=== PATIENT | female | born 1975 | race Caucasian/White ===

== ENCOUNTER 2017-08-19 13:25 | Emergency (ER) | payer OTHER, SELFPAY ==
[2017-08-19] VITALS (7 sets, daily range): BP systolic 99–135; BP diastolic 65–90; PULSE 72–86; RESP 14–18; TEMP 36.6; O2SAT 99–100; BMI 25.2
--- NOTE | 2017-08-19 13:50 | NURSING ---
NO OLD EKGS
--- NOTE | 2017-08-19 14:45 | RAD_ITS ---
STUDY: X-RAY CHEST REASON FOR EXAM: Female, 41 years old. Chest pain. TECHNIQUE: Single AP portable view of the chest. COMPARISON: None. FINDINGS: EKG liquids are seen. The lungs are clear and expanded. There is no demonstrated pleural abnormality. Normal size heart. Normal mediastinum and stephen. Normal visualized pulmonary arteries. Normal visualized aortic arch and descending thoracic aorta. Minimal dextroscoliosis. Normal visualized ribs, clavicles, and shoulders. There is no demonstrated abnormality of the visualized soft tissue structures of the upper abdomen. RAD/Chest 1 View (Portable) IMPRESSION: Normal x-ray examination of the chest. Electronically Signed: Timbo Wagner MD at 15:32 EST Tel [phone], Service support ,
--- NOTE | 2017-08-19 14:45 | EKG12_ITS ---
Test Reason : CP Blood Pressure : / mmHG Vent. Rate : 072 BPM Atrial Rate : 072 BPM P-R Int : 172 ms QRS Dur : 082 ms QT Int : 366 ms P-R-T Axes : 073 074 052 degrees QTc Int : 400 ms Normal sinus rhythm with sinus arrhythmia Normal ECG Confirmed by PARUL BERNARD, MAYUR ([id number]), website/blog editor EFRAIN GUTIERREZ ([id number]) on 08/20/2017 2:26:58 PM Referred By: COURTNEY/MARY Confirmed By:MAYUR TERAN MD
[2017-08-19 14:56] LABS: Absolute Lymphocyte Count 2.29 X10^3/ul (0.83-4.51); Absolute Neutrophil Count 5.4 X10^3/uL (2.0-7.7); Basophil# 0.03 X10^3/uL; Basophil% 0.4 % (0-1); Eosinophil# 0.14 X10^3/uL; Eosinophils% 1.6 % (0-5); Hemoglobin 11.4 g/dl (12.0-15.0); Lymphocyte # 2.29 X10^3/ul (4.0); Lymphocyte % 26.9 % (19-41); Mean Corp Hgb Conc 31.7 g/gl (32-36); Mean Corpuscular Hgb 28.5 pg (27.0-32.0); Mean Platelet Vol. 10.7 fl (6.2-12.0); Monocyte# 0.62 X10^3/uL; Monocyte% 7.3 % (0-10); Neutrophil # 5.42 X10^3/uL (2.7-7.7); Neutrophil % 63.7 % (47-70); POSITIVE COUNT NO; POSITIVE DIFFERENTIAL NO; POSITIVE MORPHOLOGY NO; Platelet Count 269 K/mm3 (150-450); RBC Distribution Width SD 56.3 fl (35.1-43.9); White Blood Count 8.5 K/mm3 (4.4-11.0)
[2017-08-19] MEDS: Aspirin 81 MG TAB.CHEW 324 MG PO (14:57)
[2017-08-19 15:09] LABS: Anion Gap 4 (5-15); BUN 13 mg/dL (7-18); BUN/Creat Ratio 14.8 RATIO (10-20); Calcium,Total 8.7 mg/dL (8.5-10.1); Chloride 107 mmol/L (98-107); Creatinine, Serum 0.88 mg/dL (0.55-1.02); EST Glomerular Filtration Rate 74 mL/min (>60); Est Glom Filt Rate - Afr Amer 90 mL/min (>60); Estimated Creatinine Clearance 77.17 ml/min; Glucose 77 mg/dL (74-106); Potassium 3.6 mmol/L (3.5-5.1); Sodium Level 139 mmol/L (136-145)
--- NOTE | 2017-08-19 17:08 | ED.VISSUMM ---
- ER Visit Summary Date of Service: 08/19/17 Chief Complaint: Chest pain History of Present Illness: The patient is a 41 F sudden chest pressure awakening her at 3 AM this morning. Waxing and waning symptoms. States feels like somebody sitting on her chest. No radicular symptoms. No nausea, dyspnea, diaphoresis. Patient saw the urgent care was sent here. States she was diagnosed with a PE this past May postsurgical complication. States an ACL repair at that time. She is taking her Eliquis twice a day with no missed doses. No tobacco history. No family history of MIs young age. Denies history of hypertension, hypercholesterolemia, or diabetes. No other complaints. Physical Examination: General: Alert and oriented ?3, no acute distress HEENT: Normocephalic, atraumatic. Moist mucosa membranes Neck: supple, nontender. Cardiovascular: Regular rate and rhythm, no murmurs Respiratory: Normal breath sounds, symmetric, no distress Abdomen: Soft, nontender, nondistended Extremities: Nontender, no edema, pulses intact ?4 Neuro: no focal neurological deficits. Test Results: EKG: Sinus, rate of 72, no ST or T-wave changes. Cardiac workup screw troponin is negative. Repeat troponin pending. Emergency Department Course and Treatment: Patient no acute distress complains of pressure symptoms. EKG negative. Cardiac workup initiated negative. She given aspirin, she had resolution of symptoms after 2 nitro sublingual. Heart score is a 1. GERA score 0. She is currently taking her Eliquis twice a day with no missed doses, less likely PE in nature. Discussed heart pathway guideline with the patient, she is low risk. Discussed with her symptoms resolve after 2 nitro, I recommended repeating troponin at 3 hours for further evaluation. If negative she can follow up with her PCP for outpatient testing. She agrees with the plan. Patient be signed out afternoon physician for follow-up on troponin. Treatment Plan: [] Disposition: Plan discharge Impression: Acute chest pain This note was generated with [employer] dictation software. It may contain incorrect words, spelling, and punctuation that were not noted in review of the chart prior to signing ED Disposition - Plan for ED Patient: Chief Complaint: Chest Pain Diagnosis: Chest pain Instructions: ED Chest Pain Atypical Unkn Cause Referrals: Kyle Young MD [Primary Care Provider] - 3-5 Days
--- NOTE | 2017-08-19 17:12 | ED.DCSUM_ITS ---
- ER Visit Summary Date of Service: 08/19/17 Chief Complaint: Chest pain History of Present Illness: The patient is a 41 F sudden chest pressure awakening her at 3 AM this morning. Waxing and waning symptoms. States feels like somebody sitting on her chest. No radicular symptoms. No nausea, dyspnea , diaphoresis. Patient saw the urgent care was sent here. States she was diagnosed with a PE this past May postsurgical complication. States an ACL repair at that time. She is taking her Eliquis twice a day with no missed doses. No tobacco history. No family history of MIs young age. Denies history of hypertension, hypercholesterolemia, or diabetes. No other complaints. Physical Examination: General: Alert and oriented ?3, no acute distress HEENT: Normocephalic, atraumatic. Moist mucosa membranes Neck: supple, nontender. Cardiovascular: Regular rate and rhythm, no murmurs Respiratory: Normal breath sounds, symmetric, no distress Abdomen: Soft, nontender, nondistended Extremities: Nontender, no edema, pulses intact ?4 Neuro: no focal neurological deficits. Test Results: EKG: Sinus, rate of 72, no ST or T-wave changes. Cardiac workup screw troponin is negative. Repeat troponin pending. Emergency Department Course and Treatment: Patient no acute distress complains of pressure symptoms. EKG negative. Cardiac workup initiated negative. She given aspirin, she had resolution of symptoms after 2 nitro sublingual. Heart score is a 1. GERA score 0. She is currently taking her Eliquis twice a day with no missed doses, less likely PE in nature. Discussed heart pathway guideline with the patient, she is low risk. Discussed with her symptoms resolve after 2 nitro, I recommended repeating troponin at 3 hours for further evaluation. If negative she can follow up with her PCP for outpatient testing. She agrees with the plan. Patient be signed out afternoon physician for follow-up on troponin. Treatment Plan: [] Disposition: Plan discharge Impression: Acute chest pain This note was generated with [employer] dictation software. It may contain incorrect words, spelling, and punctuation that were not noted in review of the chart prior to signing ED Disposition - Plan for ED Patient: Chief Complaint: Chest Pain Diagnosis: Chest pain Instructions: ED Chest Pain Atypical Unkn Cause Referrals: Kyle Young MD [Primary Care Provider] - 3-5 Days
--- NOTE | 2017-08-19 18:28 | ED.VISSUMM ---
- ER Visit Summary Date of Service: 08/19/17 Addendum: This patient was checked out to me by Dr. Loyola with a repeat troponin pending. This is returned and is negative. Test Results: Repeat troponin is less than 0.02. Emergency Department Course and Treatment: Patient is resting comfortably and without complaint. Treatment Plan: She will be discharged instructions to follow-up per Dr. Loyola's dictation. Return to the emergency department for any worsening symptoms. Disposition: To home in improved and stable condition. This note was generated with [employer] dictation software. It may contain incorrect words, spelling, and punctuation that were not noted in review of the chart prior to signing ED Disposition - Plan for ED Patient: Chief Complaint: Chest Pain Diagnosis: Chest pain Instructions: ED Chest Pain Atypical Unkn Cause Referrals: Kyle Young MD [Primary Care Provider] - 3-5 Days
== END 2017-08-19 19:09 | disposition home or self-care (01) ==
PROVIDERS: Emergency Provider Emergency Medicine; Family Provider Family Medicine; PCP Family Medicine
DX: R07.89 Other chest pain (principal); Z86.711 Personal history of pulmonary embolism; Z86.718 Personal history of other venous thrombosis and embolism; Z79.02 Long term (current) use of antithrombotics/antiplatelets; Z79.899 Other long term (current) drug therapy
CPT/HCPCS: 71045; 80048; 84484; 85025; 93005; 99285; A4216

== ENCOUNTER 2017-10-02 09:00 | Outpatient (RCR) | payer OTHER, SELFPAY ==
--- NOTE | 2017-06-20 16:59 | HP.PTEVAL ---
Patient's Visit Information CARLOS NEGRON is a 41 year old F referred to Physical Therapy by Kevin Smith DO with a diagnosis of s/p L ACL allograft 05/28. Date of Evaluation: 06/20/17 Physical Therapist: Qasim Paredes DPT, OC - Visit Plan Frequency: 3x /Week Duration: 4 Months Plan: 3x/week for first month then likely 2x/week for total of 16 weeks for progression of ... 1. A/PROM L knee and stretch quad and HS and ITB and patellar mobs. 2. Strength L LE to tolerance. 3. gait training. 4. Swelling management with ice and elevation. Has blood clotquad - Subjective Subjective: May 28 L ACL, blood clots 6 days later. One went to lung. Now on eloquist. Dr. Ortega 3 taking care of blood clots, no precautions. To ER if pain on inner L leg. Gets cramping in thigh. Pain level is not good. Up to 6/10 with brace on improperly or bending it. No pain at rest. Sleeps not good due to brace . Needs to wear it, locked in WB. Sleeps on side with pillow. 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 Doing basic ADLs at home. Wants to ride a bike 60 miles per week. Elliptical. Wants to run 5K. - Pain L knee anterior. Pain Intensity (Out of 10): 0 Pain Intensity Range: 0, 6 - Objective 54cm R and 51 L 6 inch suprapatella girth. -2 to 65 degrees L knee motion, patella very stiff vs R. to 70 degrees seated and hanging. Pt has very difficult time relaxing. SLR very difficult and needs mental reaasurance, 10 degree ext lag. Hip strength 4- L and 4 R, Knee L not tested strength. R knee strength 4+. ankle motion full and painfree B. Walks FWB with brace locked with good gait pattern, more sore without AD, recommended continuing with AD until not sore. Transfers to and fro supine I. Atrophy apparent in L quad and hard time getting solid contraction today in supine. - Goals Goal 1:: ST: 0-125 degree AROM without pain and good quad contraction. Goal Time Frame: 4-6 Weeks Goal 2:: ST: walk community without AD withtout brace when allowed by doctor. Goal Time Frame: 4-6 Weeks Goal 3:: ST: steps reciprocal without pain. Goal Time Frame: 4-6 Weeks Goal 4:: LT: plan to return to work and start train for 5k Goal Time Frame: 12-16 Weeks - Rehabilitation Potential Physical Therapy Diagnosis: ACL tear s/p repair Rehabilitation Potential: Good - Anticipated Interventions Patient/Client Instruction: Educate patient on: Plan of Care For the Purpose of:: To decrease pain, To decrease swelling/inflammation, To increase ROM, To improve nutrient delivery to tissue Therapeutic Exercise to Include: Strength training, Flexibilty training, Gait and locomotor training, Passive ROM, Active ROM Comment: eventual return to function. For the Purpose of:: To decrease pain, To decrease swelling/inflammation, To increase ROM, To improve nutrient delivery to tissue, To improve ability of physical actions for home/community/work/leisure, To improve gait and locomotor functions Manual Therapy Techniques to Include: Passive ROM Comment: patellar mobs For the Purpose of:: To increase ROM Cryotherapy (ice pack, ice massage): Yes For the Purpose of:: To decrease swelling/inflammation Thank you for the opportunity to evaluate your patient. For Medicare and Medicare HMO plans, please review the plan of care and approve it. It will need to be FAXED BACK to us at [phone] for Medicare purposes. Please let me know if there are questions or concerns regarding this plan of care. Physician Signature: Date:
--- NOTE | 2017-08-01 19:04 | HP.PTREVAL_ITS ---
Kevin Smith, DO, It has been my pleasure to treat CARLOS NEGRON over the last 16 visits for s/p L ACL allograft 05/28. Please see the progress note below for an update on the physical therapy plan of care! Subjective: [place] on vacation. Walked alot and felt better as she walked more. Objective/Function: 0-115 actively and 117 passively. Walking looks good. Steps are mentally challenging. Pt has pain under kneecap with WB ecc quad that she mentally cannot force herself to do. I think she needs to to help the scar tissue remodel. OVERALL PATIENT DOING MUCH BETTER WITH ROM BUT IS OVERPROTECTIVE WITH PAIN AT END RANGES AND DOWS NOT DEAL WITH PAIN WELL IN GENERAL. NEEDS TO PROGRESS TO STRENGTHENING AND GET OVERF MENTAL JASPER OF PAIN UNDER KNEECAP WITH WB STRENGTH/STEPS/CHAIR TRANSFER. Plan Plan: 3X/WEEK FOR 3-4...Gym based LE strengthening, dips, chair squats, monitor ROM. Pt to doctor Saturday, then hoff ee to progress strengthening. Goals Goal 1:: ST: 0-125 degree AROM without pain and good quad contraction. Goal Time Frame: 4-6 Weeks Goal 2:: ST: walk community without AD withtout brace when allowed by doctor. Goal Time Frame: 4-6 Weeks Goal Progress: Goal Met Goal 3:: ST: steps reciprocal without pain. Goal Time Frame: 4-6 Weeks Goal 4:: LT: plan to return to work and start train for 5k Goal Time Frame: 12-16 Weeks Anticipated Interventions Patient/Client Instruction: Educate patient on: Plan of Care For the Purpose of:: To decrease pain, To decrease swelling/inflammation, To increase ROM, To improve nutrient delivery to tissue Therapeutic Exercise to Include: Strength training, Flexibilty training, Gait and locomotor training, Passive ROM, Active ROM Comment: eventual return to function. For the Purpose of:: To decrease pain, To decrease swelling/inflammation, To increase ROM, To improve nutrient delivery to tissue, To improve ability of physical actions for home/community/work/leisure, To improve gait and locomotor functions Manual Therapy Techniques to Include: Passive ROM Comment: patellar mobs For the Purpose of:: To increase ROM Cryotherapy (ice pack, ice massage): Yes For the Purpose of:: To decrease swelling/inflammation Please do not hesitate to contact me at [phone] by phone or Fax: if you have questions or concerns regarding this new plan of care! Sincerely, Qasim Paredes, DPT, OC
--- NOTE | 2017-08-07 10:22 | HP.PTREVAL_ITS ---
Kevin Smith, DO, It has been my pleasure to treat CARLOS NEGRON over the last 18 visits for s/p L ACL allograft 05/28. Please see the progress note below for an update on the physical therapy plan of care! Subjective: Did 10 min on ellitical and bike x 10 min each and was very tired. Objective/Function: ot behind knee cap hurts with squats and leg press concentrically. 124 degree flexion today. OVERALL DOING WELL WITH IMPROVING ROM, STILL VERY WEAK EXPECTEDLY IN L KNEE. TOLERATING NEW ACTIVITIES WELL. HAS MUSCLE CONTRACTIONS THAT LIMIT PASSIVE MOBILITY, ROM MUCH BETTER WHEN SHE IS IN CONTROL Plan Plan: 3x/week x 3 weeks for strength, patellar mobs and ensure improving RPOM ext adn flexion L knee. Goals Goal 1:: ST: 0-125 degree AROM without pain and good quad contraction. Goal Time Frame: 4-6 Weeks Goal 2:: ST: walk community without AD withtout brace when allowed by doctor. Goal Time Frame: 4-6 Weeks Goal Progress: Goal Met Goal 3:: ST: steps reciprocal without pain. Goal Time Frame: 4-6 Weeks Goal 4:: LT: plan to return to work and start train for 5k Goal Time Frame: 12-16 Weeks Anticipated Interventions Patient/Client Instruction: Educate patient on: Plan of Care For the Purpose of:: To decrease pain, To decrease swelling/inflammation, To increase ROM, To improve nutrient delivery to tissue Therapeutic Exercise to Include: Strength training, Flexibilty training, Gait and locomotor training, Passive ROM, Active ROM Comment: eventual return to function. For the Purpose of:: To decrease pain, To decrease swelling/inflammation, To increase ROM, To improve nutrient delivery to tissue, To improve ability of physical actions for home/community/work/leisure, To improve gait and locomotor functions Manual Therapy Techniques to Include: Passive ROM Comment: patellar mobs For the Purpose of:: To increase ROM Cryotherapy (ice pack, ice massage): Yes For the Purpose of:: To decrease swelling/inflammation Please do not hesitate to contact me at [phone] by phone or Fax: if you have questions or concerns regarding this new plan of care! Sincerely, Qasim Paredes, DPT, OC
--- NOTE | 2017-08-30 09:54 | HP.PTREVAL_ITS ---
Kevin Smith, DO, It has been my pleasure to treat CARLOS NEGRON over the last 24 visits for s/p L ACL allograft 05/28. Please see the progress note below for an update on the physical therapy plan of care! Subjective: Had sinus infection Saturday. 0-3/10 pain. 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 To doctor in 3 months. Sleeping well. Working normal job. Activities at home are normal. Half way to normal workout , still working on strength and cardio. Not icing at all. Wants to wean off of therapy. Objective/Function: 0-125 aROM today, tighness present in quad and palpable nodules above kneecap but decent knee cap mobility. Walks without deviations, steps reciprocal without rail. OVERALL DOING GREAT. HAS BEEN A LONG ROAD TO HOE. WILL WEAN OFF OF THERAPY OVER THE NEXT MONTH TO MONITOR ROM AND SORENESS/ STIFFNESS WHICH IS HER BIGGEST BEEF BUT NOT UNEXPECTED AT THIS POINT. Plan Plan: 1X/WEEK FOR 4-5 WEEKS TO MONITOR rom, PATELLAR MOBS, QUAD AND hs ROLL AND STRETCH AND ENSURE PROGRESS. Goals Goal 1:: ST: 0-125 degree AROM without pain and good quad contraction. Goal Time Frame: 4-6 Weeks Goal Progress: Goal Met Goal 2:: ST: walk community without AD withtout brace when allowed by doctor. Goal Time Frame: 4-6 Weeks Goal Progress: Goal Met Goal 3:: ST: steps reciprocal without pain. Goal Time Frame: 4-6 Weeks Goal Progress: Goal Met Goal 4:: LT: plan to return to work and start train for 5k Goal Time Frame: 12-16 Weeks Goal Progress: Progressing Goal 5:: Stoop comfortably and recover. Goal Time Frame: 4-6 Weeks Goal Progress: NEW GOAL Goal 6:: ENsure progression with ROM and comfort with workout wioth less therapy in order to D/C Goal Time Frame: 4-6 Weeks Goal Progress: NEW GOAL Anticipated Interventions Patient/Client Instruction: Educate patient on: Plan of Care For the Purpose of:: To decrease pain, To decrease swelling/inflammation, To increase ROM, To improve nutrient delivery to tissue Therapeutic Exercise to Include: Strength training, Flexibilty training, Gait and locomotor training, Passive ROM, Active ROM Comment: eventual return to function. For the Purpose of:: To decrease pain, To decrease swelling/inflammation, To increase ROM, To improve nutrient delivery to tissue, To improve ability of physical actions for home/community/work/leisure, To improve gait and locomotor functions Manual Therapy Techniques to Include: Passive ROM Comment: patellar mobs For the Purpose of:: To increase ROM Cryotherapy (ice pack, ice massage): Yes For the Purpose of:: To decrease swelling/inflammation Please do not hesitate to contact me at [phone] by phone or Fax: if you have questions or concerns regarding this new plan of care! Sincerely, Qasim Paredes, DPT, OC
--- NOTE | 2017-12-05 15:47 | HP.PTDCSUM_ITS ---
HP - PT D/C Summary It has been my pleasure to treat CARLOS NEGRON under orders from Kevin Smith DO, for the diagnosis of s/p L ACL allograft 05/28 for a total of 27 visit(s). Discharge Date: 10/02/17 Please see the following information for a summary of their discharge status. - Subjective Subjective: Muscles are sore from working out with industrial trainer. Feeling good otherwise. - Pain L knee anterior. Pain Intensity (Out of 10): 0 - Objective Objective/Function: 0-137 degrees with overpressure into both ranges. End range pain. Right knee 0-155 - Goals Goal 1:: ST: 0-125 degree AROM without pain and good quad contraction. Goal Progress: Goal Met Goal 2:: ST: walk community without AD withtout brace when allowed by doctor. Goal Progress: Goal Met Goal 3:: ST: steps reciprocal without pain. Goal Progress: Goal Met Goal 4:: LT: plan to return to work and start train for 5k Goal Progress: Progressing Goal 5:: Stoop comfortably and recover. Goal Progress: Progressing Goal 6:: ENsure progression with ROM and comfort with workout wioth less therapy in order to D/C Goal Progress: Goal Met - Plan Plan: Re-check with Qasim Paredes DPT. 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 If there are questions or concerns regarding this patient's physical therapy, please feel free to call me at [phone]. Thank you for the referral of this patient. Sincerely, Qasim Paredes, JULIENT, OC
== END 2017-10-02 19:00 | disposition home or self-care (01) ==
LOC: PT 09:00
PROVIDERS: Family Provider Family Medicine; PCP Family Medicine; Visit Provider Orthopaedic Surgery
DX: Z98.890 Other specified postprocedural states (principal)
CPT/HCPCS: 97014; 97110; 97140; 97161; 97530; G0283

== ENCOUNTER 2018-01-16 19:52 | Emergency (ER) | payer OTHER, SELFPAY ==
[2018-01-16 19:54] VITALS: BP 128/69; PULSE 105; PULSE 111; RESP 18; TEMP 36.7; O2SAT 96; O2SAT 97; BMI 24.3
[2018-01-16] MEDS: DiphenhydrAMINE 50 MG/ML Syringe 25 MG IV (20:21)
[2018-01-16] MEDS: 0.9% Normal Saline 1,000 ML 1000 ML IV (20:21)
[2018-01-16 20:33] LABS: Absolute Lymphocyte Count 2.26 X10^3/ul (0.83-4.51); Absolute Neutrophil Count 4.6 X10^3/uL (2.0-7.7); Basophil# 0.02 X10^3/uL; Basophil% 0.3 % (0-1); Eosinophil# 0.07 X10^3/uL; Hematocrit 38.3 % (37-47); Hemoglobin 12.1 g/dl (12.0-15.0); Lymphocyte # 2.26 X10^3/ul (4.0); Mean Corp Hgb Conc 31.6 g/gl (32-36); Mean Corpuscular Hgb 27.4 pg (27.0-32.0); Mean Corpuscular Volume 86.7 fL (81-99); Mean Platelet Vol. 10.4 fl (6.2-12.0); Monocyte# 0.38 X10^3/uL; Monocyte% 5.2 % (0-10); Neutrophil # 4.55 X10^3/uL (2.7-7.7); Neutrophil % 62.5 % (47-70); Platelet Count 278 K/mm3 (150-450); RBC Distribution Width CV 17.3 % (11.6-14.6); RBC Distribution Width SD 54.4 fl (35.1-43.9); Red Blood Count 4.42 M/mm3 (4.2-5.4); White Blood Count 7.3 K/mm3 (4.4-11.0)
[2018-01-16 20:34] LABS: POSITIVE COUNT NO; POSITIVE DIFFERENTIAL NO; POSITIVE MORPHOLOGY NO
[2018-01-16 20:47] LABS: Anion Gap 8 (5-15); BUN 17 mg/dL (7-18); BUN/Creat Ratio 15.7 RATIO (10-20); Chloride 103 mmol/L (98-107); Creatinine, Serum 1.08 mg/dL (0.55-1.02); EST Glomerular Filtration Rate 59 mL/min (>60); Est Glom Filt Rate - Afr Amer 71 mL/min (>60); Estimated Creatinine Clearance 62.23 ml/min; Glucose 77 mg/dL (74-106); Potassium 3.9 mmol/L (3.5-5.1); Sodium Level 142 mmol/L (136-145)
--- NOTE | 2018-01-16 20:51 | ED.VISSUMM ---
- ER Visit Summary Date of Service: 01/16/18 Chief Complaint: Rectal bleeding History of Present Illness: The patient is a 42 F resents to the emergency department with sudden onset rectal bleeding. Patient has a history of hemorrhoids. She actually follows with Dr. Corrales. The patient has a history of pulmonary embolus after a knee surgery and is fully anticoagulated on Eliquis. She states that she was at a dinner republican tonight. She states that she had sudden onset and felt like something burst. She states that she had a difficult time getting it to stop so she presented here. Physical Examination: Vital signs reviewed General: Well-nourished, well-developed Head: Normocephalic, atraumatic Eyes: Pupils equal and reactive, extraocular muscles intact Neck, supple, no lymphadenopathy Heart: Regular rate and rhythm Respiratory: No distress, clear bilaterally Abdomen: Soft, nontender, nondistended, no peritoneal signs Back: Nontender Extremities: Nontender, no edema, no cords Skin: Normal color no rash Neuro: Alert and oriented, no focal or lateralizing deficits Test Results: [] Emergency Department Course and Treatment: Rectal exam was done with nurse fire range technician. Patient does have a partially thrombosed hemorrhoid at the 4 o'clock position with some venous bleeding. Surgifoam and pressure dressing was applied. Patient was observed. She did have some slight rebleeding when she went to the bathroom. She was repacked. The patient was observed for another hour and her bleeding is stopped. I did discuss care with Dr. Cuevas who agreed with outpatient follow-up as the patient is established with Dr. Corrales. Again, she has had no further bleeding. Blood counts are within normal limits. She has had resolution of her tachycardia. I do feel that she is safe for outpatient therapy. Treatment Plan: [] Disposition: Discharge Impression: 1. Bleeding hemorrhoid-resolved This note was generated with [employer] dictation software. It may contain incorrect words, spelling, and punctuation that were not noted in review of the chart prior to signing ED Disposition - Plan for ED Patient: Disposition: Home or Assisted Living Chief Complaint: GI Bleed Instructions: ED Hemorrhoids Referrals: Vin Aguilar MD [STAFF PHYSICIAN] -
[2018-01-16 22:13] VITALS: BP 119/71; PULSE 81; RESP 16; O2SAT 99
== END 2018-01-16 22:15 | disposition home or self-care (01) ==
LOC: ED 20:40
PROVIDERS: Emergency Provider Emergency Medicine; Family Provider Family Medicine; PCP Family Medicine
DX: K64.5 Perianal venous thrombosis (principal); K62.5 Hemorrhage of anus and rectum; Z86.711 Personal history of pulmonary embolism; Z79.02 Long term (current) use of antithrombotics/antiplatelets; Z79.899 Other long term (current) drug therapy
CPT/HCPCS: 80048; 85025; 96361; 96374; 99283; J7030

== ENCOUNTER 2018-09-29 09:22 | Emergency (ER) | payer OTHER, SELFPAY ==
[2018-05-29 10:09] VITALS: BMI 24.3
[2018-09-29 09:22] VITALS: BP 112/80; PULSE 88; RESP 16; TEMP 36.4; O2SAT 100; BMI 25.2
--- NOTE | 2018-09-29 09:54 | CT_ITS ---
STUDY: CT BRAIN WITHOUT CONTRAST REASON FOR EXAM: Female, 42 years old. Headaches. Sinusitis. RADIATION DOSAGE (If Supplied By Facility): CTDIvol = ( 44.99 ) mGy, DLP = ( 745.49 ) mGycm TECHNIQUE: Transaxial CT imaging of the brain was performed without administration of intravenous contrast material. Individualized dose optimization techniques were used for this CT. COMPARISON: Comparison is made with prior study dated March 14, 2013. FINDINGS: Normal soft tissue structures. Normal calvarium. Normal size ventricles and extra-axial spaces for the patient's age. Normal white matter tracts of the cerebral hemispheres. There is a 5.7 mm subtle hypodensity in the left thalamus. This may represent a lacunar infarct. A similar appearing lacunae is seen in the right basal ganglion. Normal brainstem. Normal cerebellum. There is no intracranial hemorrhage. There are no findings of an acute ischemic infarction. Partial opacification of the ethmoid sinuses. Mucosal polyp or retention cyst at the base of the left maxillary sinus. CT/Brain/Head without Contrast IMPRESSION: 5.7 mm subtle hypodensity in the left thalamus. A tiny lacuna is also seen in the right basal ganglion. Electronically Signed: Timbo Wagner, at 10:54 EDT , Service support ,
[2018-09-29] MEDS: DiphenhydrAMINE 50 MG/ML Syringe IV (10:20)
[2018-09-29] MEDS: 0.9% Normal Saline 1,000 ML 999 ML IV (10:20)
[2018-09-29] MEDS: proCHLORPERazine 10 MG/2 ML Vial IV (10:20)
[2018-09-29] MEDS: Ketorolac 30 MG/ML Syringe IV (10:20)
--- NOTE | 2018-09-29 10:24 | ED.DCSUM_ITS ---
- ER Visit Summary Date of Service: 09/29/18 Chief Complaint: Headache History of Present Illness: The patient is a [address] Lew Ortega III. She reports that she has a headache that began yesterday. Is gradually gotten worse. Is a diffuse dull pain with sharp pain posterior to her right eye. S tates is 10 out of 10 in severity. Is worsened by movement or light. She is taking Excedrin, Advil, and Benadryl without relief. She does report that she has photophobia and blurred vision. She denies any fever. She has had nausea without vomiting. She denies any numbness or weakness. Patient also reports that she has had sinus congestion and drainage over the past few days. However, she reports that she has not had a fever. No purulent drainage. Physical Examination: Vitals: Stable. Afebrile. General: Well-nourished and well-developed. Head: Normocephalic atraumatic. Neck: Supple, no lymphadenopathy. No JVD. Nontender. Cardiovascular: Regular rate and rhythm. No murmurs. Respiratory: No respiratory distress. Clear to auscultation bilaterally. Abdominal: Soft, nontender, nondistended, normal bowel sounds. No guarding, rebound, or peritoneal signs. Back: Nontender. Extremities: Nontender, no edema. Skin: Normal color, no rash. Neurologic: Alert and oriented ?3. Cranial nerves II through XII are intact. Normal strength and sensation. Psych: Normal affect. Test Results: CT head shows a 5.7 mm subtle hypodensity in the left thalamus. Tiny lacunae in the right basal ganglia. Because of this an MRI was obtained which shows no lesions. CBC shows segment neutrophils 80 and lymphocytes 13. Chem-7 shows a chloride of 110. test is negative. Clinical Impression(s) from Imaging Studies Brain CT 09/29/18 09:54 IMPRESSION: 5.7 mm subtle hypodensity in the left thalamus. A tiny lacuna is also seen in the right basal ganglion. Electronically Signed: Timbo Wagner, at 10:54 EDT , Service support , Brain MRI 09/29/18 11:17 IMPRESSION: Normal unenhanced MRI of the brain. Electronically Signed: Chanel Ryder MD at 13:00 EDT Tel , Service support , Emergency Department Course and Treatment: Patient had an IV placed. She is given Toradol, Benadryl, and Compazine IV. She is resting comfortably. Treatment Plan: Patient will be discharged instructions follow-up Dr. Lew Ortega iii in 1-2 days if not improving. Return to the emergency department for any worsening symptoms. Disposition: To home in improved and stable condition. Impression: 1. Cephalgia. This note was generated with [employer] dictation software. It may contain incorrect words, spelling, and punctuation that were not noted in review of the chart prior to signing ED Disposition - Plan for ED Patient: Disposition: Home or Assisted Living Instructions: ED Cephalgia Unspecified Referrals: Lew Ortega III, MD [Primary Care Provider] - 1-2 Days if not improving
--- NOTE | 2018-09-29 11:17 | MRI_ITS ---
STUDY: MRI BRAIN WITHOUT CONTRAST REASON FOR EXAM: Female, 42 years old. headache, hx migraines, follow up to abnormal ct brain. TECHNIQUE: Standardized multiplanar fat and water weighted pulse sequences were obtained. COMPARISON: September 29, 2018 FINDINGS: Normal size of the ventricles and extra-axial spaces for the patient's age. Normal white matter tracts of the supratentorial brain. Normal bilateral basal ganglia. Normal thalami. There is no extra-axial fluid accumulation. Normal flow voids within the major intracranial circulation suggesting patency by spin echo criteria. Normal sella turcica, pituitary gland, infundibular stalk, optic chiasm and hypothalamus. Normal tectal plate and pineal gland. Normal midbrain, corie and medulla. Normal cerebellum. Normal basal cisterns. Normal bilateral temporal bones. Normal bilateral internal auditory canals. MRI/Brain without Contrast IMPRESSION: Normal unenhanced MRI of the brain. Electronically Signed: Chanel Ryder MD at 13:00 EDT Tel , Service support ,
[2018-09-29 12:27] LABS: Absolute Lymphocyte Count 1.17 X10^3/ul (0.83-4.51); Absolute Neutrophil Count 7.5 X10^3/uL (2.0-7.7); Basophil# 0.01 X10^3/uL; Basophil% 0.1 % (0-1); Eosinophil# 0.04 X10^3/uL; Eosinophils% 0.4 % (0-5); Hematocrit 39.2 % (37-47); Hemoglobin 12.8 g/dl (12.0-15.0); Lymphocyte # 1.17 X10^3/ul (4.0); Lymphocyte % 12.6 % (19-41); Mean Corp Hgb Conc 32.7 g/gl (32-36); Mean Corpuscular Volume 85.8 fL (81-99); Mean Platelet Vol. 10.9 fl (6.2-12.0); Monocyte# 0.61 X10^3/uL; Monocyte% 6.5 % (0-10); Neutrophil # 7.48 X10^3/uL (2.7-7.7); Neutrophil % 80.3 % (47-70); Platelet Count 253 K/mm3 (150-450); RBC Distribution Width CV 17.5 % (11.6-14.6); RBC Distribution Width SD 54.9 fl (35.1-43.9); Red Blood Count 4.57 M/mm3 (4.2-5.4); White Blood Count 9.3 K/mm3 (4.4-11.0)
[2018-09-29 12:33] LABS: Internal QC Validated? YES +Cl - CLEAR BKGD; Pregnancy, Serum, hCG Quali. NEGATIVE Negative
[2018-09-29 12:37] LABS: Anion Gap 6 (5-15); BUN 13 mg/dL (7-18); BUN/Creat Ratio 12.7 RATIO (10-20); Calcium,Total 8.5 mg/dL (8.5-10.1); Chloride 110 mmol/L (98-107); Creatinine, Serum 1.02 mg/dL (0.55-1.02); EST Glomerular Filtration Rate 62 mL/min (>60); Est Glom Filt Rate - Afr Amer 75 mL/min (>60); Estimated Creatinine Clearance 65.89 ml/min; Glucose 80 mg/dL (74-106); Potassium 4.2 mmol/L (3.5-5.1); Sodium Level 140 mmol/L (136-145)
[2018-09-29 12:40] LABS: POSITIVE COUNT NO; POSITIVE DIFFERENTIAL NO; POSITIVE MORPHOLOGY NO
[2018-09-29 14:00] VITALS: BP 99/72; PULSE 69; RESP 18; O2SAT 99
== END 2018-09-29 14:01 | disposition home or self-care (01) ==
PROVIDERS: Emergency Provider Emergency Medicine; Family Provider Family Medicine; PCP Family Medicine
DX: R51 Headache (principal)
CPT/HCPCS: 70450; 70551; 80048; 84703; 85025; 96361; 96374; 96375; 99284; J7030; A4216

== ENCOUNTER 2018-11-14 08:30 | Outpatient (RCR) | payer OTHER, SELFPAY ==
[2018-10-14 08:56] VITALS: BMI 25.2
[2018-10-20 09:00] VITALS: BMI 25.2
--- NOTE | 2018-10-24 11:31 | HP.PTEVAL_ITS ---
Patient's Visit Information CARLOS NEGRON is a 42 year old F referred to Physical Therapy by Lew Ortega III, MD with a diagnosis of Lumbar strain. Date of Evaluation: 10/24/18 Physical Therapist: Amandeep Moore DPT - Visit Plan Frequency: 2-3x /Week Duration: 4-6 Weeks Plan: Start with gentle lumbar mobs, prone lying, prone prop progressing to REIL as tolerated, gentle TA progression as tolerated. Pt. indicated to progress walking program as tolerated. Pt. consents to POC. May trial DN as tolerated for muscle tension/soreness of lumbar spine. - Subjective Findings: Pt. is here today for her initial evaluatuion with diagnosis of lumbar strain. Pt. 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 This pain was on R side of lumbar spine and into hip at times. Pt. reports this pain alleviated, but ~2-3 weeks ago she was back squating in gym and felt sharp pain in her back and was unable to lift the wt. back up. Pt. reports her pain has been bad since. She does have days that are better and others that are worse. Pt. starts in lubar spine and radiates down L leg to knee. Pt. reports N/T in similar region as well. Increases pain: sitting, bending foward, lifting, and twisting. Decreased pain: walking, sitting upright with good posture. Pt. has been going to chiro for her pain with mixed results. She reports some days she walks out with minimal pain, sometimes is it worse, but the next day is usually better. Pt. is very active and does bar herring lifting in gym. Pt. sleeps on her side with pillow between her knees, but has a hard time getting comfortable. Pt. is hopeful to reduce her symptoms in order to get back to all recreational activities without increase in symptoms. - Pain lumbar spine Pain Intensity (Out of 10): 4 Pain Intensity Range: 2, 8 L left to knee Pain Intensity (Out of 10): 4 Pain Intensity Range: 2, 8 - Objective POSTURE: Pt. has slight L lateral lean, but minimal. Pt. has slight wt. shift to L side. Pt. has also slight flexed posture. PALPATION: Pt. has increased tenderness along B lumbar erector spine, increased pain with spring testing to L3/L4/L5, hypmobility noted at same segments. NEURO: normal sensation of bLes. Normal DTR of bilateral patellar and achilles tendons. Pt. reports N/T in posterior thigh, but not too touch. ROM: lumbar spine: flexion mod/max loss increase NW, ext min/nil loss increase NW, SB min /nil loss increase NW bilat, rotation min loss increase NW bilat. Pt. has normal hip Rom bilaterally without increase in symptoms. MMT: Pt. has normal strength throughout BLEs, no myotomal weaknees. Core strength- fair. GAIT: Pt. ambulates without AD, but does have sligth flexed posture with slight L lateral lean. Pt. reports no increase in symptoms with postural corrections. STAIRS: No issues. - Special Tests L/S Slump test left side: Negative L/S Slump test right side: Positive L/S Left Straight Leg Raise: Negative L/S Right Straight Leg Raise: Positive L/S Instability PA Test: Negative L/S Prone Instability Test: Negative Lumbar Standing: Flexion - Mechanical Response: No effect Lumbar Standing: Flexion - Symptoms During Testing: Increases Lumbar Standing: Flexion - Symptoms After Testing: Worse Lumbar Standing: Extension - Mechanical Response: No effect Lumbar Standing: Extension - Symptoms During Testing: Increases Lumbar Standing: Extension - Symptoms After Testing: No better Lumbar Standing: Right Side Glides - Mechanical Response: No effect Lumbar Standing: Right Side [place] - Symptoms During Testing: No effect Lumbar Standing: Right Side [place] - Symptoms After Testing: No effect Lumbar Standing: Left Side [place] - Mechanical Response: No effect Lumbar Standing: Left Side [place] - Symptoms During Testing: No effect Lumbar Standing: Left Side [place] - Symptoms After Testing: No effect Lumbar Lying: Flexion - Mechanical Response: No effect Lumbar Lying: Flexion - Symptoms During Testing: Decreases Lumbar Lying: Flexion - Symptoms After Testing: No better Lumbar Lying: Extension - Mechanical Response: No effect Lumbar Lying: Extension - Symptoms During Testing: Increases Lumbar Lying: Extension - Symptoms After Testing: No worse Comments:: no pain with initial 50% of motion, increases with final 50% of motion Lumbar Static: Slouched Sit - Mechanical Response: No effect Lumbar Static: Slouched Sit - Symptoms During Testing: Increases Lumbar Static: Slouched Sit - Symptoms After Testing: Worse Lumbar Static: Sitting Erect - Mechanical Response: No effect Lumbar Static: Sitting Erect - Symptoms During Testing: Decreases Lumbar Static: Sitting Erect - Symptoms After Testing: Better Lumbar Static:Lying Prone in Extension - Mechanical Response: No effect Lumbar Static: Lying Prone in Extension - Sx During Testing: Decreases Lumbar Static: Lying Prone in Extension - Sx After Testing: Better - Goals Goal 1:: Pt. to be I with HEP. Goal Time Frame: 4-6 Weeks Goal 2:: Pt. to have increased lumbar ROM by 50% of her motion without increase in symptoms. Goal Time Frame: 4-6 Weeks Goal 3:: Pt. to have no pain with walking for unlimited distances. Goal Time Frame: 4-6 Weeks Goal 4:: Pt. to be able to sit for unlimited time frame without increase in symptoms, allowing for increased job tolerance. Goal Time Frame: 4-6 Weeks Goal 5:: Pt. to reduce radicular symptoms by 50% Goal Time Frame: 4-6 Weeks - Rehabilitation Potential Physical Therapy Diagnosis: Pt. has signs and symptoms consistent wtih radating low back pain. Pt. has pain down her R leg to knee level. Her symptoms reduce in prone lying and prone prop. They increase with final 50% of REIL movements. Pt. had negative prone instability test, + segmental hypomobility at L3-L5 with subsequent pain and + slump test. I am concered more about discogenic involvement from her low back. I talked to her about slowly progressing with prone to prone prop to REIL in pain free ranges. I would like her to add in a walking program and is allow to return to VERY light exercises in gym avoiding flexion based exercises and instructed to avoid loading her spine with wt. Pt. consents. Rehabilitation Potential: Good - Anticipated Interventions Patient/Client Instruction: Educate patient on: Condition, Risk Factors, Benefits of Fitness Program For the Purpose of:: To foster healthy habits, To improve decision making, To facilitate caregiver knowledge, To improve self management, To prevent re- injury, To improve ability to perform tasks related to life management, To improve tolerance to ADL's Therapeutic Exercise to Include: Strength training, Power training, Postural training, Flexibilty training, Passive ROM, Active ROM, Dynamic Lumbar Stabilization, Mandy Exercises For the Purpose of:: To decrease pain, To decrease swelling/inflammation, To increase ROM, To improve nutrient delivery to tissue, To increase oxygenation perfusion, To improve muscle performance and motor function, To improve ability to perform ADL's, To increase tolerance to activity/condition/position, To decrease soft tissue restriction, To increase flexibility/ROM Manual Therapy Techniques to Include: Mobilization, Passive ROM, Functional dry needling, Soft tissue mobilization For the Purpose of:: To decrease pain, To decrease swelling/inflammation, To increase ROM, To improve nutrient delivery to tissue, To increase oxygenation perfusion, To improve muscle performance and motor function Thank you for the opportunity to evaluate your patient. For Medicare and Medicare HMO plans, please review the plan of care and approve it. It will need to be FAXED BACK to us at [phone] for Medicare purposes. For Medicare only, by signing this I certify the plan of care. Please let me know if there are questions or concerns regarding this plan of care. Physician Signature: Date:
--- NOTE | 2019-02-17 11:01 | HP.PTDCNRP_ITS ---
HP - Discharge Summary (1) - Patient Information CARLOS NEGRON was seen in my office for initial evaluation on 10/24/18. The following Plan of Care was established for this patient: Initial Frequency: 2-3x /Week Initial Duration: 4-6 Weeks - Anticipated Interventions Patient/Client Instruction: Educate patient on: Condition, Risk Factors, Benefits of Fitness Program For the Purpose of:: To foster healthy habits, To improve decision making, To facilitate caregiver knowledge, To improve self management, To prevent re- injury, To improve ability to perform tasks related to life management, To improve tolerance to ADL's Therapeutic Exercise to Include: Strength training, Power training, Postural training, Flexibilty training, Passive ROM, Active ROM, Dynamic Lumbar Stabilization, Mandy Exercises For the Purpose of:: To decrease pain, To decrease swelling/inflammation, To increase ROM, To improve nutrient delivery to tissue, To increase oxygenation perfusion, To improve muscle performance and motor function, To improve ability to perform ADL's, To increase tolerance to activity/condition/position, To decrease soft tissue restriction, To increase flexibility/ROM Manual Therapy Techniques to Include: Mobilization, Passive ROM, Functional dry needling, Soft tissue mobilization For the Purpose of:: To decrease pain, To decrease swelling/inflammation, To increase ROM, To improve nutrient delivery to tissue, To increase oxygenation perfusion, To improve muscle performance and motor function This patient was last seen in our office 11/14/18. Pertinent comments regarding their Physical therapy will appear below: Pt. was seen for her low back pain. Pt. progressed well with core stability, extension exercises and DN. I talked to the patient recently and she is still not having any pain. Pt. will be DC from PT at this point intime. At this point I will be discontinuing this patient from physical therapy. I would be happy to see this patient again in the future if found appropriate by the physician. Thank you! Amandeep Moore, JULIENT
== END 2018-11-14 19:00 | disposition home or self-care (01) ==
LOC: PT 08:30
PROVIDERS: Family Provider Family Medicine; PCP Family Medicine; Visit Provider Family Medicine
DX: S39.012D Strain of muscle, fascia and tendon of lower back, subsequent encounter (principal)
CPT/HCPCS: 97110; 97140; 97161

== ENCOUNTER 2019-12-08 10:30 | Outpatient (RCR) | payer OTHER, SELFPAY ==
[2019-08-04 11:52] VITALS: BMI 24.3
--- NOTE | 2019-10-23 13:32 | HP.PTEVAL ---
Patient's Visit Information CARLOS NEGRON is a 43 year old F referred to Physical Therapy by SURINDER Nath with a diagnosis of R shoulder pain, RC sprain. Date of Evaluation: 10/23/19 Physical Therapist: Qasim Paredes, DPT, OCS, CSCS - Visit Plan Frequency: 3x /Week Duration: 4-6 Weeks Plan: 3x/week for 3-6 weeks for... 1. a/PROM to R shoulder,. 2. Gentle progression RC and scap strength/RC strength. 3. US to R subcap nonthermal until painfree at rest, TENS with ice as needed. 4. Resume rest of regular workout in gym as desired without R UE. - Subjective R shoulder pain after lifting butterflyes at home one week ago adn hurt right way and has hurt since non stop dull pain. R upper arm. 10. Worse with sleeping on R side, lateral raises adn hooking bra or reaching behind her. L shoulder is fine. Is L handed. Limits her on ADLS but less than if it was her left arm. MRI on the 11/01 at [facility]. 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 ice feels better - Pain R shoulder Pain Intensity (Out of 10): 4 Pain Intensity Range: 4, 9 - Objective R shoulder tender over subscap insertion moderately. Posture is forward head and elevated scap slightly B with some protraction. L shoulder adn UE AROM WFL and strength at 4+. R shoulder AROM elevation felxion full but slow, abduction to 80 comfortably and got the rest with pain and slow. IR and ER full but painful to IR. Elebow and wrist AROM WFL and without increased pain. R shoulder strength ext rotation 4, IR 3+ and painful, abd 3+ pain, flexion 4- slight pain. elbow 4+ without pain in flexiona dn ext, wrist 4+ without pain. reflexes 2/3 bi and tri. Sensation WNL to gross light touch in UE. + HK R, + neer, - drop arm, - ext rotation lag test, - sulcus, - apprehension. - Goals Goal 1:: comfortable at rest without movement and sleep without waking. Goal Time Frame: 2-4 Weeks Goal 2:: Full aROM without pain R shoulder Goal Time Frame: 4-6 Weeks Goal 3:: Patient start strengthening without increased pain. Goal Time Frame: 4-6 Weeks Goal 4:: quick Dash less than 15 Goal Time Frame: 4-6 Weeks Goal 5:: Pt feel 80% better overall with activity and workout. Goal Time Frame: 4-6 Weeks - Rehabilitation Potential Physical Therapy Diagnosis: R subscap sprain. Rehabilitation Potential: Fair - Anticipated Interventions Patient/Client Instruction: Educate patient on: Condition, Plan of Care For the Purpose of:: To decrease pain, To increase ROM, To improve muscle performance and motor function, To increase tolerance to activity/condition/position Therapeutic Exercise to Include: Strength training, Postural training, Flexibilty training, Passive ROM, Active ROM, Scapular Strength/Stabilization For the Purpose of:: To decrease pain, To improve nutrient delivery to tissue, To improve muscle performance and motor function, To increase tolerance to activity/condition/position, To improve ability of physical actions for home/community/work/leisure Manual Therapy Techniques to Include: Mobilization, Passive ROM, Soft tissue mobilization For the Purpose of:: To decrease pain TENS: Yes Cryotherapy (ice pack, ice massage): Yes Ultrasound (thermal/non thermal): Yes - nonthermal subscap For the Purpose of:: To decrease pain, To decrease swelling/inflammation Thank you for the opportunity to evaluate your patient. For Medicare and Medicare HMO plans, please review the plan of care and approve it. It will need to be FAXED BACK to us at [phone] for Medicare purposes. For Medicare only, by signing this I certify the plan of care. Please let me know if there are questions or concerns regarding this plan of care. Physician Signature: Date:
--- NOTE | 2019-11-13 11:11 | HP.PTREVAL ---
Rima Grey, CLINICAL DATA MANAGEMENT MANAGER-C, It has been my pleasure to treat CARLOS NEGRON over the last 9 visits for R shoulder pain, RC sprain. Please see the progress note below for an update on the physical therapy plan of care! Subjective: Has a tear and needs surgery if she wants to lift heavy. Avoiding bicep curls adn deadlifting, lateral pulldowns. If I don't use it I am OK. Lifting plates out of cupboard still hurts. Objective/Function: Pt surprised that she could deaadlift 135#, bicep curl 12.5# adn pulldown without hardly any pain today. AROM R shoulder is full but has painful arc in abduction that is the same as 3 weeks ago. Strength is 5/5 ext rotation 4- adn painful IR, 4+ biceps curl, 4+ riceps, 4 abd with pain and 4+ flexion without pain. OVERALL IMPROVED AND WILL VISIT DOCTOR NEXT SATURDAY FOR OPTIONS OF SURGERY OR CONTINUE PT TO STRENGTHEN AND PROGRESS TO TOLERANCE. Plan Plan: PT TO CALL AFTER DOCTOR VISIT TO [facility] TO STRENGTHEN TO TOLERANCE AND PROGRESS ACTIVITY OR D/C BASED ON RESULTS OF DOCTOR APPOINTMENT. IF CONTINUE, WILL PROGRESS RC AND SCAP STRENGTH ADN FUNCTIONAL STRENGTHENING EXERCISING TO TOLERANCE 2-3X/WEEK FOR 2-4 WEEKS. Goals Goal 1:: comfortable at rest without movement and sleep without waking. Goal Time Frame: 2-4 Weeks Goal Progress: Goal Met Goal 2:: Full aROM without pain R shoulder Goal Time Frame: 4-6 Weeks Goal Progress: NOT [id number] Goal 3:: Patient start strengthening without increased pain. Goal Time Frame: 4-6 Weeks Goal Progress: Goal Met Goal 4:: quick Dash less than 15 Goal Time Frame: 4-6 Weeks Goal Progress: Progressing Goal 5:: Pt feel 80% better overall with activity and workout. Goal Time Frame: 4-6 Weeks Goal Progress: Progressing Anticipated Interventions Patient/Client Instruction: Educate patient on: Condition, Plan of Care For the Purpose of:: To decrease pain, To increase ROM, To improve muscle performance and motor function, To increase tolerance to activity/condition/position Therapeutic Exercise to Include: Strength training, Postural training, Flexibilty training, Passive ROM, Active ROM, Scapular Strength/Stabilization For the Purpose of:: To decrease pain, To improve nutrient delivery to tissue, To improve muscle performance and motor function, To increase tolerance to activity/condition/position, To improve ability of physical actions for home/community/work/leisure Manual Therapy Techniques to Include: Mobilization, Passive ROM, Soft tissue mobilization For the Purpose of:: To decrease pain TENS: Yes Cryotherapy (ice pack, ice massage): Yes Ultrasound (thermal/non thermal): Yes - nonthermal subscap For the Purpose of:: To decrease pain, To decrease swelling/inflammation Please do not hesitate to contact me at [phone] by phone or if you have questions or concerns regarding this new plan of care! Sincerely, Qasim Paredes, DPT, OCS, CSCS
--- NOTE | 2019-12-08 11:02 | HP.PTREVAL ---
Rima Grey, LOST CHARGE CARD CLERK-C, It has been my pleasure to treat CARLOS NEGRON over the last 14 visits for R shoulder pain, RC sprain. Please see the progress note below for an update on the physical therapy plan of care! Subjective: Doing everything she needs to do except avoiding bencing, flyes and hard to get hand on bar for back squats. Objective/Function: Pt doing well but has some discomfort at end range of elevated IR adn DARNELL whcih is why I hsowed her the stretches. Full aROM except for IR slight deficits vs opposite side. 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 Plan Plan: f/u three weeks to check IR ROM, squat, bench, flye. Pt to do this instead of more frequent therapy or outright d/c. Willcontact me if problems or questions in the meantime. Goals Goal 1:: comfortable at rest without movement and sleep without waking. Goal Time Frame: 2-4 Weeks Goal Progress: Goal Met Goal 2:: Full aROM without pain R shoulder Goal Time Frame: 4-6 Weeks Goal Progress: Progressing Goal 3:: Patient start strengthening without increased pain. Goal Time Frame: 4-6 Weeks Goal Progress: Goal Met Goal 4:: quick Dash less than 15 Goal Time Frame: 4-6 Weeks Goal Progress: Progressing Goal 5:: Pt feel 80% better overall with activity and workout. Goal Time Frame: 4-6 Weeks Goal Progress: Progressing Anticipated Interventions Patient/Client Instruction: Educate patient on: Condition, Plan of Care For the Purpose of:: To decrease pain, To increase ROM, To improve muscle performance and motor function, To increase tolerance to activity/condition/position Therapeutic Exercise to Include: Strength training, Postural training, Flexibilty training, Passive ROM, Active ROM, Scapular Strength/Stabilization For the Purpose of:: To decrease pain, To improve nutrient delivery to tissue, To improve muscle performance and motor function, To increase tolerance to activity/condition/position, To improve ability of physical actions for home/community/work/leisure Manual Therapy Techniques to Include: Mobilization, Passive ROM, Soft tissue mobilization For the Purpose of:: To decrease pain TENS: Yes Cryotherapy (ice pack, ice massage): Yes Ultrasound (thermal/non thermal): Yes - nonthermal subscap For the Purpose of:: To decrease pain, To decrease swelling/inflammation Please do not hesitate to contact me at [phone] by phone or if you have questions or concerns regarding this new plan of care! Sincerely, Qasim Paredes, DPT, OCS, CSCS
--- NOTE | 2020-02-12 08:14 | HP.PT.NRP ---
CARLOS NEGRON was seen in my office for initial evaluation on 10/23/19. The following Plan of Care was established for this patient: Initial Frequency: 3x /Week Initial Duration: 4-6 Weeks Patient/Client Instruction: Educate patient on: Condition, Plan of Care For the Purpose of:: To decrease pain, To increase ROM, To improve muscle performance and motor function, To increase tolerance to activity/condition/position Therapeutic Exercise to Include: Strength training, Postural training, Flexibilty training, Passive ROM, Active ROM, Scapular Strength/Stabilization For the Purpose of:: To decrease pain, To improve nutrient delivery to tissue, To improve muscle performance and motor function, To increase tolerance to activity/condition/position, To improve ability of physical actions for home/community/work/leisure Manual Therapy Techniques to Include: Mobilization, Passive ROM, Soft tissue mobilization For the Purpose of:: To decrease pain TENS: Yes Cryotherapy (ice pack, ice massage): Yes Ultrasound (thermal/non thermal): Yes - nonthermal subscap For the Purpose of:: To decrease pain, To decrease swelling/inflammation This patient was last seen in our office 12/08/19. Pertinent comments regarding their Physical therapy will appear below: Pt seen 14 visits of rehab for RCT. She progressed to the point where she was functionally doing everything she needed to do and only avoiding certain workout movements appropriately. She was to continue her workout adn f/u three weeks later as needed. She neglected to schedule that visit. I have seen her in the gym working out and doing well. I will disocntinue her at this time. At this point I will be discontinuing this patient from physical therapy. I would be happy to see this patient again in the future if found appropriate by the physician. Thank you! Qasim Paredes, DPT, OCS, CSCS
== END 2019-12-08 19:00 ==
LOC: PT 10:30
PROVIDERS: PCP Family Medicine; Referring Provider Registered Nurse; Visit Provider Registered Nurse
DX: S43.421D Sprain of right rotator cuff capsule, subsequent encounter (principal)
CPT/HCPCS: 97014; 97035; 97110; 97140; 97161; 97164; 97530; G0283

== ENCOUNTER → 2020-02-03 | Outpatient (CLI) | payer OTHER, SELFPAY ==
[2020-02-03 14:20] VITALS: BMI 24.3
[2020-02-03 15:04] LABS: Absolute Lymphocyte Count 1.83 X10^3/uL (0.83-4.51); Basophil# 0.05 X10^3/uL; Basophil% 0.6 % (0-1); Eosinophil# 0.19 X10^3/uL; Eosinophils% 2.2 % (0-5); Hematocrit 45.1 % (37-47); Hemoglobin 14.8 g/dL (12.0-15.0); Lymphocyte # 1.83 X10^3/ul (4.0); Lymphocyte % 21.1 % (19-41); Mean Corp Hgb Conc 32.8 g/dL (32-36); Mean Corpuscular Hgb 32.8 pg (27.0-32.0); Mean Platelet Vol. 10.6 fl (6.2-12.0); Monocyte% 6.9 % (0-10); NRBC Flagged by Analyzer 0 % (0-5); Platelet Count 241 K/mm3 (150-450); RBC Distribution Width CV 14.2 % (11.6-14.6); RBC Distribution Width SD 51.9 fl (35.1-43.9); Red Blood Count 4.51 M/mm3 (4.2-5.4); White Blood Count 8.7 K/mm3 (4.4-11.0)
[2020-02-03 15:20] LABS: Thyroid Stim Hormone (TSH) 2.18 uIU/mL (0.358-3.74)
[2020-02-03 22:54] LABS: Xtra Tube EP Lab EXTRA TUBE
[2020-02-10 03:07] LABS: HPV Genotype 16, Aptima Negative (Negative)
[2020-02-10 09:03] LABS: HPV APTIMA, High Risk Positive (Negative); HPV Genotype 18,45 Aptima Negative (Negative)
== END | disposition home or self-care (01) ==
PROVIDERS: PCP Family Medicine; Referring Provider Nurse Practitioner Women's Health; Visit Provider Nurse Practitioner Women's Health
DX: N92.1 Excessive and frequent menstruation with irregular cycle (principal); Z13.29 Encounter for screening for other suspected endocrine disorder; Z12.4 Encounter for screening for malignant neoplasm of cervix
CPT/HCPCS: 36415; 84443; 85025; 87624; 88175; G0145

== ENCOUNTER → 2020-02-09 | Outpatient (CLI) | payer OTHER, SELFPAY ==
[2020-02-03 14:20] VITALS: BMI 24.3
--- NOTE | 2020-02-09 12:26 | US_ITS ---
STUDY: ULTRASOUND OF THE FEMALE PELVIS - COMPLETE REASON FOR EXAM: Female, 44 years old. MENORRHAGIA -- UNILATERAL OOPHRECTOMY LMP: 01/17/2020 TECHNIQUE: Transabdominal and Transvaginal TECHNICAL QUALITY: Adequate. COMPARISON: None. FINDINGS: The uterus is anteverted and is in a midline position. The uterus measures 9.4 cm x 5.6 cm x 5.2 cm. There are Nabothian cysts of the cervix. The endometrium measures 1.5 mm in thickness, and is hyperechoic. There is no demonstrated endometrial mass. 2 fibroids are seen. The largest measures 2.8 cm x 3 cm x 2.4 cm. I.U.D. - The patient does not have an I.U.D. The patient is status post right oophorectomy. The left ovary is visualized. The left ovary measures 2.7 cm x 2.7 cm x 1.4 cm. There is no left ovarian cyst or ovarian mass. There is no visualized left adnexal mass or complex lesion. There is normal arterial and normal venous vascularity. There is no fluid in the cul-de-sac. The pre void volume of the bladder was 1020 ml. Polycystic ovary disease: No. US/Pelvic (Non ) IMPRESSION: Fibroid uterus. Electronically Signed: Timbo Wagner, at 16:03 EDT , Service support ,
--- NOTE | 2020-02-09 12:26 | US_ITS ---
STUDY: ULTRASOUND OF THE FEMALE PELVIS - COMPLETE REASON FOR EXAM: Female, 44 years old. MENORRHAGIA -- UNILATERAL OOPHRECTOMY LMP: 01/17/2020 TECHNIQUE: Transabdominal and Transvaginal TECHNICAL QUALITY: Adequate. COMPARISON: None. FINDINGS: The uterus is anteverted and is in a midline position. The uterus measures 9.4 cm x 5.6 cm x 5.2 cm. There are Nabothian cysts of the cervix. The endometrium measures 1.5 mm in thickness, and is hyperechoic. There is no demonstrated endometrial mass. 2 fibroids are seen. The largest measures 2.8 cm x 3 cm x 2.4 cm. I.U.D. - The patient does not have an I.U.D. The patient is status post right oophorectomy. The left ovary is visualized. The left ovary measures 2.7 cm x 2.7 cm x 1.4 cm. There is no left ovarian cyst or ovarian mass. There is no visualized left adnexal mass or complex lesion. There is normal arterial and normal venous vascularity. There is no fluid in the cul-de-sac. The pre void volume of the bladder was 1020 ml. Polycystic ovary disease: No. US/Transvaginal Non- IMPRESSION: Fibroid uterus. Electronically Signed: Timbo Wagner, at 16:03 EDT , Service support ,
== END | disposition home or self-care (01) ==
LOC: US 12:26
PROVIDERS: PCP Family Medicine; Referring Provider Nurse Practitioner Women's Health; Visit Provider Nurse Practitioner Women's Health
DX: N92.1 Excessive and frequent menstruation with irregular cycle (principal)
CPT/HCPCS: 76830; 76856

== ENCOUNTER 2021-03-28 11:05 | Outpatient (RCR) | payer BC, SELFPAY ==
--- NOTE | 2021-05-04 09:52 | HP.PTEVAL ---
Patient's Visit Information CARLOS NEGRON is a 45 year old F referred to Physical Therapy by Monty Kelly PA-C with a diagnosis of L shoulder pain, L lateral epicondylitis. Date of Evaluation: 03/28/21 Physical Therapist: Amandeep Moore DPT - Visit Plan Frequency: 2x /Week Duration: 4 Weeks Plan: Start with wrist eccentrics, L shoulder RTC stability/strengthening. May use modalities to reduce symptoms at elbow and shoulder. DFM to L lateral epicondyle and wrist extensor stretching. - Subjective Pt. is here today for her initial evaluation with L shoulder strain and L lateral epicondylitis. Pt. reports having her L shoulder pain for a few months now without mech of injury. She reports having pain with lifting and sleeping. She reports that her arm wakes her up at night. She is now having pain in her lateral elbow at her lateral epicondyle. Pt. has not had any imaging at this point in time. She reports having L elbow pain for ~2-3 weeks now. She enjoys working out, 5-6 days per week. Pt. denies N/T and does not have any neck pain. Pt. is most concerned about her lack of sleeping. She is able to lift wts still, but has had to modify to avoid certain movements. She reports L shoulder pain at anterior lateral shoulder and deltoid region. L elbow pain at lateral epicondyle region. She has done some light scapular strengthening, but no other treatments for her shoulder or elbow at this point in time. She is hopeful to reduce symptoms in order to get back to all working out without limitations. - Pain L shoulder Pain Intensity (Out of 10): 4 Pain Intensity Range: 1, 7 L lateral epicondyle Pain Intensity (Out of 10): 3 Pain Intensity Range: 1, 6 - Objective POSTURE: Pt. has good posture in stance. Normal shoulder positioning. Pt. has normal cervical positioning. PALPATION: Pt. has tenderness at anterior shoulder near biceps tendon and supra spinatus insertions. Pt. has tenderness at her lateral epicondyle on L side. NEURO: Pt. has normal sensation throughout BUEs and normal DTR of B biceps and triceps. ROM: L shoulder AROM: full ROM, but has increased symptoms with end range flexion, functional ER and abd. Pt. has normal PROM of L shoulder. Pt. has normal L elbow ROM without increase in symptoms. MMT: L wrist and elbow 5/5 throughout, mild increase with wrist ext. L shoulder: flexion 5-/5 mild increase NW, abd 5-/5 mild increase NW, ER normal without increase in symptoms, IR 5/5 mild increase NW, ext 5/5 NE. - Special Tests L Shoulder Drop Sign - IS Test: Negative L Shoulder Empty Can - SS: Positive L Shoulder Belly Press - SupScap: Negative L Shoulder Neer - Impingement: Negative L Shoulder Alejandro Vince - Impingement: Negative L Shoulder Biceps Load Test - Labrum: Positive L Shoulder Speeds Test - Labrum/Biceps: Positive L Elbow Valgus Stress Test - MCL Instability: Negative L Elbow Varus Stress Stest - MCL Instability: Negative L Elbow Lat Epiconylitis - as named: Positive - Balance/Special Test Scores Quick DASH Score: 30.0000 - Goals Goal 1:: LTG: Pt. to be I with HEP. Goal Time Frame: 4-6 Weeks Goal 2:: STG: Pt. sleep without increase in symptoms. Goal Time Frame: 2-4 Weeks Goal 3:: LTG: pt. to have no pain with all work out exercises. Goal Time Frame: 4-6 Weeks Goal 4:: STG: pt. to have full pain free ROM of L shoulder and wrist. Goal Time Frame: 2-4 Weeks Goal 5:: LTG: PT. to have full strength of R shoulder and elbow without increase in symptoms. - Rehabilitation Potential Physical Therapy Diagnosis: Pt. bains signs and symptoms consistent with L shoulder pain, L lateral epicondylitis. Pt. has good ROM, but has marked pain with resistance of ER and flexion/abduction motions. Pt. would benefit from PT to increase RTC strength/stability and increase eccentrics of L wrist extensors. Rehabilitation Potential: Good - Anticipated Interventions Patient/Client Instruction: Educate patient on: Condition, Plan of Care, Risk Factors, Benefits of Fitness Program For the Purpose of:: To improve self management, To prevent re-injury, To improve ability to perform tasks related to life management, To improve tolerance to ADL's Therapeutic Exercise to Include: Strength training, Power training, Active ROM, Scapular Strength/Stabilization For the Purpose of:: To decrease pain, To increase ROM, To improve nutrient delivery to tissue, To increase oxygenation perfusion, To improve muscle performance and motor function, To improve ability to perform ADL's Manual Therapy Techniques to Include: Mobilization, Functional dry needling, Soft tissue mobilization For the Purpose of:: To decrease pain, To decrease swelling/inflammation, To improve nutrient delivery to tissue, To increase oxygenation perfusion, To improve muscle performance and motor function, To increase tolerance to activity/condition/position Thank you for the opportunity to evaluate your patient. For Medicare and Medicare HMO plans, please review the plan of care and approve it. It will need to be FAXED BACK to us at [phone] for Medicare purposes. For Medicare only, by signing this I certify the plan of care. Please let me know if there are questions or concerns regarding this plan of care. Physician Signature: Date:
--- NOTE | 2021-05-30 12:37 | HP.PT.NRP ---
CARLOS ENGRON was seen in my office for initial evaluation on 03/28/21. The following Plan of Care was established for this patient: Initial Frequency: 2x /Week Initial Duration: 4 Weeks Patient/Client Instruction: Educate patient on: Condition, Plan of Care, Risk Factors, Benefits of Fitness Program For the Purpose of:: To improve self management, To prevent re-injury, To improve ability to perform tasks related to life management, To improve tolerance to ADL's Therapeutic Exercise to Include: Strength training, Power training, Active ROM, Scapular Strength/Stabilization For the Purpose of:: To decrease pain, To increase ROM, To improve nutrient delivery to tissue, To increase oxygenation perfusion, To improve muscle performance and motor function, To improve ability to perform ADL's Manual Therapy Techniques to Include: Mobilization, Functional dry needling, Soft tissue mobilization For the Purpose of:: To decrease pain, To decrease swelling/inflammation, To improve nutrient delivery to tissue, To increase oxygenation perfusion, To improve muscle performance and motor function, To increase tolerance to activity/condition/position This patient was last seen in our office 03/28/21. Pertinent comments regarding their Physical therapy will appear below: Pt. was seen for her L shoulder RTC issue and lateral epicondylitis. She was given exercises and was to complete these exercises on her own and follow up with PT as needed. Pt. has not been seen in ~2 months and will be DC from PT at this point in time. At this point I will be discontinuing this patient from physical therapy. I would be happy to see this patient again in the future if found appropriate by the physician. Thank you! Amandeep Moore, JULIENT Balance/Gait/Functional tests - Balance/Special Test Scores Quick DASH Score: 30.0000
== END 2021-03-28 19:00 | disposition home or self-care (01) ==
LOC: PT 11:05
PROVIDERS: Referring Provider Physician Assistant; Visit Provider Physician Assistant
DX: S43.492D Other sprain of left shoulder joint, subsequent encounter (principal); X58.XXXD Exposure to other specified factors, subsequent encounter; M77.12 Lateral epicondylitis, left elbow
CPT/HCPCS: 97161

== ENCOUNTER 2021-07-27 15:00 | Outpatient (RCR) | payer SELFPAY ==
--- NOTE | 2021-05-30 12:35 | HP.PT.NRP ---
CARLOS NEGRON was seen in my office for initial evaluation on . The following Plan of Care was established for this patient: This patient was last seen in our office 03/17/21. Pertinent comments regarding their Physical therapy will appear below: Pt. was seen in PT for self pay DN. Pt. has not been seen in several months and will be DC from PT at this point in time. At this point I will be discontinuing this patient from physical therapy. I would be happy to see this patient again in the future if found appropriate by the physician. Thank you! Amandeep Moore, JULIENT
== END 2021-07-27 19:00 | disposition home or self-care (01) ==
LOC: PT 15:00
DX: R69 Illness, unspecified (principal)

== ENCOUNTER 2021-08-17 13:00 | Outpatient (RCR) | payer BC, SELFPAY ==
--- NOTE | 2021-08-21 08:26 | HP.PTEVAL_ITS ---
Patient's Visit Information CARLOS NEGRON is a 45 year old F referred to Physical Therapy by Dr. Patel Vera MD with a diagnosis of L incomplete RTC tear. Date of Evaluation: 08/17/21 Physical Therapist: Amandeep Moore DPT - Visit Plan Frequency: 2x /Week Duration: 4 Weeks Plan: Start with progressive scapular and RTC strengthening. Progress in load and complexity as tolerated. - Subjective Pt. is here today for her initial evaluation with diagnosis of L incomplete RTC tear. Pt. did have an MRI showing not any significant tearing. Pt. has been having increased pain for a few months now. She did have an injection which has helped a decent amount. She is now able to sleep without issues. She enjoys working out, 5-6 times per week with a large portion being lifting. She had had to limit her lifting secondary to pain. Pt. reports pain with lifting over head and out to the side. She reports pain occurs and radiating down arm into deltoid region. She continues to lift but, has had to modified her lifting routine. Pt. has tried some light RTC movements, but not much. Pt. denies N/T in either UE. Pt. is hopeful to get back to all activities without limitations. - Pain L anterior shoulder Pain Intensity (Out of 10): 1 Pain Intensity Range: 0, 3 - Objective POSTURE: Pt. has normal posture in sitting and standing. Normal head and shoulder posture. No marked winging noted. PALPATION: pt. has mild tenderness at anterior shoulder, but no clavicle pain or scapular pain noted. NEURO: Pt. has normal sensation in BUEs to light and sharp touch. Pt. has normal DTR of bilateral biceps and triceps. ROM: PT. has full ROM of B shoulders. She has slight pain at end range ER and IR motions (functionally). MMT: LUE: wrist 5/5 throughout; elbow 5/5 throughout; shoulder: flexion 5-/5, abd 4+/5, ER 4+/5, IR 5/5, ext 5/5. Shoulder ER at 90deg 3/5 mild increase NW. - Special Tests L Shoulder External Rotation Lag Test - RC Tear: Negative L Shoulder Lift Off Test - Subscapular Tear: Negative L Shoulder Drop Sign - IS Test: Negative L Shoulder Empty Can - SS: Positive L Shoulder Belly Press - SupScap: Negative L Shoulder Neer - Impingement: Negative L Shoulder Alejandor Vince - Impingement: Positive L Shoulder Biceps Load Test - Labrum: Negative L Shoulder Yeargasons - SLAP: Negative - Balance/Special Test Scores Quick DASH Score: 15.9075 - Goals Goal 1:: LTG: pt. to be I with HEP for RTC stability/strengthening. Goal Time Frame: 2-4 Weeks Goal 2:: STG: Pt. to sleep throughout the night without increase in symptoms. Goal Time Frame: 2 Weeks Goal 3:: LTG: Pt. to have increased RTC strength to 5/5 throughout in multiple ranges. Goal Time Frame: 4-6 Weeks Goal 4:: LTG: pt. to complete all gym related work out without increase in symptoms. Goal Time Frame: 4-6 Weeks Goal 5:: STG: Pt. to complete all ADLs without increase in symptoms without limitations. Goal Time Frame: 2 Weeks - Rehabilitation Potential Physical Therapy Diagnosis: Pt. has signs and symptoms consistent with L incomplete RTC tear with marked RTC weakness in comparison to large muscle groups. She would benefit from PT to work on RTC stability and strengthening exercises progressing in load and repetitions in order to get back to all recreational working out and lifting without limitations. Rehabilitation Potential: Excellent - Anticipated Interventions Patient/Client Instruction: Educate patient on: Condition, Plan of Care, Risk Factors, Benefits of Fitness Program For the Purpose of:: To improve health and function, To foster healthy habits, To improve decision making, To facilitate caregiver knowledge, To improve self management, To prevent re-injury, To improve ability to perform tasks related to life management Therapeutic Exercise to Include: Strength training, Power training, Body mechanics, Postural training, Flexibilty training, Scapular Strength/Stabilization For the Purpose of:: To decrease pain, To decrease swelling/inflammation, To increase ROM, To improve nutrient delivery to tissue, To increase oxygenation perfusion, To improve muscle performance and motor function, To improve performance and independence with ADL's, To decrease level of supervision to perform tasks Thank you for the opportunity to evaluate your patient. For Medicare and Medicare HMO plans, please review the plan of care and approve it. It will need to be FAXED BACK to us at [phone] for Medicare purposes. For Medicare only, by signing this I certify the plan of care. Please let me know if there are questions or concerns regarding this plan of care. Physician Signature: Date:
== END 2021-08-17 19:00 | disposition home or self-care (01) ==
LOC: PT 13:00
PROVIDERS: Referring Provider Orthopaedic Surgery; Visit Provider Orthopaedic Surgery
DX: M75.112 Incomplete rotator cuff tear or rupture of left shoulder, not specified as traumatic (principal)
CPT/HCPCS: 97161

== ENCOUNTER 2022-10-12 11:01 | Day surgery (SDC) | payer BC, SELFPAY ==
--- NOTE | 2022-09-26 14:59 | PCM.HP.BLA ---
History and Physical Date of Admission: 10/12/22 HPI: The patient is a 46 year old female presenting for pre-operative visit. She is scheduled for hysteroscopy with endometrial ablation, for metromenorrhagia on 10/12/22. Procedure discussed along with risks, benefits and complications. Other alternatives discussed for management. Consent form signed? Yes. ? ? PAST MEDICAL HISTORY PAST MEDICAL HISTORY Diagnosis Date ? Abnormal uterine bleeding ? ? Acute pain of left shoulder ? ? Dr. Vera-Ezequiel ? Allergic rhinitis, cause unspecified ? ? Cyst of left ovary ? ? BRANDON (generalized anxiety disorder) ? ? Herpes zoster without complication ? ? Recurrent. [facility] ? Herpes zoster without mention of complication ? ? face ? Lateral epicondylitis of left elbow ? ? Migraine without aura ? ? Other hemorrhoids ? ? Pulmonary embolism (HCC) ? ? after ACL repair ? Recurrent major depressive disorder, in full remission (HCC) ? ? Umbilical hernia ? ? ? PAST SURGICAL HISTORY PAST SURGICAL HISTORY Procedure Laterality Date ? BREAST AUGMENTATION WITH IMPLANT Bilateral 2019 ? BREAST AUGMENTATION WITH IMPLANT ? 2011 ? COLONOSCOPY ? 10/10/2021 ? repeat in 10 years ? COLONOSCOPY W/BIOPSY SINGLE/MULTIPLE ? 07/05/2010 ? Normal Colon ? EGD TRANSORAL BIOPSY SINGLE/MULTIPLE ? 07/05/2010 ? Gastritis ? EXTRACTION, ERUPTED TOOTH OR EXPOSED ROOT (ELEVATION AND/OR FORCEPS REMOVAL) ? 06/17/2004 ? PAST SURGICAL HISTORY OF ? ? ? TVT ? PAST SURGICAL HISTORY OF Left 2018 ? ACL repair ? REMOVAL OF OVARY(S) Right ? ? benign mass ? [facility] COSMETIC SURGERY ? CURRENT MEDICATIONS Current Outpatient Medications Medication Sig Dispense Refill ? norethindrone (AYGESTIN) 5 mg tablet Take 1 tablet by mouth as directed. 1 tablet 3 times daily until bleeding stops then twice daily for 2 days then 1 tablet daily for 2 days. 30 tablet 0 ? norethindrone acetate (AYGESTIN ORAL) Take by mouth. ? ? ? sertraline (ZOLOFT) 50 mg tablet Take 1 tablet by mouth once daily. 90 tablet 3 ? valACYclovir (VALTREX) 1 gram Take 2 tablets PO at the first sign of shingles, and then 2 more tabs in 12 hours. ? ? ? No current facility-administered medications for this visit. ? ? ALLERGIES: Adhesive Tape (Rosins) and Percocet [Oxycodone-Acetaminophen] ? PERSONAL HISTORY: SOCIAL HISTORY Social History ? Tobacco Use ? Smoking status: Never ? Smokeless tobacco: Never Vaping Use ? Vaping Use: Never used Substance Use Topics ? Alcohol use: Not Currently ? Drug use: No ? FAMILY HISTORY: FAMILY HISTORY FAMILY HISTORY Problem Relation Age of Onset ? Hypertension Mother ? ? Cancer Maternal Grandmother ? ? lung, smoker ? Breast Cancer Maternal Aunt ? ? ? REVIEW OF SYMPTOMS: GENERAL: denies fevers or chills ENDOCRINOLOGY: has not been on steroids Cardiology : denies palpitations or chest pain Respiratory: denies SOB or cough Hematology: denies history of prolonged bleeding or easy bruising or VTE Allergy: Denies history of personal or family history of allergy to anesthesia ? PHYSICAL EXAMINATION: ? VITALS: Last menstrual period 09/03/2022. ? GENERAL: The patient is well nourished, well hydrated in no acute distress. , The patient is oriented to time, place, and person. NECK: Supple. No lynphadenopathy, normal thyroid, no thyromegaly. LUNGS: Clear to auscultation bilaterally. no wheezes, rhonchi or rales HEART: Regular rate and rhythm, Normal heart sounds, and No murmurs or gallops ? IMPRESSION: metromenrrhagia ? PLAN: The risks/benefits/alternatives and personal involved for the planned hysteroscopy with endometrial ablation were reviewed with the patient. Her questions were answered to her satisfaction and she desires to proceed. Consent was signed. I reviewed with her postop instructions and expectations. ? ? I have reviewed and updated past medical and surgical history, medications and allergies Assessment & Plan Assessment/Plan (1) Menorrhagia: (2) Metrorrhagia:
[2022-10-08 10:34] LABS: Hematocrit 45.3 % (37-47); Hemoglobin 14.6 g/dL (12.0-15.0); Mean Corp Hgb Conc 32.2 g/dL (32-36); Mean Corpuscular Hgb 32.7 pg (27.0-32.0); Mean Corpuscular Volume 101.3 fL (81-99); Mean Platelet Vol. 11.7 fl (6.2-12.0); Platelet Count 260 K/mm3 (150-450); RBC Distribution Width CV 14.6 % (11.6-14.6); RBC Distribution Width SD 55.5 fl (35.1-43.9); Red Blood Count 4.47 M/mm3 (4.2-5.4); White Blood Count 5.2 K/mm3 (4.4-11.0)
[2022-10-12 11:34] VITALS: BP 107/77; PULSE 73; RESP 18; TEMP 36.7; O2SAT 99; BMI 24.1
[2022-10-12 11:43] LABS: Internal QC Validated? YES +Cl - CLEAR BKGD; Pregnancy, Urine Negative Negative
[2022-10-12] MEDS: Acetaminophen 500 MG Tablet 1000 MG PO (11:43)
[2022-10-12] MEDS: Lactated Ringers 1,000 ML 15 ML IV (11:43)
[2022-10-12] MEDS: Ketorolac 30 MG/ML Syringe IV (11:44)
--- NOTE | 2022-10-12 13:14 | DCINST_ITS ---
Discharge Instructions Diet Discharge Diet: No restrictions Activity Discharge Activity: [address] (10/13) Return to work on:: 10/15/22 May resume sexual activity in: 2 weeks Lifting Restrictions: none Dressing / Incision Call your doctor if your incision/area has: Sudden Increased Bleeding and Foul Smelling Discharge Call your doctor if you observe: Fever of 101 or Higher and Using more than 1 pad per hour (for 2 hrs in a row) Follow Up Care Please Follow Up With: Anai Mendoza MD When: 2-4 weeks only as needed. Call [phone] to make an appointment or with any concerns or contact us by [employer]. Test Results: Test results from this visit will be discussed in further detail at your follow- up appointment, if applicable. Discharge Plan Admission Primary Reason for Your Visit: Hysteroscopy with Jessica endometrial ablation Attending Provider: Anai Mendoza Primary Care Provider: Woody Winter Discharge Orders/Prescriptions Prescriptions: No Action acetaminophen [Tylenol] 325 mg tablet 650 mg PO ONCE PRN (Reason: Pain) valacyclovir 1 gram tablet 1 mg PO PRN PRN (Reason: SHINGLES OUTBREAK) Label Comments: Only if she has a shingles outbreak sertraline 50 mg tablet 50 mg PO DAILY Label Comments: TAKE 1 TABLET BY MOUTH EVERY DAY Referrals / Follow Up: Woody Winter MD [Primary Care Provider] - Disposition Disposition (needs filled in before D/C Order can be placed): Home, Self Care
--- NOTE | 2022-10-12 13:15 | OP.PCM_ITS ---
Problems Associated Problem List Diagnoses (1) Menorrhagia: (2) Metrorrhagia: Report of Operation Date of Procedure: 10/12/22 Pre-Operative Diagnosis: menorrhagia, metrorrhagia Post-Operative Diagnosis: Same Surgery/Procedure Performed:: Hysteroscopy with Jessica endometrial ablation Description of Surgical Findings:: normal cervix, vagina, uterine cavity Surgeon: Anai Mendoza caster investment casting: None Type of Anesthesia: MAC/Supplemental/Local Anesthesiologist: Derrick Gastelum Special Medications: none Specimen's removed: none Drains: none Estimated Blood Loss (mL): 10 Fluids Replaced: 1000 cc Description of Procedure: The patient was taken to the OR where she was prepped and draped in dorsal lithotomy position. The weighted speculum was placed in the vagina and the anterior lip of the cervix was grasped with a single-tooth tenaculum. A paracervical block was administered with 1% lidocaine with 1-100,000 epinephrine solution. The cervix was dilated serially with Hegar dilators. The 5mm hysteroscope was placed into the uterine cavity and the above findings were noted. Bilateral tubal ostia were identified. The uterus sounded to 8.5cm and the cervical length was 4 cm. The endometrial cavity length was 4.5cm. The hysteroscope was removed. The Jessica device was set to 4.5cm. The instrument was then seated into the endometrial cavity and the indicator was in the green. The cervical seal balloon was inflated and the uterine integrity test was passed. The ablation procedure was initiated and completed without interruption. During the ablation procedure gentle traction was held on the tenaculum and the Jessica device was held up against the uterine fundus. When the ablation procedure was completed the Jessica was removed. The tenaculum was removed and the tenaculum site was noted to be hemostatic. All sponge and needle counts were correct. A vaginal sweep was performed by me. The patient was awakened and taken to the recovery room in stable condition. Hysteroscopic ins: 1350cc normal saline Hysteroscopic outs:1200cc Findings: Endometrial cavity: Normal, no fibroids or polyps noted Cervix: Normal Vagina: Normal Grafts/Implants Used: none Procedure Start Time: 13:19 Procedure Stop Time: 13:33 Complications none Admit VTE Documentation VTE Present on Admission: No VTE Mechan Device Prophylaxis: SCD's VTE Pharm Prophylaxis ordered?: No Reason prophylaxis not ordered:: Drug Declined by Patient
[2022-10-12] MEDS: Lidocaine 1%/Epi 1:200 (30ml) 30 ML AMPUL (13:19)
[2022-10-12 13:43] VITALS: BP 107/77; BP 120/72; PULSE 84; RESP 18; TEMP 36.2; O2SAT 100
[2022-10-12 13:45] VITALS: BP 107/77; BP 111/70; PULSE 84; RESP 18; O2SAT 99
[2022-10-12 13:50] VITALS: BP 107/77; BP 111/76; PULSE 72; RESP 18; O2SAT 96
[2022-10-12 13:55] VITALS: BP 107/77; BP 115/77; PULSE 73; RESP 18; TEMP 36.1; O2SAT 97
[2022-10-12 14:20] VITALS: BP 107/77
== END 2022-10-12 14:25 | disposition home or self-care (01) ==
LOC: SDC 11:04 → AC 11:06
PROVIDERS: PCP Family Medicine; Referring Provider Obstetrics & Gynecology; Visit Provider Obstetrics & Gynecology
PROC: 0U5B8ZZ Destruction of Endometrium, Via Natural or Artificial Opening Endoscopic (ICD-10-PCS; CPT 58558; principal; 2022-10-12 13:45)
DX: N92.0 Excessive and frequent menstruation with regular cycle (principal); F41.1 Generalized anxiety disorder; Z79.899 Other long term (current) drug therapy
CPT/HCPCS: 58563; 00952; 36415; 81025; 85027; J7120; J2405

== ENCOUNTER → 2023-04-30 | Outpatient (CLI) | payer BC, SELFPAY ==
--- NOTE | 2023-04-30 10:00 | RAD_ITS ---
CLINICAL HISTORY: Female, 47 years old. Left shoulder pain. PROCEDURE: ARTHROGRAM - LEFT SHOULDER CONSENT: The procedure as well as the benefits and possible complications including infection and bleeding or explained to the patient. Informed consent was obtained. FLUOROSCOPY TIME (if supplied): (45 seconds) minutes/seconds. 5.1 mGy Injection Information: 10 cc of dilute MRI contrast. Number of images obtained: 4 TECHNIQUE: (All elements of maximal sterile barrier technique followed, including US elements as applicable) The patient was in the supine position. The overlying skin was prepped and draped in usual sterile fashion. Following local anesthetic application and under direct fluoroscopic guidance, a 22-gauge spinal needle was placed into the shoulder joint. 2 cc of Isovue-300 was injected for confirmation. Following this, 10 cc of dilute MRI contrast was injected. The patient tolerated the procedure well. MRI will follow. RAD/Arthrogram Shoulder w/ MRI IMPRESSION: Successful left shoulder arthrogram for MRI examination. Electronically Signed: Timbo Wagner MD at 11:05 EST ,
[2023-04-30] MEDS: Lidocaine 2% (5ml sdv) 5 ML VIAL.MPF INFILT (10:07)
[2023-04-30] MEDS: Iopamidol 10 ML in Syringe 1 EACH 600 ML INTRAARTIC (10:08)
[2023-04-30] MEDS: Gadoterate Meglumine Diluted 10 ML, Iopamidol 5 ML, Lidocaine 1% (20 ml mdv) 5 ML, Epin... INTRAARTIC (10:08)
--- NOTE | 2023-04-30 10:09 | MRI_ITS ---
STUDY: MRI ARTHROGRAM OF THE LEFT SHOULDER REASON FOR EXAM: Female, 47 years old. Strain of muscle. Pain in left shoulder. TECHNIQUE: 10 cc of dilute Clariscan contrast was injected into the left glenohumeral joint. MRI was obtained in all 3 orthogonal planes. COMPARISON: Left shoulder radiographs dated 04/20/2021. FINDINGS: There is mild supraspinatus and infraspinatus tendinosis with mild articular surface fraying of the distal infraspinatus tendon (sagittal T2 series 7 images 13-14). There is no full-thickness rotator cuff tear. Intact subscapularis tendon. Normal teres minor tendon. Normal supraspinatus muscle. Normal infraspinatus muscle. Normal subscapularis muscle. Normal teres minor muscle. Normal glenohumeral articulation. Normal humeral head and visualized proximal humerus. Normal biceps labral complex. Normal intracapsular long biceps tendon. Normal labrum. Normal capsulo-ligamentous complex. Normal rotator interval. There is mild acromioclavicular arthrosis. There is a Type II morphology (curved), with a neutral orientation. There is trace subacromial-subdeltoid bursal fluid. Normal visualized coracohumeral and coracoacromial ligaments. Normal quadrilateral space. Normal axillary space. Normal deltoid muscle. Normal trapezius muscle. MRI/Upper Ext Jt W/Contrast IMPRESSION: Mild supraspinatus and infraspinatus tendinosis with mild articular surface fraying of the distal infraspinatus tendon. No full-thickness rotator cuff tear. Mild acromioclavicular arthrosis. Minimal subacromial-subdeltoid bursitis. Electronically Signed: Garett Loyola MD at 12:35 EST ,
== END | disposition home or self-care (01) ==
LOC: MRI 09:33
PROVIDERS: PCP Family Medicine; Referring Provider Student in an Organized Health Care Education/Training Program; Visit Provider Student in an Organized Health Care Education/Training Program
DX: S46.112D Strain of muscle, fascia and tendon of long head of biceps, left arm, subsequent encounter (principal); S46.012D Strain of muscle(s) and tendon(s) of the rotator cuff of left shoulder, subsequent encounter; M25.512 Pain in left shoulder; X58.XXXD Exposure to other specified factors, subsequent encounter
CPT/HCPCS: 23350; 73222; 77002; Q9967

== ENCOUNTER → 2023-05-23 | Outpatient (CLI) | payer BC, SELFPAY ==
[2023-05-23 12:20] LABS: Absolute Neutrophil Count 3.7 X10^3/uL (2.0-7.7); Basophil# 0.04 X10^3/uL; Basophil% 0.6 % (0-1); Eosinophil# 0.14 X10^3/uL; Eosinophils% 2.2 % (0-5); Hematocrit 46.5 % (37-47); Hemoglobin 15.1 g/dL (12.0-15.0); Mean Corp Hgb Conc 32.5 g/dL (32-36); Mean Corpuscular Hgb 32.1 pg (27.0-32.0); Mean Corpuscular Volume 98.7 fL (81-99); Mean Platelet Vol. 10.9 fl (6.2-12.0); Monocyte# 0.57 X10^3/uL; Monocyte% 8.8 % (0-10); NRBC Flagged by Analyzer 0 % (0-5); Neutrophil # 3.69 X10^3/uL (2.7-7.7); Neutrophil % 57.2 % (47-70); Platelet Count 259 K/mm3 (150-450); RBC Distribution Width CV 14.5 % (11.6-14.6); RBC Distribution Width SD 52.9 fl (35.1-43.9); Red Blood Count 4.71 M/mm3 (4.2-5.4); White Blood Count 6.5 K/mm3 (4.4-11.0)
[2023-05-23 12:54] LABS: Anion Gap 6 (5-15); BUN 14 mg/dL (7-18); BUN/Creat Ratio 15.3 RATIO (10-20); Calcium,Total 9.1 mg/dL (8.5-10.1); Chloride 102 mmol/L (98-107); Cholesterol 277 mg/dL (200); Creatinine, Serum 0.92 mg/dL (0.55-1.02); EST Glomerular Filtration Rate 69 mL/min (>60); Est Glom Filt Rate - Afr Amer 84 mL/min (>60); Glucose 83 mg/dL (74-106); High Density Lipoprotein 99 mg/dL; Sodium Level 136 mmol/L (136-145); Triglycerides 96 mg/dL; Very Low Density Lipoprotein 19 mg/dL (5-40)
== END | disposition home or self-care (01) ==
LOC: PSN 11:07 → LAB 11:08
PROVIDERS: PCP Family Medicine; Referring Provider Student in an Organized Health Care Education/Training Program; Visit Provider Student in an Organized Health Care Education/Training Program
DX: Z01.818 Encounter for other preprocedural examination (principal); Z01.810 Encounter for preprocedural cardiovascular examination; Z13.220 Encounter for screening for lipoid disorders
CPT/HCPCS: 36415; 80048; 80061; 85025; 93005

== ENCOUNTER → 2024-10-28 | Outpatient (CLI) | payer BC, SELFPAY ==
[2024-10-28 16:47] LABS: Absolute Lymphocyte Count 2.24 X10^3/uL (0.83-4.51); Absolute Neutrophil Count 5.7 X10^3/uL (2.0-7.7); Basophil# 0.03 X10^3/uL; Basophil% 0.3 % (0-1); Eosinophil# 0.11 X10^3/uL; Eosinophils% 1.3 % (0-5); Hematocrit 45.6 % (37-47); Hemoglobin 15.5 g/dL (12.0-15.0); Lymphocyte # 2.24 X10^3/ul (0.83-4.51); Lymphocyte % 25.6 % (19-41); Mean Corpuscular Hgb 33.4 pg (27.0-32.0); Mean Corpuscular Volume 98.3 fL (81-99); Mean Platelet Vol. 11.1 fl (6.2-12.0); Monocyte# 0.62 X10^3/uL; Monocyte% 7.1 % (0-10); NRBC Flagged by Analyzer 0 % (0-5); Neutrophil # 5.72 X10^3/uL (2.7-7.7); Neutrophil % 65.5 % (47-70); Platelet Count 256 K/mm3 (150-450); RBC Distribution Width CV 12.7 % (11.6-14.6); RBC Distribution Width SD 45.7 fl (35.1-43.9); Red Blood Count 4.64 M/mm3 (4.2-5.4); White Blood Count 8.7 K/mm3 (4.4-11.0)
[2024-10-28 18:53] LABS: ALB/GLOB Ratio 1.5 RATIO (0.9-2.4); AST(SGOT) 21 U/L (<=31); Alanine Aminotransfer ALT/SGPT 15 U/L (<=34); Albumin, Serum 4.6 g/dL (3.5-5.0); Alkaline Phosphatase 58 U/L (35-104); Anion Gap 12 (5-15); BUN 12 mg/dL (4-19); BUN/Creat Ratio 13.7 RATIO (10-20); Calcium,Total 9.7 mg/dL (7.6-11.0); Carbon Dioxide 23.7 mmol/L (21.0-32.0); Chloride 101 mmol/L (98-108); Cholesterol 265 mg/dL (<=200); Creatinine, Serum 0.87 mg/dL (0.70-1.20); EST Glomerular Filtration Rate 81 (>60); Follicle Stimulating Hormone 16.2 mIU/mL; Globulin 3.2 g/dL (2.2-4.2); Glucose 87 mg/dL (70-99); High Density Lipoprotein 75 mg/dL; Low Density Lipoprotein Calc. 170 mg/dL; Luteinizing Hormone 74.1 mIU/mL; Protein, Total 7.7 g/dL (5.9-8.4); Sodium Level 137 mmol/L (133-145); Total Bilirubin 0.33 mg/dL (0.00-1.30); Triglycerides 97 mg/dL; Very Low Density Lipoprotein 19 mg/dL (5-40); Vitamin B12 860 pg/mL (180-914); Vitamin D,25 Hydroxy 54.1 ng/mL (30-100); cholesterol:hdl ratio screen 3.53
[2024-10-28 19:27] LABS: Hemoglobin A1c 5.3 % (<=5.6)
[2024-10-30 04:07] LABS: PROGESTERONE 1.4 ng/mL (.)
== END | disposition home or self-care (01) ==
LOC: VSLAB 16:11
PROVIDERS: PCP Nurse Practitioner Family; Visit Provider Nurse Practitioner Family
DX: Z13.220 Encounter for screening for lipoid disorders (principal); Z13.1 Encounter for screening for diabetes mellitus; G43.009 Migraine without aura, not intractable, without status migrainosus; E56.9 Vitamin deficiency, unspecified; R53.83 Other fatigue
CPT/HCPCS: 36415; 80053; 80061; 82306; 82607; 82670; 83001; 83002; 83036; 84144; 84443; 85025

== ENCOUNTER → 2024-10-30 | Outpatient (CLI) | payer BC, SELFPAY | END | disposition home or self-care (01) | PROVIDERS: PCP Nurse Practitioner Family; Referring Provider Nurse Practitioner Family; Visit Provider Nurse Practitioner Family | DX: R53.83 Other fatigue (principal) | CPT/HCPCS: 36415; 84402; 84403 ==

== ENCOUNTER 2025-01-22 08:57 | Day surgery (SDC) | payer BC, SELFPAY ==
[2025-01-22] VITALS (7 sets, daily range): BP systolic 92–113; BP diastolic 65–73; PULSE 63–99; RESP 12–16; TEMP 36.2–36.3; O2SAT 98–100; BMI 22.7
[2025-01-22] MEDS: Lactated Ringers 1,000 ML 15 ML IV (09:15)
[2025-01-22 09:29] LABS: Internal QC Validated? YES +Cl - CLEAR BKGD; Pregnancy, Urine Negative Negative; Record Kit Lot#,Urine Preg 0000962302
--- NOTE | 2025-01-22 09:39 | PCM.PRE.AN2 ---
ASA Classification* ASA Classification ASA Classification: 2 Assessment & Plan Anesthesia* Anesthesia Assessment Anesthesia Assessment: Discussed sedation and/or anesthesia options, risks, benefits, and alternatives with patient/parents/legal guardian/POA. Questions invited. The patient/parents/legal guardian/POA seems to understand and agrees to proceed with anesthesia plan. Reviewed the physical assessment, medical history, allergy history and patient home medications list prior to surgery/procedure/anesthetic and documented any changes. Performed airway and anesthesia risk assessments. Anesthesia Type Anesthesia Type: MAC History Source History Obtained from:: Patient and Chart Anesthesia Focused Assessment* Temperature: 97.4 F Pulse Rate: 71 Blood Pressure: 113/73 Respiratory Rate: 12 Pulse Ox: 98 Oxygen Delivery Method: Room Air Airway Assessment Mouth opens: >3 cm Mallampati Score: I Teeth Condition: Intact Neck Range of motion (ROM): Full ROM Labs Anesthesia Preop lab: CBC WBC 8.7 K/mm3 (4.4-11.0) 10/28/24 16:12 10/28/24 RBC 4.64 M/mm3 (4.2-5.4) 10/28/24 16:12 10/28/24 Hgb 15.5 g/dL (12.0-15.0) H 10/28/24 16:12 10/28/24 Hct 45.6 % (37-47) 10/28/24 16:12 10/28/24 Plt Count 256 K/mm3 (150-450) 10/28/24 16:12 10/28/24 CHEMISTRY Potassium 4.0 mmol/L (3.3-5.1) 10/28/24 16:12 10/28/24 Sodium 137 mmol/L (133-145) 10/28/24 16:12 10/28/24 BUN 12 mg/dL (4-19) 10/28/24 16:12 10/28/24 Creatinine 0.87 mg/dL (0.70-1.20) 10/28/24 16:12 10/28/24 Glucose 87 mg/dL (70-99) 10/28/24 16:12 10/28/24 TSH 1.930 uIU/mL (0.300-4.200) 10/28/24 16:12 10/28/24 COAG PT 14.3 SECONDS (11.7-14.9) 06/04/17 03:50 06/04/17 Urine Test Negative Negative 01/22/25 09:05 01/22/25 Tst Clinic Negative 04/22/19 09:09 04/22/19 Pre-Assessment Diagnosis/Proposed Procedure Planned Operative Procedure(s): EGD Anesthesia History 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 When Was Last Pacemaker Check QUESTION #4 FULL TEXT: You/Your Family Experience fever (hyperthermia) with Anesthesia Last Oral Intake Last Oral intake: Last Oral Intake NPO since 08:10 01/22/25 09:12 Meds taken in AM with sips of Yes 01/22/25 09:12 water? 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 Female Yes 01/20/25 12:02 HX of Motion Sickness No 01/20/25 12:02 HX of N/V After Surgery No 01/20/25 12:02 Non-Smoker Yes 01/20/25 12:02 Duration of Surgery greater No 01/20/25 12:02 than 60 minutes Number of Risk Factors 2 01/20/25 12:02 PONV Score Moderate Risk 01/20/25 12:02 Height & Weight Height & Weight: Anesthesia: Height & Weight Height 5 ft 6 in 01/22/25 09:12 Weight: 64 kg 01/22/25 09:12 Body Mass Index (BMI) 22.7 01/22/25 09:12 Respiratory Assessment Respiratory Assessment - gas meter mechanic: Respiratory Tract Infection Hx - gas meter mechanic Hx Respiratory Tract Infection No 01/20/25 12:02 STOP Sleep Apnea STOP Sleep Apnea - gas meter mechanic: STOP Sleep Apnea - gas meter mechanic Hx Hypertension No 01/20/25 12:02 Hx Sleep Apnea No 01/20/25 12:02 CPAP BIPAP Do you snore loudly (louder No 01/20/25 12:02 than talking or can be heard Do you often feel tired/ No 01/20/25 12:02 fatigued/ sleepy during daytime? Has anyone observed you stop No 01/20/25 12:02 breathing during sleep? STOP Results Negative 01/20/25 12:02 QUESTION #5 FULL TEXT : Do you snore loudly (louder than talking or can be heard through closed doors)? 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 Specify any problems Hx of Preganancy in last 3 No 01/20/25 12:02 Months Nurse Filling Out Transfusion [facility] 01/20/25 12:02 & Questions: Date: 01/20/25 01/20/25 12:02 Time: 12:07 01/20/25 12:02 Patient unable to answer at this time (ie. confused, unrespo /Reproduction History /Reproductive History - gas meter mechanic: /Reproductive Hx- gas meter mechanic Hx Now No 01/20/25 12:02 Gestational Age (in weeks): EDC: Hx Hx Para Hx Section SAB No 01/20/25 12:02 Active Medications Active Medications: Current Medications Generic Name Dose Route Start Last Admin Trade Name Freq PRN Reason Stop Dose Admin Lactated Ringer's 1,000 mls @ 15 mls/hr 01/22/25 09:00 01/22/25 09:15 IV 15 mls/hr .Q48H EVA Administration PFSH Medical History Heartburn History of shingles Pulmonary embolism DVT (deep venous thrombosis) Wears glasses Anxiety Non-smoker Cardiology follow-up encounter Irritant dermatitis Impingement syndrome, shoulder, left Left shoulder pain HPV test positive Menorrhagia with irregular cycle Neck pain Migraines Hemorrhoids DVT (deep venous thrombosis) Home Medications ?Medication ?Instructions ?Recorded ?Last Taken ?Type acetaminophen 325 mg tablet 650 mg PO ONCE PRN Pain 04/20/21 01/21/25 History (Tylenol) sertraline 50 mg tablet 50 mg PO DAILY 10/05/22 01/21/25 History valacyclovir 1 gram tablet 1 mg PO PRN PRN SHINGLES OUTBREAK 10/05/22 01/21/25 History acetylcarnitine 500 mg capsule 500 mg PO QDAY 12/21/24 01/21/25 History atogepant 60 mg tablet (Qulipta) 60 mg PO QDAY 12/21/24 01/22/25 History caffeine pill 200 mg PO QDAY 12/21/24 01/21/25 History natural accelerator 1 tab PO BID 12/21/24 01/21/25 History omeprazole 40 mg capsule,delayed 40 mg PO QDAY 12/21/24 01/22/25 History release ubrogepant 100 mg tablet (Ubrelvy) 100 mg PO ONCE 12/21/24 01/08/25 History Allergy/AdvReac Type Severity Reaction Status Date / Time adhesive tape Allergy Rash Verified 01/22/25 09:11 oxycodone HCl (From Percocet) Allergy Itching Verified 01/22/25 09:11 Surgical History History of surgery History of abdominoplasty History of umbilical hernia repair History of breast augmentation History of repair of anterior cruciate ligament of left knee H/O oophorectomy S/P ACL repair Social History household members: spouse number of children: 3 current occupational status: employed 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
--- OUTSIDE RECORDS SUMMARY | 2025-01-22 09:45 | XMS RPT_ITS | CCD ---
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 Name Role Phone Tizzano, David P Unavailable Unavailable Tizzano, David P Unavailable Unavailable No Doctor Assigned, Nodr Unavailable Unavail able No Doctor Assigned, Nodr Unavailable Unavail able Tizzano, David P Unavailable Unavailable Tizzano, David P Unavailable Unavailable Tizzano, David P Unavailable Unavailable No Doctor Assigned, Nodr Unavailable Unavail able Tizzano, David P Unavailable Unavailable Tizzano, David P Unavailable Unavailable No Doctor Assigned, Nodr Unavailable Unavail able Tizzano, David P Unavailable Unavailable Tizzano, David P Unavailable Unavailable No Doctor Assigned, Nodr Unavailable Unavail able Tizzano, David P Unavailable Unavailable No Doctor Assigned, Nodr Unavailable Unavail able Tizzano, David P Unavailable Unavailable Tizzano, David P Unavailable Unavailable No Doctor Assigned, Nodr Unavailable Unavail able Tizzano, David P Unavailable Unavailable No Doctor Assigned, Nodr Unavailable Unavail able Tizzano, David P Unavailable Unavailable Tizzano, David P Unavailable Unavailable Tizzano, David P Unavailable Unavailable Kyle Young Unavailable Unavailable Tizzano, David P Unavailable Unavailable Tizzano, David P Unavailable Unavailable No Doctor Assigned, Nodr Unavailable Unavail able Tizzano, David P Unavailable Unavailable Tizzano, David P Unavailable Unavailable No Doctor Assigned, Nodr Unavailable Unavail able Ganesh Winter MD Primary Care Provider Ganesh Winter MD Primary Care Provider Care Physician, No Primary Primary Care Provider Unavailable Care Physician, No Primary Referring Provider Un available FRANK Garcia Attending Provider Ganesh Winter MD Primary Care Provider Ganesh Winter MD Primary Care Provider Kyle Young MD Primary Care Provider Jordan RUIZ MD, Lew Marshall Primary Care Provider Evelia vailable Jordan RUIZ MD, Lew Marshall Primary Care Provider Evelia vailable RINA CAO Attending Unavailable RINA CAO Admitting Unavailable Ganesh Winter MD Primary Care Provider Podlogar ROVER TENDER.CPC CODER, Indu Unavailable Knoble ROVER TENDER.CPC CODER, Sravani Unavailable Knoble ROVER TENDER.CPC CODER, Sravani Unavailable GANESH WINTER Primary Care Unavailable ROGER HORN Attending Unavailable SERA, GANESH Primary Care Unavailable GANESH WINTER Primary Care Unavailable Maury BLENDING OPERATOR-C, Yashira Primary Care Provider Maury BLENDING OPERATOR-C, Yashira Attending Provider Maury BLENDING OPERATOR-C, Yashira Referring Provider Maury VSC, Yashira Primary Care Unavailabl David Ruffin Attending Unavailable Maury VSC, Yashira Primary Care Unavailabl e Maury VSC, Yashira Attending Unavailabl e Maury VSC, Yashira Primary Care Unavailabl e Maury VSC, Yashira Attending Unavailabl e Maury VSC, Yashira Referring Unavailabl e David Keys Attending Unavailable Maury VSC, Yashira Primary Care Unavailabl e Allergies Allergy Classification Reported Allergen(s) Allergy Type Date of Onset Reaction(s) Facility Acetaminophen / oxyCODONE (1 source) Acetaminophen / oxyCODONE Drug Allergy 5 Itching [facility] Adhesive Tape (1 source) Adhesive Tape Substance Allergy 6 Rash [facility] Work Phone: (1 source) Adhesive Tape; Translations: [Tape] Propensity to adverse reactions (disorder) [facility] Rep[facility] (1 source) No Known Medication Allergies; Translations: [No Known Medication Allergies] Propensity to adverse reactions to drug (disorder) [facility] (1 source) No Known Allergies; Translations: [No Known Allergies] Propensity to adverse reactions to drug (disorder) [facility] (20 sources) Acetaminophen / oxyCODONE; Translations: [OXYCODONE-ACETAM INOPHEN] Drug Allergy 5 Itching [facility] (20 sources) Adhesive Tape; Translations: [ADHESIVE TAPE (ROSINS)] Propensity to adverse reactions 6 Rash [facility] Work Phone: (6 sources) Adhesive Tape; Translations: [adhesive tape] Allergy to substance 0 Rash [facility] (6 sources) oxyCODONE; Translations: [oxycodone HCl] Drug Allergy 0 Itching [facility] Medications Current Medications Medication Drug Class(es) Dates Sig (Normalized) Sig (Original) acetaminophen 325 mg oral tablet (5 sources) Start: 04-20-2021 take 2 tablets by mouth once as needed for pain Acetaminophen (Tylenol) 325 mg tablet Active 650 mg PO ONCE as needed for Pain April 20, 2021 12:00am amoxicillin 875 mg oral tablet (2 sources) Penicillin-class Antibacterial Start: 12-07-2023 End: 12-14-2023 take 1 tablet by mouth twice daily amoxicillin (AMOXIL) 875 mg tablet Indications: Other acute nonsuppurative otitis media of right ear, recurrence not specified Take 1 tablet by mouth two times a day for 7 days. 14 tablet 0 12/07/2023 12/14/2023 Active fluconazole 150 mg oral tablet (11 sources) Azole Antifungal Start: 12-09-2023 End: 12-09-2023 fluconazole (DIFLUCAN) 150 mg tablet Take 1 tablet by mouth one time only for 1 dose. Repeat in 3 days as needed. 2 tablet 0 12/09/2023 12/09/2023 Active Start: 08-06-2019 End: 08-07-2019 take 1 tablet by mouth once daily, then take 1 tablet by mouth every twenty-four hours Fluconazole 200 mg tablet Discontinued 200 mg PO DAILY 1 August 06, 2019 1:00am August 06, 2019 1:00am August 07, 2019 1:09am Repeat with second tablet in 24 hours only if first tablet does not resolve symptoms Start: 05-08-2019 End: 05-12-2019 take 1 tablet by mouth every other day Fluconazole (Diflucan) 150 mg tablet Discontinued 150 mg PO every other day 2 3 May 08, 2019 1:00am May 10, 2019 1:00am May 12, 2019 1:07am fluticasone propionate 0.05 mg/actuat metered dose nasal spray (1 source) Corticosteroid Start: 10-24-2021 End: 01-22-2022 take 2 spray(s) by mouth once daily fluticasone (FLONASE) 50 mcg/actuation nasal spray Use 2 Sprays in each nostril once daily. Rinse mouth after use. 1 Each 2 10/24/2021 01/22/2022 Active Comment on above: Use 2 Sprays in each nostril once daily. Rinse mouth after use. meloxicam 15 mg oral tablet (11 sources) Nonsteroidal Anti-inflammatory Drug Start: 04-20-2021 take 1 tablet by mouth once daily Meloxicam (Mobic) 15 mg tablet Active 15 MG PO DAILY April 20, 2021 11:31am Comment on above: Take 15 mg by mouth once daily. As needed sertraline 50 mg oral tablet (20 sources) Serotonin Reuptake Inhibitor Start: 07-27-2021 End: 07-19-2024 take 1 tablet by mouth once daily Sertraline 50 mg tablet Active 50 mg PO DAILY October 05, 2022 12:00am Comment on above: Take 1 tablet by anne th once daily. valACYclovir 1000 mg oral tablet (20 sources) Herpesvirus Nucleoside Analog DNA Polymerase Inhibitor, Herpes Simplex Virus Nucleoside Analog DNA Polymerase Inhibitor, Herpes Zoster Virus Nucleoside Analog DNA Polymerase Inhibitor Start: 10-05-2022 Valacyclovir 1 gram tablet Active 1 mg PO NEEDED as needed for SHINGLES OUTBREAK October 05, 2022 12:00am Start: 10-05-2022 Valacyclovir A ctive 1 MG PO NEEDED October 04, 2022 11:00pm Start: 07-27-2021 End: 10-23-2022 valACYclovir (VALTREX) 1 gra m Take 2 tablets PO at the first sign of shingles, and then 2 more tabs in 12 hours. 0 07/27/2021 10/23/2022 Discontinued valACYclovir (VA LTREX) 1 gram tablet Take 1,000 mg by mouth as needed (outbreak). Active Comment on above: Take 2 tablets PO at the first sign of shingles, and then 2 more tabs in 12 hours. Take 1,000 mg by anne th as needed (outbreak). Completed/Discontinued Medications Medication Drug Class(es) Dates Sig (Normalized) Sig (Original) acetaminophen 325 mg / HYDROcodone bitartrate 5 mg oral tablet (10 sources) Opioid Agonist Start: 05-28-2017 End: 08-05-2017 Hydrocodone-Acetami nophen 1 TABLET tablet Discontinued 2 {tbl} PO EVERY 6 HOURS NEEDED as needed for Pain 60 June 05, 2017 August 05, 2017 1:59pm Start: 05-28-2017 End: 08-05-2017 take 2 tablets by mouth every six hours as needed Hydrocodone-Acetaminophen Discontinued 2 TABLET PO EVERY 6 HOURS NEEDED 60 June 05, 2017 August 05, 2017 12:59pm amoxicillin 875 mg / clavulanate 125 mg oral tablet (5 sources) Penicillin-class Antibacterial Start: 08-04-2019 End: 08-14-2019 Amoxicillin-Pot Clavulanate (Augmentin) 875-125 mg tablet Discontinued 1 {tbl} PO Q12H 20 August 04, 2019 1:00am August 13, 2019 1:00am August 14, 2019 1:09am cephalexin 500 mg oral capsule (5 sources) Cephalosporin Antibacterial Start: 04-22-2019 End: 08-04-2019 take 1 capsule by mouth three times daily Cephalexin 500 mg capsule Discontinued 500 mg PO THREE TIMES A DAY April 22, 2019 1:00am August 04, 2019 12:46pm citalopram 10 mg oral tablet (5 sources) Serotonin Reuptake Inhibitor Start: 02-03-2020 End: 04-20-2021 take 5 mg by mouth once daily Citalopram (Celexa) 10 mg tablet Discontinued 5 mg PO DAILY February 03, 2020 12:00am April 20, 2021 8:44am methylPREDNISolone acetate 40 mg/ml injectable suspension (2 sources) Corticosteroid Start: 04-20-2021 End: 04-20-2021 Depo-Medrol (methylprednisolon e acetate) 40 mg/mL suspension for injection Discontinued 40 MG INTRAARTIC ONCE 1 April 20, 2021 8:34am April 20, 2021 9:55am norethindrone acetate 5 mg oral tablet (12 sources) Start: 03-27-2023 norethindrone (AYGESTIN) 5 mg tablet Indications: Menorrhagia with regular cycle Take 1 tablet by mouth as directed. 1 tablet 3 times daily until bleeding stops then twice daily for 2 days then 1 tablet daily for 2 days. 30 tablet 0 09/10/2022 Active Start: 10-03-2021 norethindrone (AYGESTIN) 5 mg tablet Indications: Menorrhagia with regular cycle Take 1 tablet by mouth as directed. 1 tablet 3 times daily until bleeding stops then twice daily for 2 days then 1 tablet daily for 2 days. 30 tablet 0 10/03/2021 Active Start: 02-03-2020 End: 04-20-2021 take 1 tablet by mouth three times daily, then take 1 tablet by mouth twice daily Norethindrone Acetate (Aygestin) 5 mg tablet Discontinued 5 mg PO .COMPLEX 45 February 03, 2020 12:00am April 20, 2021 8:44am 5 mg PO tid until bleeding stops X 24 hr then bid to finish Rx norethindrone ac etate (AYGESTIN ORAL) Take by mouth. 0 Active Comment on above: Take 1 tablet by anne th as directed. 1 tablet 3 times daily until bleeding stops then twice daily for 2 days then 1 tablet daily for 2 days. Take by mouth. Einlh-8-WNQ-EPA-F ruby Oil (FISH OIL) 1,000 mg (120 mg-180 mg) cap (5 sources) take 1 capsule by mouth twice daily Ltomw-1-UJE-EPA-Fish Oil (FISH OIL) 1,000 mg (120 mg-180 mg) cap Take 2 g by mouth twice daily. 0 Active Comment on above: Take 2 g by mouth tw ice daily. Ryktg-7-AGR-EPA-F ruby Oil 1,000 mg (120 mg-180 mg) cap (7 sources) End: 09-06-2022 take 1 capsule by mouth twice daily Nwchr-2-VNG-EPA-Fish Oil 1,000 mg (120 mg-180 mg) cap Take 2 g by mouth twice daily. 0 09/06/2022 Discontinued (Other) take 1 capsule by mouth twice da maria esther Gdfue-6-QQD-EPA-Fish Oil 1,000 mg (120 mg- 180 mg) cap Take 2 g by mouth twice daily. 0 Active Comment on above: Take 2 g by mouth tw ice daily. predniSONE 10 mg oral tablet (8 sources) Start: 03-12-2022 End: 03-24-2022 Prednisone 10 mg tablet Discontinued 10 mg PO daily 15 06March 12, 2022 12:00am March 23, 2022 12:00am March 24, 2022 12:08am Take 4 tabs once daily days 1-3 3 tabs once daily days 4-6 2 tabs once daily days 7-9 and 1 tab once daily days 10-12. Start: 12-10-2019 End: 02-03-2020 take 4 tablets by mouth once daily, then take 3 tablets by mouth once daily, then take 2 tablets by mouth once daily, then take 1 tablet by mouth once daily Prednisone 10 mg tablet Discontinued 10 mg PO DAILY December 10, 2019 12:00am February 03, 2020 2:04pm 4 tablets daily for 3 days, then 3 tablets daily for 3 days, then 2 tablets daily for 3 days, then 1 tablet daily for 3 days triamcinolone acetonide 40 mg/ml injectable suspension (2 sources) Corticosteroid Start: 12-15-2019 End: 12-15-2019 Kenalog (triamcinolone acetonide) 40 mg/mL suspension for injection Discontinued 60 MG INTRAARTIC ONCE 1.5 December 15, 2019 7:55am December 15, 2019 8:44am Problems Active Problems Problem Classification Problem Date Documented Da te Episodic/Chronic Acquired foot deformities (1 source) Hallux valgus; Translations: [Hallux valgus (acquired), left foot] 10-22-2023 Chronic Acquired foot deformities (1 source) Hallux valgus; Translations: [Hallux valgus (acquired), right foot] 10-22-2023 Chronic Adjustment disorders (20 sources) Mixed anxiety and depressive disorder; Translations: [Adjustment disorder with mixed anxiety and depressed mood] Onset: 10-16-2019 10-16-2019 Chronic Administrative/social admission (1 source) Patient encounter status; Translations: [Encounter for health counseling related to travel] 07-30-2023 Episodic Allergic reactions (4 sources) Inflammatory dermatosis; Translations: [Irritant contact dermatitis, unspecified cause] Episodic Anxiety disorders (20 sources) Generalized anxiety disorder; Translations: [Generalized anxiety disorder] Onset: 10-16-2019 10-16-2019 Chronic Diseases of white blood cells (1 source) Leukocytosis; Translations: [Elevated white blood cell count, unspecified] Chronic Headache; including migraine (20 sources) Migraine; Translations: [Migraine, unspecified, not intractable, without status migrainosus] Onset: 08-23-2009 08-23-2009 Chronic Headache; including migraine (5 sources) Headache; Translations: [Post-traumatic headache, unspecified, not intractable] 06-03-2017 Episodic Malaise and fatigue (1 source) Other fatigue; Translations: [Other fatigue] Onset: 11-06-2024 Episodic Menstrual disorders (14 sources) Menometrorrhagia; Translations: [Excessive and frequent menstruation with irregular cycle] Chronic Mood disorders (20 sources) Recurrent major depression in full remission; Translations: [Major depressive disorder, recurrent, in full remission] Onset: 07-27-2021 Resolved: 07-27-2021 07-27-2021 Chronic Nonspecific chest pain (5 sources) Chest pain; Translations: [Chest pain, unspecified] 08-20-2017 Episodic Other connective tissue disease (5 sources) Impingement syndrome of shoulder region; Translations: [Impingement syndrome of left shoulder] 10-20-2022 Episodic Other ear and sense organ disorders (1 source) Hearing loss of right ear; Translations: [Unspecified hearing loss, right ear] 12-07-2023 Chronic Other ear and sense organ disorders (1 source) Impacted cerumen in right ear; Translations: [Impacted cerumen, right ear] 12-07-2023 Episodic Other ear and sense organ disorders (1 source) Otalgia, right ear; Translations: [Otalgia, unspecified] 12-07-2023 Episodic Other non-traumatic joint disorders (3 sources) Shoulder pain; Translations: [Pain in left shoulder] Episodic Other non-traumatic joint disorders (2 sources) Pain in left shoulder; Translations: [Left shoulder pain] 10-20-2022 Episodic Other screening for suspected conditions (not mental disorders or infectious disease) (8 sources) Mammography abnormal; Translations: [Other abnormal and inconclusive findings on diagnostic imaging of breast] Onset: 11-03-2024 Episodic Other skin disorders (1 source) Scar of hand; Translations: [Scar conditions and fibrosis of skin] Episodic Other skin disorders (1 source) Dystrophia unguium; Translations: [Nail dystrophy] 10-22-2023 Episodic Otitis media and related conditions (1 source) Acute secretory otitis media; Translations: [Other acute nonsuppurative otitis media, right ear] 12-07-2023 Episodic Phlebitis; thrombophlebitis and thromboembolism (5 sources) Deep venous thrombosis; Translations: [Acute embolism and thrombosis of unspecified deep veins of unspecified lower extremity] 04-20-2021 Episodic Residual codes; unclassified (5 sources) Positive measurement finding; Translations: [Positive test for human papillomavirus (HPV)] 04-20-2021 Episodic Comment on above: Pap normal, repeat p ap in 2020 Spondylosis; intervertebral disc disorders; other back problems (5 sources) Neck pain; Translations: [Cervicalgia] 04-20-2021 Episodic Viral infection (20 sources) Herpes zoster; Translations: [Zoster without complications] 08-30-2005 Episodic Past or Other Problems Problem Classification Problem Date Documented Date Episodic/Chronic Hemorrhoids (20 sources) Internal hemorrhoids; Translations: [Other hemorrhoids] Onset: 04-26-2011 04-26-2011 Episodic Mycoses (3 sources) Onychomycosis of toenails; Translations: [Tinea unguium] Onset: 10-22-2023 10-05-2023 Episodic Other lower respiratory disease (20 sources) Dry cough; Translations: [Dry cough] Onset: 03-02-2009 03-02-2009 Episodic Ovarian cyst (20 sources) Cyst of left ovary; Translations: [Unspecified ovarian cyst, left side] Onset: 05-20-2015 05-19-2021 Episodic Pulmonary heart disease (20 sources) Pulmonary embolism; Translations: [Other pulmonary embolism without acute cor pulmonale] Onset: 06-14-2017 06-14-2017 Episodic Sprains and strains (20 sources) Low back strain; Translations: [Strain of muscle, fascia and tendon of lower back, subsequent encounter] Onset: 10-13-2018 10-13-2018 Episodic Unclassified (1 source) Patient encounter status 08-18-2024 Results Test Name Value Interpretation Reference Range Facility Testosterone, Total / Freeon 11-11-2024 TESTOSTER,FREE 0.68 ng/dL Normal 0.10-0.85 [facility] Comment on above: Order Comment: N Performed By: #### L [id number] #### [facility] [address] [place], [place], [id number] TESTOSTER,TOTAL 34 ng/dL Normal 4-50 [facility] Comment on above: Order Comment: N Performed By: #### L [id number] #### [facility] [address] [place], [place], [id number] TESTOSTERONE,%F 2.00 Normal 0.50-2.80 [facility] Comment on above: Order Comment: N Result Comment: Perf ormed at: [address] [id number] Form Press Operator: Zia Ortega PhD, Phone: [phone] Performed at: [facility] [employer] [id number] Form Press Operator: Tarun Steve MD, Phone: [phone] Performed By: #### L [id number] #### [facility] [address] [place], [place], [id number] PROGESTERONE 4317on 10-31-19 25 PROGESTERONE 1.4 ng/mL Normal . [facility] Comment on above: Order Comment: N Result Comment: Foll icular phase 0.1 - 0.9 Luteal phase 1.8 - 23.9 Ovulation phase 0.1 - 12.0 First trimester 11.0 - 44.3 Second trimester 25.4 - 83.3 Third trimester 58.7 - 214.0 Postmenopausal 0.0 - 0.1 Performed at: [address] [id number] Form Press Operator: Zia Ortega PhD, Phone: [phone] Performed By: #### L 500.4100, L100.0100, L500.4050, L503.0106, L3300.1750, L3100.5055, L506.1001, L801.2600, L501.9520, L501.9985 #### [facility] [address] [place], [place], [id number] Absolute lymphocyte countOrd ered By: [facility] Yashira Mendiola on 10-28-2024 Lymphocytes Auto (Unsp spec) [#/Vol] 2.24 10*3/uL 0.83-4.51 [facility] Absolute neutrophil countOrd ered By: [facility] Yashira Mendiola on 10-28-2024 Neutrophils (Bld) [#/Vol] 5.7 10*3/uL 2.0-7.7 [facility] Anion gap in Serum or Plasma Ordered By: [facility]ury on 10-28-2024 Anion gap [Moles/Vol] 12 mmol/L 5- [facility] Automated lymphocyte count a s percentage of total leukocytesOrdered By: [facility] Maury on 10-28-2024 Lymphocytes/100 WBC Auto (Unsp spec) 25.6 % - [facility] BUN/creatinine ratioOrdered By: [facility] Maury on 10-28-2024 Urea nitrogen/Creatinine [Mass ratio] 13.7 mg/mg 10- [facility] Basophil percentageOrdered B y: [facility] Maury on 10-28-2024 Basophils/100 WBC (Bld) 0.3 % 0-1 [facility] Bilirubin, totalOrdered By: [facility] Maury on 10-28-2024 Bilirubin [Mass/Vol] 0.33 mg/dL 0.00-1.30 [facility] CBC W/Diff, Automatedon 10-15 Absolute Lymph 2.24 X10 3/uL Normal 0.83-4.51 [facility] Comment on above: Performed By: #### L 500.4100, L100.0100, L500.4050, L503.0106, L3300.1750, L3100.5055, L506.1001, L801.2600, L501.9520, L501.9985 #### [facility] [place], [address] Absolute Neut 5.7 X10 3/uL Normal 2.0-7.7 [facility] Comment on above: Performed By: #### L 500.4100, L100.0100, L500.4050, L503.0106, L3300.1750, L3100.5055, L506.1001, L801.2600, L501.9520, L501.9985 #### [facility] [address] [facility] [place], [address] ( Basophils/100 WBC (Bld) 0.3 % Normal 0-1 [facility] Comment on above: Performed By: #### L 500.4100, L100.0100, L500.4050, L503.0106, L3300.1750, L3100.5055, L506.1001, L801.2600, L501.9520, L501.9985 #### [facility] [address] [place], [address] (934 Eosinophils/100 WBC (Bld) 1.3 % Normal 0-5 [facility] Comment on above: Performed By: #### L 500.4100, L100.0100, L500.4050, L503.0106, L3300.1750, L3100.5055, L506.1001, L801.2600, L501.9520, L501.9985 #### [facility] [address] [facility] [place], [address] (292 Erythrocyte distribution width (RBC) [Ratio] 12.7 % Normal 11.6-14.6 [facility] Comment on above: Performed By: #### L 500.4100, L100.0100, L500.4050, L503.0106, L3300.1750, L3100.5055, L506.1001, L801.2600, L501.9520, L501.9985 #### [facility] [address] [facility] [place], [address] (965 Hematocrit (Bld) [Volume fraction] 45.6 % Normal 37-47 [facility] Comment on above: Performed By: #### L 500.4100, L100.0100, L500.4050, L503.0106, L3300.1750, L3100.5055, L506.1001, L801.2600, L501.9520, L501.9985 #### [facility] [address] [place], [address] Hemoglobin (Bld) [Mass/Vol] 15.5 g/dL High 12.0-15.0 [facility] Comment on above: Performed By: #### L 500.4100, L100.0100, L500.4050, L503.0106, L3300.1750, L3100.5055, L506.1001, L801.2600, L501.9520, L501.9985 #### [facility] [address] [facility] [place], [address] IG% 0.200 Normal 0.0-0.9 [facility] Comment on above: Result Comment: IG% - Immature Granulocytes (promyelocytes, myelocytes and metamyelocytes) > 1% indicates that a LEFT SHIFT is Present. Performed By: #### L 500.4100, L100.0100, L500.4050, L503.0106, L3300.1750, L3100.5055, L506.1001, L801.2600, L501.9520, L501.9985 #### [facility] [address] [place], [address] Lymphocytes/100 WBC (Bld) 25.6 % Normal 19-41 [facility] Comment on above: Performed By: #### L 500.4100, L100.0100, L500.4050, L503.0106, L3300.1750, L3100.5055, L506.1001, L801.2600, L501.9520, L501.9985 #### [facility] [address] [place], [address] MCH (RBC) [Entitic mass] 33.4 pg High 27.0-32.0 [facility] Comment on above: Performed By: #### L 500.4100, L100.0100, L500.4050, L503.0106, L3300.1750, L3100.5055, L506.1001, L801.2600, L501.9520, L501.9985 #### [facility] [address] [place], [address] MCHC (RBC) [Mass/Vol] 34.0 g/dL Normal 32-36 [facility] Comment on above: Performed By: #### L 500.4100, L100.0100, L500.4050, L503.0106, L3300.1750, L3100.5055, L506.1001, L801.2600, L501.9520, L501.9985 #### [facility] [address] [place], [address] MCV (RBC) [Entitic vol] 98.3 fL Normal 81-99 [facility] Comment on above: Performed By: #### L 500.4100, L100.0100, L500.4050, L503.0106, L3300.1750, L3100.5055, L506.1001, L801.2600, L501.9520, L501.9985 #### [facility] [address] [facility] [place], [address] Monocytes/100 WBC (Bld) 7.1 % Normal 0-10 [facility] Comment on above: Performed By: #### L 500.4100, L100.0100, L500.4050, L503.0106, L3300.1750, L3100.5055, L506.1001, L801.2600, L501.9520, L501.9985 #### [facility] [address] [place], [address] Neutrophils/100 WBC (Bld) 65.5 % Normal 47-70 [facility] Comment on above: Performed By: #### L 500.4100, L100.0100, L500.4050, L503.0106, L3300.1750, L3100.5055, L506.1001, L801.2600, L501.9520, L501.9985 #### [facility] [address] [place], [address] Nucleated RBC (Bld) [#/Vol] 0 10*3/uL Normal 0-5 [facility] Comment on above: Performed By: #### L 500.4100, L100.0100, L500.4050, L503.0106, L3300.1750, L3100.5055, L506.1001, L801.2600, L501.9520, L501.9985 #### [facility] [address] [facility] [place], [address] Platelet mean volume (Bld) [Entitic vol] 11.1 fL Normal 6.2-12.0 [facility] Comment on above: Performed By: #### L 500.4100, L100.0100, L500.4050, L503.0106, L3300.1750, L3100.5055, L506.1001, L801.2600, L501.9520, L501.9985 #### [facility] [address] [place], [address] Platelets (Bld) [#/Vol] 256 10*3/uL Normal 150-450 [facility] Comment on above: Performed By: #### L 500.4100, L100.0100, L500.4050, L503.0106, L3300.1750, L3100.5055, L506.1001, L801.2600, L501.9520, L501.9985 #### [facility] [address] [place], [address] RBC (Bld) [#/Vol] 4.64 10*6/uL Normal 4.2-5.4 [facility] Comment on above: Performed By: #### L 500.4100, L100.0100, L500.4050, L503.0106, L3300.1750, L3100.5055, L506.1001, L801.2600, L501.9520, L501.9985 #### [facility] [address] [place], [place], [id number] (002) RDW SD 45.7 fl High 35.1-43.9 [facility] Comment on above: Performed By: #### L 500.4100, L100.0100, L500.4050, L503.0106, L3300.1750, L3100.5055, L506.1001, L801.2600, L501.9520, L501.9985 #### [facility] [address] [place], [address] WBC (Bld) [#/Vol] 8.7 10*3/uL Normal 4.4-11.0 [facility] Comment on above: Performed By: #### L 500.4100, L100.0100, L500.4050, L503.0106, L3300.1750, L3100.5055, L506.1001, L801.2600, L501.9520, L501.9985 #### [facility] [address] [place], [place], [id number] Calculated very low density lipoprotein (VLDL) cholesterol measurementOrdered By: [facility] Yashira Mendiola on 10-28-2024 Calculated very low density lipoprotein (VLDL) cholesterol measurement 19 mg/dL 5-40 [facility] Carbon dioxide, total [Moles /volume] in Central venous bloodOrdered By: [facility] Yashira Mendiola on 10-28-2024 CO2 [Moles/Vol] 23.7 mmol/L 21.0-32.0 [facility] Chloride assayOrdered By: CYNDEE Mendiola on 10-28-2024 Chloride [Moles/Vol] 101 mmol/L 98-108 [facility] Comprehensive Metabolic Prof ilon 10-28-2024 Albumin [Mass/Vol] 4.6 g/dL Normal 3.5-5.0 [facility] Comment on above: Performed By: #### L 500.4100, L100.0100, L500.4050, L503.0106, L3300.1750, L3100.5055, L506.1001, L801.2600, L501.9520, L501.9985 #### [facility] [address] [place], [place], [id number] Albumin/Globulin [Mass ratio] 1.5 {ratio} Normal 0.9-2.4 [facility] Comment on above: Performed By: #### L 500.4100, L100.0100, L500.4050, L503.0106, L3300.1750, L3100.5055, L506.1001, L801.2600, L501.9520, L501.9985 #### [facility] [address] [place], [address] ALK PHOS 58 U/L Normal 35-104 [facility] Comment on above: Performed By: #### L 500.4100, L100.0100, L500.4050, L503.0106, L3300.1750, L3100.5055, L506.1001, L801.2600, L501.9520, L501.9985 #### [facility] [address] [place], [address] ALT [Catalytic activity/Vol] 15 U/L Normal <=34 [facility] Comment on above: Performed By: #### L 500.4100, L100.0100, L500.4050, L503.0106, L3300.1750, L3100.5055, L506.1001, L801.2600, L501.9520, L501.9985 #### [facility] [address] [place], [address] AST [Catalytic activity/Vol] 21 U/L Normal <=31 [facility] Comment on above: Performed By: #### L 500.4100, L100.0100, L500.4050, L503.0106, L3300.1750, L3100.5055, L506.1001, L801.2600, L501.9520, L501.9985 #### [facility] [address] [place], [address] Bilirubin [Mass/Vol] 0.33 mg/dL Normal 0.00-1.30 [facility] Comment on above: Performed By: #### L 500.4100, L100.0100, L500.4050, L503.0106, L3300.1750, L3100.5055, L506.1001, L801.2600, L501.9520, L501.9985 #### [facility] [address] [place], [place], [phone] (484) BUN/CRE 13.7 RATIO Normal 10-20 [facility] Comment on above: Performed By: #### L 500.4100, L100.0100, L500.4050, L503.0106, L3300.1750, L3100.5055, L506.1001, L801.2600, L501.9520, L501.9985 #### [facility] [address] [place], [address] Calcium [Mass/Vol] 9.7 mg/dL Normal 7.6-11.0 [facility] Comment on above: Performed By: #### L 500.4100, L100.0100, L500.4050, L503.0106, L3300.1750, L3100.5055, L506.1001, L801.2600, L501.9520, L501.9985 #### [facility] [address] [place], [address] Chloride [Moles/Vol] 101 mmol/L Normal 98-108 [facility] Comment on above: Performed By: #### L 500.4100, L100.0100, L500.4050, L503.0106, L3300.1750, L3100.5055, L506.1001, L801.2600, L501.9520, L501.9985 #### [facility] [address] [place], [address] (786) CO2 [Moles/Vol] 23.7 mmol/L Normal 21.0-32.0 [facility] Comment on above: Performed By: #### L 500.4100, L100.0100, L500.4050, L503.0106, L3300.1750, L3100.5055, L506.1001, L801.2600, L501.9520, L501.9985 #### [facility] [address] [place], [address] (466) Creatinine [Mass/Vol] 0.87 mg/dL Normal 0.70-1.20 [facility] Comment on above: Performed By: #### L 500.4100, L100.0100, L500.4050, L503.0106, L3300.1750, L3100.5055, L506.1001, L801.2600, L501.9520, L501.9985 #### [facility] [address] [place], [address] (642) GAP 12 Normal 5-15 [facility] Comment on above: Performed By: #### L 500.4100, L100.0100, L500.4050, L503.0106, L3300.1750, L3100.5055, L506.1001, L801.2600, L501.9520, L501.9985 #### [facility] [address] [place], [place], [id number] (000) GFR/1.73 sq M.predicted among non-blacks MDRD (S/P/Bld) [Vol rate/Area] 81 mL/min/{1.73_m2} Normal >60 [facility] Comment on above: Result Comment: mL/m in/1.73m2 CKD-EPI Creatinine Equation (2020) Performed By: #### L 500.4100, L100.0100, L500.4050, L503.0106, L3300.1750, L3100.5055, L506.1001, L801.2600, L501.9520, L501.9985 #### [facility] [address] [place], [address] Globulin (S) [Mass/Vol] 3.2 g/dL Normal 2.2-4.2 [facility] Comment on above: Performed By: #### L 500.4100, L100.0100, L500.4050, L503.0106, L3300.1750, L3100.5055, L506.1001, L801.2600, L501.9520, L501.9985 #### [facility] [address] [place], [address] Glucose [Mass/Vol] 87 mg/dL Normal 70-99 [facility] Comment on above: Performed By: #### L 500.4100, L100.0100, L500.4050, L503.0106, L3300.1750, L3100.5055, L506.1001, L801.2600, L501.9520, L501.9985 #### [facility] [address] [place], [address] Potassium [Moles/Vol] 4.0 mmol/L Normal 3.3-5.1 [facility] Comment on above: Performed By: #### L 500.4100, L100.0100, L500.4050, L503.0106, L3300.1750, L3100.5055, L506.1001, L801.2600, L501.9520, L501.9985 #### [facility] [address] [place], [place], [id number] Sodium [Moles/Vol] 137 mmol/L Normal 133-145 [facility] Comment on above: Performed By: #### L 500.4100, L100.0100, L500.4050, L503.0106, L3300.1750, L3100.5055, L506.1001, L801.2600, L501.9520, L501.9985 #### [facility] [address] [place], [address] T PROT 7.7 g/dL Normal 5.9-8.4 [facility] Comment on above: Performed By: #### L 500.4100, L100.0100, L500.4050, L503.0106, L3300.1750, L3100.5055, L506.1001, L801.2600, L501.9520, L501.9985 #### [facility] [address] [place], [place], [id number] Urea nitrogen [Mass/Vol] 12 mg/dL Normal 4-19 [facility] Comment on above: Performed By: #### L 500.4100, L100.0100, L500.4050, L503.0106, L3300.1750, L3100.5055, L506.1001, L801.2600, L501.9520, L501.9985 #### [facility] [address] [place], [place], [id number] Eosinophil percentageOrdered By: [facility] Yashira Mendiola on 10-28-2024 Eosinophils/100 WBC (Bld) 1.3 % 0-5 [facility] Erythrocyte distribution wid th ratioOrdered By: [facility] Yashira Mendiola on 10-28-2024 Erythrocyte distribution width (RBC) [Ratio] 12.7 % 11.6-14.6 [facility] Erythrocyte distribution wid th standard deviationOrdered By: [facility] Yashira Mendiola on 10-28-2024 Erythrocyte distribution width (RBC) [Ratio] 45.7 fl High 35.1-43.9 [facility] Estradiolon 10-28-2024 ESTRADIOL 381.0 pg/mL Normal [facility] Comment on above: Result Comment: FEMA LES ADULT FEMALE: Premenopausal: 15-350 pg/mL(E2 levels vary widely through the menstrual cycle) Postmenopausal: <10 pg/mL REJI STAGES MEAN AGE REFERENCE RANGES Stage I(>14 days and prepubertal) 7.1 years Undetectable-20 pg/mLL Stage II 10.5 years Undetectable-24 pg/mL Stage III 11.6 years Undetectable-60 pg/mL Stage IV 12.3 years 15-85 pg/mL Stage V 14.5 years 15-350 pg/mL Puberty onset (transition from Reji stage I to Reji stage II) occurs for girls at a median age of 10.5 (/- 2) years. There is evidence that it may occur up to 1 year earlier in obese girls and in girls. Progression through Reji stages is variable. Reji stage V (adult) should be reached by age 18. Performed By: #### L 500.4100, L100.0100, L500.4050, L503.0106, L3300.1750, L3100.5055, L506.1001, L801.2600, L501.9520, L501.9985 #### [facility] [address] [place], [address] FSH and LHon 10-28-2024 FSH 16.2 mIU/mL Normal [facility] Comment on above: Result Comment: FEMA LE: Follicular: 1.4 - 18.1 mIU/mL Midcycle: 3.4 - 33.4 mIU/mL Luteal: 1.5 - 9.1 mIU/mL Post Menopause: 23.0 - 116.3 mIU/mL MALE: 1.4 - 18.1 mIU/mL NORMAL REFERENCE RANGES FEMALE FOLLICULAR 2.3 - 12.6 mIU/mL MID-CYCLE PEAK 5.2 - 17.5 mIU/mL LUTEAL 1.7 - 12.9 mIU/mL POST-MENOPAUSAL ON MHT 5.9 - 72.8 mIU/mL NOT ON MHT 12.7 - 132.2 mlU/mL MALE 0.7 - 10.8 mIU/mL Performed By: #### L 500.4100, L100.0100, L500.4050, L503.0106, L3300.1750, L3100.5055, L506.1001, L801.2600, L501.9520, L501.9985 #### [facility] [address] [place], [address] LH 74.1 mIU/mL Normal [facility] Comment on above: Result Comment: FEMA LE: Follicular: 1.9-12.5 mIU/mL Midcycle: 8.7-76.3 mIU/mL Luteal: 0.5-16.9 mIU/mL Post Menopause: 15.9-54.0 mIU/mL MALE: 20-70 Years: 1.5-9.3 mIU/mL >70 Years: 3.1-34.6 mIU/mL Performed By: #### L 500.4100, L100.0100, L500.4050, L503.0106, L3300.1750, L3100.5055, L506.1001, L801.2600, L501.9520, L501.9985 #### [facility] [address] [place], [address] Glomerular filtration rate ( GFR) estimation/1.73 sq m using serum, plasma, or whole bOrdered By: [facility] Yashira Mendiola on 10-28-2024 GFR/1.73 sq M.predicted among non-blacks MDRD (S/P/Bld) [Vol rate/Area] 81 mL/min/{1.73_m2} >60 [facility] Comment on above: mL/min/1.73m2 CKD-EP I Creatinine Equation (2020) Hematocrit Auto (Bld) [Volum e fraction]Ordered By: [facility] Yashira Mendiola on 10-28-2024 Hematocrit (Bld) [Volume fraction] 45.6 % 37-47 [facility] Hemoglobin A1con 10-28-2024 HbA1c (Bld) [Mass fraction] 5.3 % Normal <=5.6 [facility] Comment on above: Result Comment: Norm al < 5.7 % Prediabetic 5.7 - 6.4 % Diabetic >or= 6.5 % Please note range changes. Performed By: #### L 500.4100, L100.0100, L500.4050, L503.0106, L3300.1750, L3100.5055, L506.1001, L801.2600, L501.9520, L501.9985 #### [facility] [address] [place], [address] Hemoglobin A1c percentageOrd ered By: [facility] Yashira Mendiola on 10-28-2024 HbA1c (Bld) [Mass fraction] 5.3 % <5.7 [facility] Comment on above: Normal < 5.7 % Predi abetic 5.7 - 6.4 % Diabetic >or= 6.5 % Please note range changes. Hemoglobin measurementOrdere d By: [facility] Yashira Mendiola on 10-28-2024 Hemoglobin (Bld) [Mass/Vol] 15.5 g/dL High 12.0-15.0 [facility] Immature granulocytes/100 WB C Auto (Bld)Ordered By: [facility] Yashira Mendiola on 10-28-2024 Immature granulocytes/100 WBC (Bld) 0.200 % 0.0-0.9 [facility] Comment on above: IG% - Immature Granu locytes (promyelocytes, myelocytes and metamyelocytes) > 1% indicates that a LEFT SHIFT is Present. LDL calc ser/plasOrdered By: [facility] Yashira [place]ila on 10-28-2024 Cholesterol in LDL [Mass/Vol] 170 mg/dL [facility] Comment on above: Wrrqubueoq=014-965 m g/dL & Higher Zqnw=106 mg/dL or greater Laboratory - Chemistry and C hemistry - challengeOrdered By: [facility] Yashira Mendiola on 10-28-2024 AST [Catalytic activity/Vol] 21 U/L <32 [facility] Lipid Profileon 10-28-2024 CHOL:HDL 3.53 Normal [facility] Comment on above: Performed By: #### L 500.4100, L100.0100, L500.4050, L503.0106, L3300.1750, L3100.5055, L506.1001, L801.2600, L501.9520, L501.9985 #### [facility] [address] [place], [place], [id number] (306) Cholesterol [Mass/Vol] 265 mg/dL High <=200 [facility] Comment on above: Result Comment: Chol esterol level, Desirable <200 mg/dL Borderline high cholesterol 200-239 mg/dL High cholesterol >=240 mg/dL Recommendations of the NCEP Adult Treatment Panel for the following risk-cutoff thresholds for the [place] population. Performed By: #### L 500.4100, L100.0100, L500.4050, L503.0106, L3300.1750, L3100.5055, L506.1001, L801.2600, L501.9520, L501.9985 #### [facility] [address] [place], [place], [id number] (987) Cholesterol in HDL [Mass/Vol] 75 mg/dL Normal [facility] Comment on above: Result Comment: Rose onal Cholesterol Education Program (NCEP) guidelines: <40 mg/dL: Low HDL-cholesterol (major risk factor for CHD) >= 60 mg/dL: High HDL-cholesterol (negative risk factor for CHD) HDL-cholesterol is affected by a number of factors, e.g. smoking, exercise, hormones, sex and age. Performed By: #### L 500.4100, L100.0100, L500.4050, L503.0106, L3300.1750, L3100.5055, L506.1001, L801.2600, L501.9520, L501.9985 #### [facility] [address] [place], [place], [id number] (148) Cholesterol in LDL [Mass/Vol] 170 mg/dL Normal [facility] Comment on above: Result Comment: Bord rjvufr=313-324 mg/dL Higher Njan=071 mg/dL or greater Performed By: #### L 500.4100, L100.0100, L500.4050, L503.0106, L3300.1750, L3100.5055, L506.1001, L801.2600, L501.9520, L501.9985 #### [facility] [address] [place], [place], [id number] Cholesterol in VLDL [Mass/Vol] 19 mg/dL Normal 5-40 [facility] Comment on above: Performed By: #### L 500.4100, L100.0100, L500.4050, L503.0106, L3300.1750, L3100.5055, L506.1001, L801.2600, L501.9520, L501.9985 #### [facility] [address] [place], [address] (215) Triglyceride [Mass/Vol] 97 mg/dL Normal [facility] Comment on above: Result Comment: The drugs N-Acetylcysteine and Metamizole may falsely depress this assay. Normal range: <150 mg/dL Borderline High: 150-199 mg/dL High: 200-499 mg/dL Very High: >500 mg/dL Performed By: #### L 500.4100, L100.0100, L500.4050, L503.0106, L3300.1750, L3100.5055, L506.1001, L801.2600, L501.9520, L501.9985 #### [facility] [address] [place], [address] MCV (mean corpuscular volume ) determinationOrdered By: [facility] Yashira Mendiola on 10-28-2024 MCV (RBC) [Entitic vol] 98.3 fL 81-99 [facility] Mean corpuscular hemoglobin (MCH) determinationOrdered By: [facility] Yashira Mendiola on 10-28-2024 MCH (RBC) [Entitic mass] 33.4 pg High 27.0-32.0 [facility] Mean corpuscular hemoglobin concentration (MCHC) determinationOrdered By: [facility] Yashira Mendiola on 10-28-2024 MCHC (RBC) [Mass/Vol] 34.0 g/dL 32-36 [facility] Mean platelet volume determi nationOrdered By: [facility] Yashira Mendiola on 10-28-2024 Platelet mean volume (Bld) [Entitic vol] 11.1 fL 6.2-12.0 [facility] Monocyte percentageOrdered B y: [facility] Yashira Mendiola on 10-28-2024 Monocytes/100 WBC (Bld) 7.1 % 0-10 [facility] Neutrophil percentageOrdered By: [facility] Yashira Mendiola on 10-28-2024 Neutrophils/100 WBC (Bld) 65.5 % 47-70 [facility] Nucleated red blood cell per centageOrdered By: [facility] Yashira Mendiola on 10-28-2024 Nucleated RBC/100 WBC (Bld) [Ratio] 0 % 0-5 [facility] Platelet countOrdered By: [facility] Yashira Mendiola on 10-28-2024 Platelets (Bld) [#/Vol] 256 10*3/uL 150-450 [facility] Potassium measurement (mass/ volume)Ordered By: [facility] Yashira Mendiola on 10-28-2024 Potassium (Unsp spec) [Mass/Vol] 4.0 mmol/L 3.3-5.1 [facility] RBC Auto (Bld) [#/Vol]Ordere d By: [facility] Yashira Mendiola on 10-28-2024 RBC (Bld) [#/Vol] 4.64 10*6/uL 4.2-5.4 [facility] Screening total cholesterol/ high density lipoprotein (HDL) cholesterol ratioOrdered By: [facility] Yashira Mendiola on 10-28-2024 Cholesterol.total/Kortney sterol in HDL [Mass ratio] 3.53 {ratio} [facility] Serum creatinine measurement (mass/volume)Ordered By: CHERY Mendiola on 10-28-2024 Creatinine [Mass/Vol] 0.87 mg/dL 0.70-1.20 [facility] Serum globulin measurementOr dered By: [facility] Yashira Mendiola on 10-28-2024 Globulin (S) [Mass/Vol] 3.2 g/dL 2.2-4.2 [facility] Serum glucose measurement (m ass/volume)Ordered By: [facility] Yashira Mendiola on 10-28-2024 Glucose [Mass/Vol] 87 mg/dL 70-99 [facility] Serum or plasma alanine javier otransferase (ALT) measurementOrdered By: [facility] Yashirakurtis Mendiola on 10-28-2024 ALT [Catalytic activity/Vol] 15 U/L <35 [facility] Serum or plasma albumin josiane urement (mass/volume)Ordered By: [facility] Yashira Mendiola on 10-28-2024 Albumin [Mass/Vol] 4.6 g/dL 3.5-5.0 [facility] Serum or plasma albumin/glob ulin mass ratioOrdered By: [facility] Maury on 10-28-2024 Albumin/Globulin [Mass ratio] 1.5 {ratio} 0.9-2.4 [facility] Serum or plasma alkaline kaity sphatase measurementOrdered By: [facility] Yashirakurtis Mendiola on 10-28-2024 ALP [Catalytic activity/Vol] 58 U/L 35-104 [facility] Serum or plasma calcium josiane urement (mass/volume)Ordered By: [facility] Yashirakurtis Mendiola on 10-28-2024 Calcium [Mass/Vol] 9.7 mg/dL 7.6-11.0 [facility] Serum or plasma cholesterol in HDL measurement (mass/volume)Ordered By: [facility] Yashirakurtis Mendiola on 10-28-2024 Cholesterol in HDL [Mass/Vol] 75 mg/dL >40 [facility] Comment on above: National Cholesterol Education Program (NCEP) guidelines:<40 mg/dL: Low HDL-cholesterol (major risk factor for CHD)>= 60 mg/dL: High HDL-cholesterol (negative risk factor for CHD)HDL-cholesterol is affected by a number of factors, e.g. smoking, exercise, hormones, sex and age. Serum or plasma cholesterol measurement (mass/volume)Ordered By: [facility] Yashira Mendiola on 10-28-2024 Cholesterol [Mass/Vol] 265 mg/dL High <201 [facility] Comment on above: Cholesterol level, D esirable <200 mg/dLBorderline high cholesterol 200-239 mg/dLHigh cholesterol >=240 mg/dLRecommendations of the NCEP Adult Treatment Panel for the following risk-cutoff thresholds for the [place] population. Serum or plasma estradiol me asurement after follitropin dose (mass/volume)Ordered By: [facility] Yashira Mendiola on 10-28-2024 E2 post dose follitropin [Mass/Vol] 381.0 pg/mL [facility] Comment on above: FEMALES ADULT FEMALE : Premenopausal: 15-350 pg/mL(E2 levels vary widely through the menstrual cycle) Postmenopausal: <10 pg/mL REJI STAGES MEAN AGE REFERENCE RANGES Stage I(>14 days and prepubertal) 7.1 years Undetectable-20 pg/mLL Stage II 10.5 years Undetectable-24 pg/mL Stage III 11.6 years Undetectable-60 pg/mL Stage IV 12.3 years 15-85 pg/mL Stage V 14.5 years 15-350 pg/mL Puberty onset (transition from Reji stage I to Reji stage II) occurs for girls at a median age of 10.5 (/- 2) years. There is evidence that it may occur up to 1 year earlier in obese girls and in girls.Progression through Reji stages is variable. Reji stage V (adult) should be reached by age 18. Serum or plasma urea nitroge n measurement (mass/volume)Ordered By: [facility] Yashira Mendiola on 10-28-2024 Urea nitrogen [Mass/Vol] 12 mg/dL 4-19 [facility] Sodium levelOrdered By: [facility] Yashira Mendiola on 10-28-2024 Sodium [Moles/Vol] 137 mmol/L 133-145 [facility] TSH DL <= 0.005 mIU/L QnOrde red By: [facility] Yashira Mendiola on 10-28-2024 TSH Qn 1.930 uIU/mL 0.300-4.200 [facility] Thyroid Stim Hormone (TSH)on 10-28-2024 TSH 1.930 uIU/mL Normal 0.300-4.200 [facility] Comment on above: Performed By: #### L 500.4100, L100.0100, L500.4050, L503.0106, L3300.1750, L3100.5055, L506.1001, L801.2600, L501.9520, L501.9985 #### [facility] [address] [place], [address] Total proteinOrdered By: [facility] Yashira Maury on 10-28-2024 Protein [Mass/Vol] 7.7 g/dL 5.9-8.4 [facility] Triglycerides measurementOrd ered By: [facility] Yashira Maury on 10-28-2024 Triglyceride [Mass/Vol] 97 mg/dL <199 [facility] Comment on above: The drugs N-Acetylcy steine and Metamizole may falsely depress this assay. Normal range: <150 mg/dLBorderline High: 150-199 mg/dLHigh: 200-499 mg/dLVery High: >500 mg/dL Vitamin B12on 10-28-2024 Cobalamin (Vitamin B12) [Mass/Vol] 860 pg/mL Normal 180-914 [facility] Comment on above: Performed By: #### L 500.4100, L100.0100, L500.4050, L503.0106, L3300.1750, L3100.5055, L506.1001, L801.2600, L501.9520, L501.9985 #### [facility] [address] [place], [place], [id number] Vitamin B12 ser/plasOrdered By: [facility] Yashira Maury on 10-28-2024 Cobalamin (Vitamin B12) [Mass/Vol] 860 pg/mL 180-914 [facility] Vitamin D,25 Hydroxyon 10-28 Vitamin D 25-OH 54.1 ng/mL Normal 30-100 [facility] Comment on above: Result Comment: Angélica min D Status Deficiency: <20 ng/mL (50nmol/L) Insufficiency: 20-30 ng/mL (50-75 nmol/L) Sufficiency: 30-100 ng/mL (75-250 nmol/L) Toxicity: >100 ng/mL (>250 nmol/L) Performed By: #### L 500.4100, L100.0100, L500.4050, L503.0106, L3300.1750, L3100.5055, L506.1001, L801.2600, L501.9520, L501.9985 #### [facility] [place], [address] White blood cell (WBC) count Ordered By: [facility] Yashira Maury on 10-28-2024 WBC (Bld) [#/Vol] 8.7 10*3/uL 4.4-11.0 [facility] -------- HARRISON GUIDO ([id number]) 1975 F Date Time Provider Department 12/09/23 GANESH WINTER [facility] During your visit today, we recorded the following information about you: Cindy Bailey RN 12/09/2023 11:22 AM Signed Patient calls to report she is currently taking amoxicillin for ear infection from on 12/07/2023. Patient reports that she has developed a yeast infection as she always does with antibiotics and asking if provider would send in a prescription for Diflucan to [facility]. Please review and advise, JUAN Katz Christopher B, MD 12/09/2023 11:39 AM Signed Rx sent. Call for OV if symptoms do not improve after 2nd dose. Florencia Mcdaniel OCCA 12/09/2023 11:54 AM Signed TC to patient who is informed of below. LEXIS Montano Allergies As of Date: 12/09/2023 Noted Allergy Reaction ADHESIVE TAPE (ROSINS) 12/19/2005 2 - Rash PERCOCET (OXYCODONE-ACETAMINOPHEN )05/15/2015 9 - Itching Date Reviewed: 12/07/2023 Reviewed by: Bethany Prather LPN - Fully Assessed Reason for Visit: Patient Question [1477] Order(s):fluconazole (DIFLUCAN) 150 mg tabletTake 1 tablet by mouth one time only for 1 dose. Repeat in 3 days as needed.Disp: 2 tabletRfl: 0 Prescriptions as of 12/09/2023 - fluconazole (DIFLUCAN) 150 mg tablet Take 1 tablet by mouth one time only for 1 dose. Repeat in 3 days as needed. - amoxicillin (AMOXIL) 875 mg tablet Take 1 tablet by mouth two times a day for 7 days. - valACYclovir (VALTREX) 1 gram tablet Take 1,000 mg by mouth as needed (outbreak). - meloxicam (MOBIC) 15 mg tablet Take 15 mg by mouth once daily. As needed - sertraline (ZOLOFT) 50 mg tablet Take 1 tablet by mouth once daily. Problem List As Of Date 12/09/2023 Noted Resolved Bipolar I disorder, most recent episode (or cur* 07/27/2021 HERPES ZOSTER NOS [B02.9] Dry Cough [R05.8] 03/02/2009 Migraine [G43.909] 08/23/2009 Internal hemorrhoids without mention of complic*04/26/2011 Thrombosed external hemorrhoid [K64.5] 07/27/2011 Thrombosed hemorrhoids [K64.5] 04/09/2012 Hemorrhoids, internal [K64.8] 06/19/2016 Pulmonary embolus (HCC) [I26.99] 06/14/2017 Lumbar strain, subsequent encounter [S39.012D] 10/13/2018 Situational mixed anxiety and depressive disord*10/16/2019 Generalized anxiety disorder with panic attacks*10/16/2019 Ovarian cyst, left [N83.202] 05/19/2021 Recurrent major depressive disorder, in full re*07/27/2021 Prescriptions ordered this encounter Disp Refills Start End FLUCONAZOLE 150 MG TABLET 2 ta* 0 12/09/2023 12/09/2023 Route: ORAL Sig: Take 1 tablet by mouth one time only for 1 dose. Repeat in 3 days as needed. Medications Discontinued During This Encounter Prescriptions - fluconazole (DIFLUCAN) 150 mg tablet (Discontinued) Take 1 tablet by mouth one time only for 1 dose. Repeat in 3 days as needed. Encounter Status:Closed by FLORENCIA MCDANIEL on 12/09/23 Normal [facility] CNOVon 12-07-2023 CNOV Office Visit (UCWSTR ) -------- HARRISON GUIDO ([id number]) 1975 F Date Time Provider Department 12/07/23 10:30 AM CORA BARKSDALE [facility] During your visit today, we recorded the following information about you: Temperature Pulse Respiration Blood pressure 96.8 degrees 74/minute 20/minute 112/81 Weight 77 kg Cora Barksdale APRN.[facility] CODER 12/07/2023 11:12 AM Signed Subjective Ear Pain Associated symptoms include congestion and headaches. Pertinent negatives include no chills, coughing, fever, myalgias or sore throat. Sinus Problem Associated symptoms include congestion and headaches. Pertinent negatives include no chills, coughing, fever, myalgias or sore throat. Harrison Guido is a 48 year old female who presents with right ear pain for the past 2 days. She states she cannot hear out of her left ear and it feels clogged. She has not had a fever. She has had a headache and nasal congestion due to a cold for the past month. She has taken zyrtec at home. Review of Systems Constitutional: Negative for chills, fever and malaise/fatigue. HENT: Positive for congestion, ear pain and hearing loss. Negative for ear discharge and sore throat. Respiratory: Negative for cough. Cardiovascular: Negative. Musculoskeletal: Negative for myalgias. Neurological: Positive for headaches. BP 112/81 Pulse 74 Temp 36 ?C (96.8 ?F) Resp 20 Wt 77 kg (169 lb 12.1 oz) LMP 10/04/2022 (Exact Date) SpO2 99% BMI 26.19 kg/m? PAST MEDICAL HISTORY Diagnosis Date Abnormal uterine bleeding Acute pain of left shoulder Dr. Vera-Ezequiel Allergic rhinitis, cause unspecified Cyst of left ovary BRANDON (generalized anxiety disorder) Herpes zoster without complication Recurrent. Trillium Ewiiaapaayp Herpes zoster without mention of complication face Lateral epicondylitis of left elbow Migraine without aura Other hemorrhoids Pulmonary embolism (HCC) after ACL repair Recurrent major depressive disorder, in full remission (HCC) Umbilical hernia PAST SURGICAL HISTORY Procedure Laterality Date BREAST AUGMENTATION WITH IMPLANT Bilateral 2020 BREAST AUGMENTATION WITH IMPLANT 2011 COLONOSCOPY 10/10/2021 repeat in 10 years COLONOSCOPY W/BIOPSY SINGLE/MULTIPLE 07/05/2010 Normal Colon EGD TRANSORAL BIOPSY SINGLE/MULTIPLE 07/05/2010 Gastritis EXTRACTION, ERUPTED TOOTH OR EXPOSED ROOT (ELEVATION AND/OR FORCEPS REMOVAL) 06/17/2004 PAST SURGICAL HISTORY OF TVT PAST SURGICAL HISTORY OF Left 2018 ACL repair REMOVAL OF OVARY(S) Right benign mass SHX COSMETIC SURGERY 05/2022 Tummy Tuck and hernia repair ALLERGIES Adhesive Tape (Rosins) and Percocet [Oxycodone-Acetaminophen ] MEDICATIONS valACYclovir (VALTREX) 1 gram tablet Take 1,000 mg by mouth as needed (outbreak). meloxicam (MOBIC) 15 mg tablet Take 15 mg by mouth once daily. As needed sertraline (ZOLOFT) 50 mg tablet Take 1 tablet by mouth once daily. FAMILY HISTORY Problem Relation Age of Onset Hypertension Mother Cancer Maternal Grandmother lung, smoker Breast Cancer Maternal Aunt Social History Tobacco Use Smoking status: Never Smokeless tobacco: Never Vaping Use Vaping Use: Never used Substance Use Topics Alcohol use: Not Currently Drug use: No Objective Physical Exam Vitals and nursing note reviewed. Constitutional: General: She is not in acute distress. Appearance: Normal appearance. She is not ill-appearing. HENT: Right Ear: External ear normal. Decreased hearing noted. There is impacted cerumen. Left Ear: Tympanic membrane, ear canal and external ear normal. Ears: Comments: Right ear: Cerumen impairs exam of clinically significant portions of the external auditory canal, tympanic membrane or middle ear condition. Nose: Nose normal. Mouth/Throat: Pharynx: Uvula midline. Cardiovascular: Rate and Rhythm: Normal rate. Pulmonary: Effort: Pulmonary effort is normal. Musculoskeletal: Cervical back: Neck supple. Lymphadenopathy: Cervical: No cervical adenopathy. Skin: General: Skin is warm and dry. Findings: No erythema or rash. Neurological: Mental Status: She is alert. ASSESSMENT/PLAN: 1. Impacted cerumen of right ear - ICD9: 380.4, ICD10: H61.21 (primary diagnosis) - Cerumen removed via irrigation, patient tolerated procedure well. Post procedure right ear canal is clear and TM is well visualized with bony landmarks intact. The TM is erythematous and bulging. 2. Right ear pain - ICD9: 388.70, ICD10: H92.01 - due to cerumen impaction and right otitis media. 3. Decreased hearing of right ear - ICD9: 389.9, ICD10: H91.91 - due to cerumen impaction and right otitis media. 4. Other acute nonsuppurative otitis media of right ear, recurrence not specified - ICD9: 381.00, ICD10: H65.191 - Will begin treatment with as per antibiotic as written, see orders - Supportive care with (more content not included)... Normal [facility] CNOVon 10-22-2023 CNOV Office Visit (PODIWS ) -------- HARRISON GUIDO ([id number]) 1975 F Date Time Provider Department 10/22/23 9:00 AM ROGER HORN PODIWS During your visit today, we recorded the following information about you: Yeni Lucas LPN 10/22/2023 11:29 AM Signed AMB ROOMING INTAKE FLOWSHEET DATA Patient presents with: Left Foot - Established Patient, Follow Up, Nail Fungus Right Foot - Established Patient, Follow Up, Nail Fungus ALEXANDER Marion Matthew 10/22/2023 11:29 AM Signed Consultation requested by Dr. Franklin for an opinion regarding toenail discoloration. My final recommendations will be communicated back to the requesting physician by way of shared Medical record or letter to requesting physician via US mail. Initial Podiatric Office Visit: Chief Complaint: This 47 year old female who presents with chief complaint:nail fungus of multiples toes HPI Patient presents to clinic for evaluation of b/l feet Complains of nail discoloration of b/l 1st and 2nd toenail. Has noticed the discoloration for approximately 1 month Denies any pain currently. Has bunions but no pain. PAIN EVALUATION No data found in the last 1 encounters. No results found for: HBA1C PCP: Ganesh Winter MD PAST MEDICAL HISTORY Diagnosis Date Abnormal uterine bleeding Acute pain of left shoulder Dr. Vera-Ortho Allergic rhinitis, cause unspecified Cyst of left ovary BRANDON (generalized anxiety disorder) Herpes zoster without complication Recurrent. Trillium Ewiiaapaayp Herpes zoster without mention of complication face Lateral epicondylitis of left elbow Migraine without aura Other hemorrhoids Pulmonary embolism (HCC) after ACL repair Recurrent major depressive disorder, in full remission (HCC) Umbilical hernia Current Outpatient Medications Medication Sig valACYclovir (VALTREX) 1 gram tablet Take 1,000 mg by mouth as needed (outbreak). meloxicam (MOBIC) 15 mg tablet Take 15 mg by mouth once daily. As needed sertraline (ZOLOFT) 50 mg tablet Take 1 tablet by mouth once daily. No current facility-administered medications for this visit. ALLERGIES Allergen Reactions Adhesive Tape (Pina* Rash Percocet [Oxycodone* Itching PAST SURGICAL HISTORY Procedure Laterality Date BREAST AUGMENTATION WITH IMPLANT Bilateral 2020 BREAST AUGMENTATION WITH IMPLANT 2011 COLONOSCOPY 10/10/2021 repeat in 10 years COLONOSCOPY W/BIOPSY SINGLE/MULTIPLE 07/05/2010 Normal Colon EGD TRANSORAL BIOPSY SINGLE/MULTIPLE 07/05/2010 Gastritis EXTRACTION, ERUPTED TOOTH OR EXPOSED ROOT (ELEVATION AND/OR FORCEPS REMOVAL) 06/17/2004 PAST SURGICAL HISTORY OF TVT PAST SURGICAL HISTORY OF Left 2018 ACL repair REMOVAL OF OVARY(S) Right benign mass SHX COSMETIC SURGERY 05/2022 Tummy Tuck and hernia repair FAMILY HISTORY Problem Relation Age of Onset Hypertension Mother Cancer Maternal Grandmother lung, smoker Breast Cancer Maternal Aunt Social History Tobacco Use Smoking status: Never Smokeless tobacco: Never Vaping Use Vaping Use: Never used Substance Use Topics Alcohol use: Not Currently Drug use: No REVIEW OF SYSTEMS GENERAL: Negative for Malaise, significant weight loss, fever RESPIRATORY: Negative for cough, wheezing and shortness of breath CARDIOVASCULAR: Negative for chest pain, leg swelling and palpitations GI: Negative for abdominal discomfort, blood in stools or black stools and change in bowel habits : Negative for dysuria, frequency and incontinence MUSCULOSKELETAL: Negative for joint pain or swelling, back pain, and muscle pain. SKIN: Negative for lesions, rash, and itching. HEMATOLOGY/LYMPHOLOGY Negative for prolonged bleeding, bruising easily, and swollen nodes. ENDOCRINE: Negative for cold or heat intolerance, polyuria, polydipsia and goiter. NEURO: negative Physical Exam: Constitutional: Pt is a well developed 47 year old female who is alert, oriented and cooperative Eyes: Following during examination. No redness or drainage. Respiratory: RR normal and nonlabored. Even breathing. No evidence of distress or shortness of breath. Psychology: Patient is engaged during conversation. Normal affect and mood. Does not appear depressed or anxious during encounter. Vascular: Dorsalis pedis and posterior tibial pulses palpable as b/l Capillary Fill time < 5 seconds to digits 1-5 b/l Skin temperature warm to warm proximal to distal b/l Hair growth present to digits Neurological: intact light touch/epicritic sensation b/l intact protective sensation no significant neurological deficits Dermatological: Nails 1,2 b/l appear slightly thick and discolored. Webspaces clean and dry 1-4 b/l. Skin appears well hydrated and supple. good color, texture, turgor. No open lesions present. No callosities present. Musculoskeletal/Orthopae dic: Patient has no (more content not included)... Normal [facility] Microorganism Spec Culton Microorganism identified Cx Nom (Unsp spec) ORGANISM ID: 1 Rare Alternaria species By MALDI TOF Mass Spectrometry. Morphology 1 No Dermatophytes isolated after 28 days. ORGANISM ID: 2 Rare Alternaria species By microscopic morphology. Morphology 2 ORGANISM ID: 3 One colony Epicoccum species By microscopic morphology FUNGAL SMEAR: No fungus seen Abnormal [facility] Comment on above: Performed By: #### 1 1475-1 #### [facility] CLIA [id number] [address] [place] [address] [place] CNOVon 10-05-2023 CNOV Office Visit (UCWSTR ) -------- HARRISON GUIDO ([id number]) 1975 F Date Time Provider Department 10/05/23 10:30 AM JUANA FRANKLIN UCWSTR During your visit today, we recorded the following information about you: Temperature Pulse Respiration Blood pressure 97.3 degrees 123/minute 16/minute 138/76 Weight 76.5 kg Juana Franklin PA-C 10/05/2023 10:[address] Erin Connor [address] [place] [address] PCP Juana Franklin PA-C 10/05/2023 11:06 AM Signed This note was created using igobubbleriter. Subjective Harrison Guido is a 47 year old female. HPI Presents with a chief complaint of toenail pain. She states her left toenail has been bothering her over the past 2 days. She had looked at it and thought maybe she had a fungal nail as well. She does get her nails done with gel at the nail salon. She did recently take a trip to [facility] and did get her nails done there. She also had showered in a campground shower while there. She has multiple nails that she has noticed some discoloration on both feet. No drainage from the nail. She has not noticed any redness or swelling. Review of Systems Constitutional: Negative. HENT: Negative. Respiratory: Negative. Cardiovascular: Negative. Gastrointestinal: Negative. Musculoskeletal: Toenail pain All other systems reviewed and are negative. PAST MEDICAL HISTORY Diagnosis Date Abnormal uterine bleeding Acute pain of left shoulder Dr. Vera-Ezequiel Allergic rhinitis, cause unspecified Cyst of left ovary BRANDON (generalized anxiety disorder) Herpes zoster without complication Recurrent. Trillium Ewiiaapaayp Herpes zoster without mention of complication face Lateral epicondylitis of left elbow Migraine without aura Other hemorrhoids Pulmonary embolism (HCC) after ACL repair Recurrent major depressive disorder, in full remission (HCC) Umbilical hernia Current Outpatient Medications Medication Sig Dispense Refill valACYclovir (VALTREX) 1 gram tablet Take 1,000 mg by mouth as needed (outbreak). meloxicam (MOBIC) 15 mg tablet Take 15 mg by mouth once daily. As needed sertraline (ZOLOFT) 50 mg tablet Take 1 tablet by mouth once daily. 90 tablet 3 No current facility-administered medications for this visit. PAST SURGICAL HISTORY Procedure Laterality Date BREAST AUGMENTATION WITH IMPLANT Bilateral 2020 BREAST AUGMENTATION WITH IMPLANT 2011 COLONOSCOPY 10/10/2021 repeat in 10 years COLONOSCOPY W/BIOPSY SINGLE/MULTIPLE 07/05/2010 Normal Colon EGD TRANSORAL BIOPSY SINGLE/MULTIPLE 07/05/2010 Gastritis EXTRACTION, ERUPTED TOOTH OR EXPOSED ROOT (ELEVATION AND/OR FORCEPS REMOVAL) 06/17/2004 PAST SURGICAL HISTORY OF TVT PAST SURGICAL HISTORY OF Left 2018 ACL repair REMOVAL OF OVARY(S) Right benign mass SHX COSMETIC SURGERY 05/2022 Tummy Tuck and hernia repair FAMILY HISTORY Problem Relation Age of Onset Hypertension Mother Cancer Maternal Grandmother lung, smoker Breast Cancer Maternal Aunt Social History Tobacco Use Smoking status: Never Smokeless tobacco: Never Vaping Use Vaping Use: Never used Substance Use Topics Alcohol use: Not Currently Drug use: No Objective BP 138/76 Pulse (!) 123 Temp 36.3 ?C (97.3 ?F) Resp 16 Wt 76.5 kg (168 lb 10.4 oz) LMP 10/04/2022 (Exact Date) SpO2 98% BMI 26.02 kg/m? Physical Exam Vitals reviewed. Constitutional: Appearance: Normal appearance. HENT: Head: Normocephalic and atraumatic. Feet: Comments: Patient has multiple thickened discolored nails on both feet. She does have a gel manicure on currently as well. No erythema or swelling of the skin surrounding the nail or sign of secondary bacterial infection. Skin: General: Skin is warm and dry. Neurological: Mental Status: She is alert. Assessment and Plan ASSESSMENT/PLAN: 1. Toenail fungus - ICD9: 110.1, ICD10: B35.1 Discussed with patient she may need oral antifungals due to this being on several nails. I did recommend having the gel manicure removed and will have her follow-up with podiatry. - CONSULT TO PODIATRY Juana Franklin PA-C Allergies As of Date: 10/05/2023 Noted Allergy Reaction ADHESIVE TAPE (ROSINS) 12/19/2005 2 - Rash PERCOCET (OXYCODONE-ACETAMINOPHEN )05/15/2015 9 - Itching Date Reviewed: 10/05/2023 Reviewed by: Ashtyn Ghosh - Fully Assessed Reason for Visit: Ingrown Toenail [111] Primary Visit Diagnosis:Toenail fungus [B35.1] Order(s):CONSULT TO PODIATRY [3356] Order #: [id number]: 1 FUTURE Prescriptions as of 10/05/2023 - valACYclovir (VALTREX) 1 gram tablet Take 1,000 mg by mouth as needed (outbreak). - meloxicam (MOBIC) 15 mg tablet Take 15 mg by mouth once daily. As needed - sertraline (ZOLOFT) 50 mg tablet Take 1 tablet by mouth once daily. Problem List As Of Date 10/05/2023 Noted Resolved Bipolar I disorder, most recent (more content not included)... Normal [facility] No Panel Informationon 08-08 [facility] ECG COMPLETEon 04-30-2022 Atrial Rate 76 BPM [facility] Calculated P [place] 65 degrees [facility] Calculated R [place] 82 degrees [facility] Calculated T [place] 48 degrees [facility] P-R Interval 168 ms [facility] QRS Duration 74 ms [facility] QT Interval 372 ms [facility] QTC Calculation (Bazett) 418 ms [facility] Ventricular Rate 76 BPM [facility] CBC panel Auto (Bld)on 04-25 Erythrocyte distribution width (RBC) [Ratio] 15.2 % High 11.5 - 15.0 % [facility] Hematocrit (Bld) [Volume fraction] 42.2 % 36.0 - 46.0 % [facility] Hemoglobin (Bld) [Mass/Vol] 13.7 g/dL 11.5 - 15.5 g/dL [facility] MCH (RBC) [Entitic mass] 32.3 pg 26.0 - 34.0 pg [facility] MCHC (RBC) [Mass/Vol] 32.5 g/dL 30.5 - 36.0 g/dL [facility] MCV (RBC) [Entitic vol] 99.5 fL 80.0 - 100.0 fL [facility] Nucleated RBC (Bld) [#/Vol] <0.01 k/uL [facility] Platelet mean volume (Bld) [Entitic vol] 11.7 fL 9.0 - 12.7 fL [facility] Platelets (Bld) [#/Vol] 264 10*3/uL 150 - 400 k/uL [facility] RBC (Bld) [#/Vol] 4.24 10*6/uL 3.90 - 5.2 0 m/uL [facility] WBC (Bld) [#/Vol] 11.52 10*3/uL High 3.70 - 11.00 k/uL [facility] Comprehensive metabolic 2000 panelon 04-25-2022 Albumin [Mass/Vol] 4.3 g/dL 3.9 - 4.9 g/dL [facility] ALP [Catalytic activity/Vol] 45 U/L 34 - 123 U/L [facility] ALT [Catalytic activity/Vol] 24 U/L 7 - 38 U/L [facility] Anion gap [Moles/Vol] 12 mmol/L 9 - 18 mmol/L [facility] AST [Catalytic activity/Vol] 28 U/L 13 - 35 U/L [facility] Bilirubin [Mass/Vol] 0.2 mg/dL 0.2 - 1 .3 mg/dL [facility] Calcium [Mass/Vol] 9.5 mg/dL 8.5 - 10. 2 mg/dL [facility] Chloride [Moles/Vol] 101 mmol/L 97 - 10 5 mmol/L [facility] CO2 [Moles/Vol] 23 mmol/L 22 - 30 mmol/L [facility] Creatinine [Mass/Vol] 0.91 mg/dL 0.58 - 0.96 mg/dL [facility] Estimated Glomerular Filtration Rate 78 mL/min/1.73m >=60 mL/min/1.73 m [facility] Glucose [Mass/Vol] 58 mg/dL Low 74 - 99 mg/dL [facility] Potassium [Moles/Vol] 4.3 mmol/L 3.7 - 5.1 mmol/L [facility] Protein [Mass/Vol] 6.8 g/dL 6.3 - 8.0 g/dL [facility] Sodium [Moles/Vol] 136 mmol/L 136 - 144 mmol/L [facility] Urea nitrogen [Mass/Vol] 17 mg/dL 7 - 21 mg/dL [facility] HCG QUAL UR B/Oon 04-24-2022 status Negative neg - pos [place] [facility] Quality Check Yes [facility] XR CHEST 2V FRONTAL/LATon [facility] XR Chest PA and Lateralon IMPRESSION: Stable chest. No acute cardiopulmonary process. Computer Support Technician: PSCB Transcribe Date/Time: Apr 24 2022 3:13P Dictated by : ML CHONG MD This examination was interpreted and the report reviewed and electronically signed by: ML CHONG MD on Apr 24 2022 3:21PM [facility] DIVISION OF RADIOLOGY * * *Final Report* * * DATE OF EXAM: Apr 24 2022 3:10PM WOX [id number] - XR CHEST 2V FRONTAL/LAT / PROCEDURE REASON: Pre-op evaluation * * * * Physician Interpretation * * * * EXAMINATION: CHEST RADIOGRAPH (2 VIEW FRONTAL & LATERAL) CLINICAL HISTORY: Pre-op evaluation MQ: XC2_6 EXAM DATE/TIME: 04/24/2022 3:10 PM COMPARISON: Comparison is made to prior PA chest dated 27 March 2011 RESULT: Lines, tubes, and devices: None. Lungs and pleura: There is no focal consolidation or acute pleural process/fluid. There is no vascular redistribution to suggest pulmonary edema. Cardiomediastinal silhouette: The cardiac, mediastinal and hilar shadows are unchanged and remain within normal limits. Bones/soft tissues: The bony structures are intact with mild degenerative change. No bony destructive process noted. DIVISION OF RADIOLOGY [facility] 04/24/2022 * * *Final Report* * * DATE OF EXAM: Apr 24 2022 3:10PM WOX [id number] - XR CHEST 2V FRONTAL/LAT / PROCEDURE REASON: Pre-op evaluation * * * * Physician Interpretation * * * * EXAMINATION: CHEST RADIOGRAPH (2 VIEW FRONTAL & LATERAL) CLINICAL HISTORY: Pre-op evaluation MQ: XC2_6 EXAM DATE/TIME: 04/24/2022 3:10 PM COMPARISON: Comparison is made to prior PA chest dated 27 March 2011 RESULT: Lines, tubes, and devices: None. Lungs and pleura: There is no focal consolidation or acute pleural process/fluid. There is no vascular redistribution to suggest pulmonary edema. Cardiomediastinal silhouette: The cardiac, mediastinal and hilar shadows are unchanged and remain within normal limits. Bones/soft tissues: The bony structures are intact with mild degenerative change. No bony destructive process noted. IMPRESSION IMPRESSION: Stable chest. No acute cardiopulmonary process. Computer Support Technician: ELIS Transcribe Date/Time: Apr 24 2022 3:13P Dictated by : ML CHONG MD This examination was interpreted and the report reviewed and electronically signed by: ML CHONG MD on Apr 24 2022 3:21PM EST [facility] Radiology Study observation (narrative) [facility] XR Chest PA and LateralOrder ed By: [facility] Provider on 04-24-2022 [facility] No Panel Informationon 10-10 [facility] US BREAST LTD LTon [facility] MA Mamm Screen w/CAD if perf ormed bilaton 02-12-2017 Bilirubin (direct) Exam Date/Time:2016 13:58 EDTReason for Exam:SCREENING;Screening ReportBILATERAL DIGITAL SCREENING MAMMOGRAM, CAD:REASON FOR EXAM: SCREENING.COMPARISON: Attempt to locate previous study from 2011 was not successful. Noprior studies are currently available for comparison.TECHNIQUE: Bilateral craniocaudal and mediolateral oblique projections wereobtained with additional CAD evaluation. Additional implant displacement CC andMLO views were obtained.FINDINGS:BREAST COMPOSITION: Heterogeneous fibroglandular tissue density pattern isnoted which can obscure small masses.No new mass, malignant-type calcifications, architectural distortion, or otherinterval change is seen, to suggest malignancy.There are a few benign-appearing calcifications seen. Mild focal areas ofglandular asymmetry are present.Bilateral intact smooth contoured retropectoral breast implants are present.IMPRESSION:Bilat eral intact breast implants. No mass or suggestion of malignancy.BI-RADS 2 - Benign, no evidence of malignancy. Normal interval followup isrecommended in 12 months.OVERALL ASSESSMENT- BENIGNA letter of notification will be sent to the patient regarding the results.Assessment / Recommendation: 2-1 Normal interval follow-upBreast density: Heterogeneously DenseExam Date/Time:01/29/2017 13:58 EDTReportRecall interval: 012 months FINAL REPORT Dictated: 02/12/2017 10:15 am Vin Liang DOSigned (Electronic Signature): 02/12/2017 10:15 amSigned by: Vin Liang DO Technologist: CECAssessment: BI-RADS Category 2-Benign findingRecommendation: Normal interval follow-up Normal [facility] Auto Diffon 02-07-2017 Basophils Auto #/vol (Bld) 0.0 E3/mcL Normal 0.0-0.2 [facility] Comment on above: Order Comment: Order Added by Discern Expert. Performed By: #### 2 [id number] ####LAYNE EtnWsyo6219 [place] [address] Basophils/100 WBC Auto (Bld) 0.5 % Normal 0.0-2.0 [facility] Comment on above: Order Comment: Order Added by Discern Expert. Performed By: #### 2 [id number] ####LAYNE LbsFqac9041 [place] [address] Eos Absolute 0.1 E3/mcL Normal 0.0-0.7 [facility] Comment on above: Order Comment: Order Added by Discern Expert. Performed By: #### 2 [id number] ####LAYNERolando TorresGjjUkyn5316 [place] [address] Eosinophils/100 leukocytes 1.0 % Normal 0.0-11.0 [facility] Comment on above: Order Comment: Order Added by Discern Expert. Performed By: #### 2 [id number] ####LAYNE DeiXbrg4151 [place] [address] Lymphocytes 1.6 E3/mcL Normal 1.2-3.4 [facility] Comment on above: Order Comment: Order Added by Discern Expert. Performed By: #### 2 [id number] ####LAYNE NoiKgci5475 [place] [address] Lymphocytes/100 leukocytes 19.1 % Low 20.0-55.0 [facility] Comment on above: Order Comment: Order Added by Discern Expert. Performed By: #### 2 [id number] ####LAYNE WzzAyaj7674 [place] [address] Cotton Absolute 0.6 E3/mcL Normal 0.0-0.7 [facility] Comment on above: Order Comment: Order Added by Discern Expert. Performed By: #### 2 [id number] ####LAYNERolando TorresWloDhpm8486 [place] [address] Monocytes/100 leukocytes 7.0 % Normal 0.0-10.0 [facility] Comment on above: Order Comment: Order Added by Discern Expert. Performed By: #### 2 [id number] ####LAYNERolando TorresCvxVynj9827 [place] [address] Neutro Absolute 6.1 E3/mcL Normal 1.4-6.5 [facility] Comment on above: Order Comment: Order Added by Discern Expert. Performed By: #### 2 [id number] ####LAYNERolando TorresBsxDowc3247 [place] [address] Neutro Auto 72.4 % Normal 37.0-75.0 [facility] Comment on above: Order Comment: Order Added by Discern Expert. Performed By: #### 2 [id number] ####LAYNERolando TorresIjyToaq1494 [place] [address] BhCG Qualon 02-07-2017 HCG.beta subunit Qn Negative Normal Negative [facility] Comment on above: Performed By: #### 2 [id number] ####LAYNE Chemistry Manual Wqkgxxtwzw7660 [place] [id number] CBC w/ Auto Diffon 7 Erythrocyte distribution width Auto Ratio (RBC) 18.0 % High 11.5-14.5 [facility] Comment on above: Performed By: #### 2 [id number] ####LAYNERolando TorresTrqTpal8640 [place] [address] Erythrocytes (RBC) 4.22 E6/mcL Normal 3.90-5.40 [facility] Comment on above: Performed By: #### 2 [id number] ####LAYNERolando TorresPowPbjv6278 [place] [address] Hematocrit (HCT) 36.4 % Normal 36.0-48.0 [facility] Comment on above: Performed By: #### 2 [id number] ####LAYNE TorresKjhTxur2806 [place] [address] Hemoglobin mass conc (Bld) 11.8 g/dL Low 12.0-16.0 [facility] Comment on above: Performed By: #### 2 [id number] ####LAYNE TorresPwiZaog2477 [place] [id number] MCH 28.0 pg Normal 27.0-31.0 [facility] Comment on above: Performed By: #### 2 [id number] ####LAYNE Redo1025 [place] [id number] MCHC mass conc (RBC) 32.5 g/dL Low 33.0-37.0 [facility] Comment on above: Performed By: #### 2 [id number] ####LAYNE Redo1025 [place] [address] MCV 86.2 fL Normal 78.0-100.0 [facility] Comment on above: Performed By: #### 2 [id number] ####LAYNE Redo1025 [place] [address] Platelet mean volume (PMV) 8.8 fL Normal 7.4-11.0 [facility] Comment on above: Performed By: #### 2 [id number] ####LAYNE Redo1025 [place] [address] Platelets 279 E3/mcL Normal 130-400 [facility] Comment on above: Performed By: #### 2 [id number] ####LAYNE Redo1025 [place] [id number] WBC (Leukocytes) 8.5 E3/mcL Normal 3.6-11.0 [facility] Comment on above: Performed By: #### 2 [id number] ####LAYNE Redo1025 [place] [address] Morphon 02-07-2017 Erythrocyte morphology SEE MORPHOLOGY Normal [facility] Comment on above: Order Comment: Order Added by Discern Expert. Performed By: #### 1 [id number] ####LAYNE Redo1025 [place] [address] Ovalocytes 1+ Normal [facility] Comment on above: Order Comment: Order Added by Discern Expert. Performed By: #### 1 [id number] ####LAYNE Redo1025 [place] [address] zzplt morphon 02-07-2017 Platelet morphology NORMAL Normal [facility] Comment on above: Performed By: #### 9 [id number] ####LAYNE TorresDmdKuus3147 [place] [address] Platelets NORMAL [facility] Comment on above: Performed By: #### 9 [id number] ####LAYNE ZfcNsbf0872 [place] [id number] US Pelvis Non-OB Completeon 01-08-2017 US Pelvis Non-OB Complete Exam Date/Time:01/08/2017 13:31 EDTReason for Exam:ABNORMAL VAGINAL BLEEDING;Abnormal vaginal bleedingReportEXAM: US PELVIS NON-OB COMPLETE, US TRANSVAGINAL NON-OBREASON FOR EXAM: Abnormal vaginal bleeding. Dyspareunia.TECHNIQUE: Transabdominal and transvaginal probe puckett-scale and color Dopplerscanning of the pelvis.COMPARISON: None.FINDINGS: Uterus is seen to be nonenlarged measuring 84 mm x 59 mm x 42 mm. Theendometrial thickness is satisfactory at 9 mm. No endometrial canal fluid isapparent. Major contour abnormality is not apparent. There is a posterioruterine fundal hypoechoic focus of 10 x 7 mm which may reflect a small uterinefibroid. Other focal echogenic abnormality is not identified. There areprominent nabothian cervical cystic changes seen with the largest measuring 14mm.The right ovary is not identified consistent with surgical history. No rightadnexal mass or cystic fluid is seen.Left ovary is seen measuring 40 x 30 x 16 mm without dominant cystic change.There is satisfactory color Doppler and spectral flow without evidence oftorsion. The resistive index is 0.50.No cul-de-sac or free pelvic fluid is identified.IMPRESSION:No major uterine enlargement or endometrial thickening is seen. A small uterinefundal 10 x 7 mm hypodensity may reflect a small uterine fibroid. No adnexalmass or dominant cystic change is seen. Prominent nabothian cervical cysticchanges are noted. FINAL REPORT Dictated: 01/08/2017 4:08 pm Vin Liang DOSigned (Electronic Signature): 01/08/2017 4:08 pmSigned by: Vin Liang DO Technologist: MARILYN Normal [facility] US Transvaginal Non-OBon US Transvaginal Non-OB Exam Date/Time: 13:31 EDTReason for Exam:ABNORMAL VAGINAL BLEEDING;Abnormal vaginal bleedingReportEXAM: US PELVIS NON-OB COMPLETE, US TRANSVAGINAL NON-OBREASON FOR EXAM: Abnormal vaginal bleeding. Dyspareunia.TECHNIQUE: Transabdominal and transvaginal probe puckett-scale and color Dopplerscanning of the pelvis.COMPARISON: None.FINDINGS: Uterus is seen to be nonenlarged measuring 84 mm x 59 mm x 42 mm. Theendometrial thickness is satisfactory at 9 mm. No endometrial canal fluid isapparent. Major contour abnormality is not apparent. There is a posterioruterine fundal hypoechoic focus of 10 x 7 mm which may reflect a small uterinefibroid. Other focal echogenic abnormality is not identified. There areprominent nabothian cervical cystic changes seen with the largest measuring 14mm.The right ovary is not identified consistent with surgical history. No rightadnexal mass or cystic fluid is seen.Left ovary is seen measuring 40 x 30 x 16 mm without dominant cystic change.There is satisfactory color Doppler and spectral flow without evidence oftorsion. The resistive index is 0.50.No cul-de-sac or free pelvic fluid is identified.IMPRESSION:No major uterine enlargement or endometrial thickening is seen. A small uterinefundal 10 x 7 mm hypodensity may reflect a small uterine fibroid. No adnexalmass or dominant cystic change is seen. Prominent nabothian cervical cysticchanges are noted. FINAL REPORT Dictated: 01/08/2017 4:08 pm Vin Liang DOSigned (Electronic Signature): 01/08/2017 4:08 pmSigned by: Vin Liang DO Technologist: MARILYN Normal [facility] Lab Miscellaneouson 01-02-20 17 Status See Ref Lab Report Normal [facility] Comment on above: Order Comment: Last menstrual cycle 11/17/16 Performed By: #### 1 [id number] ####LAYNE Send Outs Fipvhgvnrz3862 [place] [address] Lab Miscellaneouson 12-20-19 17 Status See Ref Lab Report Normal [facility] Comment on above: Performed By: #### 1 [id number] ####LAYNE Send Outs Fgscgpsxqh7738 [place] [id number] Lab Miscellaneouson 12-15-19 17 Test Name Pap Smear Normal [facility] Comment on above: Order Comment: Last menstrual cycle 11/17/16 Performed By: #### 1 [id number] ####LAYNE Send Outs Qhqolwdllk7373 [place] [address] Test Name VAGINOSIS Normal [facility] Comment on above: Performed By: #### 1 [id number] ####LAYNE Send Outs Fhfnbazgkc8257 [place] [address] Pathology ([facility])on 12-14-2016 Pathology ([facility]) FINAL GYNECOLOGIC CYTOLOGY [id number] ADEQUACYSatisfactory for Evaluation. Endocervical cells/transformation zone componentpresent.Sample is obscured by blood.GENERAL CATEGORIZATIONEpithelial Cell AbnormalityDESCRIPTIVE DIAGNOSISAtypical squamous cells of undetermined significance.Shift in vaginal thomas suggestive of bacterial vaginosis.COMMENTHigh Risk HPV was ordered and performed at [facility] Laboratory. Results arereported below in this report. A negative result is a normal result. Apositive result is an abnormal result.HPV HIGH RISK NEGATIVE: The results of this test indicate the patient'sspecimen is NEGATIVE for the following high-risk HPV types:16/18/31/33/35/39/ 45/51/52/56/58/59/66/68. RELATED LABORATORY RESULTSOrdered by: Trip Date: 12/14/2016 Ord Time: 19:45Test Collected Result Abnormal Range Units SpecimenName D&T TypeHPV Negative NA MSCRNA, 7HighRiskThe HPV test detects E6/E7 viral messenger RNA (mRNA) high-risk HPV drxcntlqe45,18,31,33,35, 39,45,51,55,58,59,66, and 68 which are associated with cervicalcancer and its precursor lesions. However, cross-reactions with othergenotypes may occur. Results should be correlated with cytologic andhistologic findings. Sensitivity may be affected by cellularity of specimen.CLINICAL HISTORYLMP: 11/17/2016SPECIMEN(A) SCREENING CERVICAL/ENDOCERVICAL LIQUID-BASED PAPPerformed at [facility], [address] [place], [place] [address]Screened by: SHEILA FERNANDEZ, Signed Out by:Outdoor Adventure Instructor MILANA THOMAS MD Reported: 12/31/2016 Normal [facility] Healthcare Comment on above: Performed By: #### G YN ####[facility] [address] [place] [address] Vital Signs Date Time Vital Sign Value Performing Clinician Shaun ramon 12-07-2023 10:37-0400 Body mass index (BMI) [Ratio] 26.19 kg/m2 Cora Praisler-Wood ROVER TENDER.CPC CODER Work Phone: [facility] 12-07-2023 10:37-0400 Body temperature 96.8 [degF] Cora Praisler-Wood ROVER TENDER.CPC CODER Work Phone: [facility] 12-07-2023 10:37-0400 Body weight 77 kg Cora Praisler-Wood ROVER TENDER.CPC CODER Work Phone: [facility] 12-07-2023 10:37-0400 Diastolic blood pressure 81 mm[Hg] Cora Praisler-Wood ROVER TENDER.CPC CODER Work Phone: [facility] 12-07-2023 10:37-0400 Heart rate 74 /min Cora Praisler-Wood ROVER TENDER.CPC CODER Work Phone: [facility] 12-07-2023 10:37-0400 Respiratory rate 20 /min Cora Praisler-Wood ROVER TENDER.CPC CODER Work Phone: [facility] 12-07-2023 10:37-0400 SaO2% (BldA) [Mass fraction] 99 % Cora Praisler-Wood ROVER TENDER.CPC CODER Work Phone: [facility] 12-07-2023 10:37-0400 Systolic blood pressure 112 mm[Hg] Cora Praisler-Wood ROVER TENDER.CPC CODER Work Phone: [facility] 10-05-2023 10:35-0400 Body temperature 97.3 [degF] Juana Franklin PA-C Work Phone: [facility] 10-05-2023 10:35-0400 Body weight 76.5 kg Juana Franklin PA-C Work Phone: [facility] 10-05-2023 10:35-0400 Diastolic blood pressure 76 mm[Hg] Juana Athy PA-C Work Phone: [facility] 10-05-2023 10:35-0400 Heart rate 123 /min Juana Athy PA-C Work Phone: [facility] 10-05-2023 10:35-0400 Respiratory rate 16 /min Juana Athy PA-C Work Phone: [facility] 10-05-2023 10:35-0400 SaO2% (BldA) [Mass fraction] 98 % Juana Athy PA-C Work Phone: [facility] 10-05-2023 10:35-0400 Systolic blood pressure 138 mm[Hg] Juana Athy PA-C Work Phone: [facility] 07-30-2023 11:12-0500 Body temperature 98.01 [degF] Ganesh Winter MD Work Phone: [facility] 07-30-2023 11:12-0500 Diastolic blood pressure 68 mm[Hg] Ganesh Winter MD Work Phone: [facility] 07-30-2023 11:12-0500 Heart rate 77 /min Ganesh Winter MD Work Phone: [facility] 07-30-2023 11:12-0500 Respiratory rate 16 /min Ganesh Winter MD Work Phone: [facility] 07-30-2023 11:12-0500 SaO2% (BldA) [Mass fraction] 97 % Ganesh Winter MD Work Phone: [facility] 07-30-2023 11:12-0500 Systolic blood pressure 108 mm[Hg] Ganesh Winter MD Work Phone: [facility] 05-23-2023 08:55-0500 Body height 171.5 cm Indu Foley ROVER TENDER.CPC CODER Work Phone: [facility] 05-23-2023 08:55-0500 Body temperature 97.9 [degF] Indu Podlogar ROVER TENDER.CPC CODER Work Phone: [facility] 05-23-2023 08:55-0500 Body weight 74.12 kg Indu Podlogar ROVER TENDER.CPC CODER Work Phone: [facility] 05-23-2023 08:55-0500 Diastolic blood pressure 76 mm[Hg] Indu Podlogar ROVER TENDER.CPC CODER Work Phone: [facility] 05-23-2023 08:55-0500 Heart rate 72 /min Indu Podlogar ROVER TENDER.CPC CODER Work Phone: [facility] 05-23-2023 08:55-0500 Respiratory rate 16 /min Indu Podlogar ROVER TENDER.CPC CODER Work Phone: [facility] 05-23-2023 08:55-0500 SaO2% (BldA) [Mass fraction] 97 % Indu Podlogar ROVER TENDER.CPC CODER Work Phone: [facility] 05-23-2023 08:55-0500 Systolic blood pressure 96 mm[Hg] Indu Podlogar ROVER TENDER.CPC CODER Work Phone: [facility] 09-26-2022 14:41-0400 Body height 170.2 cm Anai Mendoza MD Work Phone: [facility] 09-26-2022 14:41-0400 Body weight 68.04 kg Anai Mendoza MD Work Phone: [facility] 09-26-2022 14:41-0400 Diastolic blood pressure 64 mm[Hg] Anai Mendoza MD Work Phone: [facility] 09-26-2022 14:41-0400 Heart rate 84 /min Anai Mendoza MD Work Phone: [facility] 09-26-2022 14:41-0400 Respiratory rate 16 /min Anai Mendoza MD Work Phone: [facility] 09-26-2022 14:41-0400 Systolic blood pressure 102 mm[Hg] Anai Mendoza MD Work Phone: [facility] 04-24-2022 14:03-0500 Diastolic blood pressure 66 mm[Hg] Ganesh Winter MD Work Phone: [facility] 04-24-2022 14:03-0500 Heart rate 81 /min Ganesh Winter MD Work Phone: [facility] 04-24-2022 14:03-0500 Respiratory rate 16 /min Ganesh Winter MD Work Phone: [facility] 04-24-2022 14:03-0500 SaO2% (BldA) [Mass fraction] 96 % Ganesh Winter MD Work Phone: [facility] 04-24-2022 14:03-0500 Systolic blood pressure 102 mm[Hg] Ganesh Winter MD Work Phone: [facility] 03-12-2022 14:28-0400 Body temperature 98.4 [degF] No Primary Care Physician [facility] Work Phone: 03-12-2022 14:28-0400 Diastolic blood pressure 82 mm[Hg] No Primary Care Physician [facility] Work Phone: 03-12-2022 14:28-0400 Heart rate 80 /min No Primary Care Physician [facility] Work Phone: 03-12-2022 14:28-0400 Respiratory rate 18 /min No Primary Care Physician [facility] Work Phone: 03-12-2022 14:28-0400 SaO2% (BldA) [Mass fraction] 96 % No Primary Care Physician [facility] Work Phone: 03-12-2022 14:28-0400 Systolic blood pressure 118 mm[Hg] No Primary Care Physician [facility] Work Phone: 02-14-2022 08:58-0400 Body weight 68.22 kg Indu Foley APRN.CPC CODER Work Phone: [facility] 02-14-2022 08:58-0400 Diastolic blood pressure 60 mm[Hg] Indu Podlogar ROVER TENDER.CPC CODER Work Phone: [facility] 02-14-2022 08:58-0400 Heart rate 70 /min Indu Podlogar ROVER TENDER.CPC CODER Work Phone: [facility] 02-14-2022 08:58-0400 Respiratory rate 18 /min Indu Podlogar ROVER TENDER.CPC CODER Work Phone: [facility] 02-14-2022 08:58-0400 SaO2% (BldA) [Mass fraction] 98 % Indu Podlogar ROVER TENDER.CPC CODER Work Phone: [facility] 02-14-2022 08:58-0400 Systolic blood pressure 102 mm[Hg] Indu Podlogar ROVER TENDER.CPC CODER Work Phone: [facility] 10-10-2021 10:30-0400 Diastolic blood pressure 71 mm[Hg] Vin Aguilar MD Work Phone: [facility] 10-10-2021 10:30-0400 Heart rate 62 /min Vin Aguilar MD Work Phone: [facility] 10-10-2021 10:30-0400 Respiratory rate 16 /min Vin Aguilar MD Work Phone: [facility] 10-10-2021 10:30-0400 SaO2% (BldA) [Mass fraction] 98 % Vin Aguilar MD Work Phone: [facility] 10-10-2021 10:30-0400 Systolic blood pressure 112 mm[Hg] Vin Aguilar MD Work Phone: [facility] 10-10-2021 09:12-0400 Body temperature 98.29 [degF] Vin Aguilar MD Work Phone: [facility] 10-10-2021 09:12-0400 Body weight 68.5 kg Vin Aguilar MD Work Phone: [facility] 03-16-2021 11:06-0400 Body height 167.64 cm [facility] Work Phone: Encounters Encounter Date Encounter Type Care Provider Facility Start: 01-22-2025 ambulatory David Dunn [facility] Start: 12-21-2024 ambulatory [facility] cility:[facility] Start: 10-30-2024 Patient encounter procedure [facility] Yashira Maury BLENDING OPERATOR-C -Laboratory Work Phone: Start: 10-30-2024 End: 10-30-2024 ambulatory Yashira Maury [facility] Facility:[facility] Start: 10-28-2024 End: 10-28-2024 ambulatory Yashira Maury BLENDING OPERATOR-C Work Phone: [facility] Work Phone: Start: 10-28-2024 End: 10-28-2024 Patient encounter procedure [facility] Yashira Maury BLENDING OPERATOR-C -Laboratory Jessica Ritchie Start: 10-28-2024 End: 10-28-2024 ambulatory Yashira Maury [facility] Facility:[facility] Start: 08-18-2024 End: 09-18-2024 ambulatory [facility] Start: 01-21-2024 Refill Ganesh Winter MD Work Phone: Family [facility] Comment on above: Refill Request Start: 12-09-2023 Telephone encounter Woody Winter MD Work Phone: Family [facility] Comment on above: Patient Question Start: 12-07-2023 End: 12-07-2023 ambulatory GANESH WINTER Facility:[facility] Start: 12-07-2023 End: 12-07-2023 Patient encounter procedure Cora Barksdale APRN.CNP Work Phone: [facility] Comment on above: Impacted cerumen of right ear (Primary Dx); Right ear pain; Decreased hearing of right ear; Other acute nonsuppurative otitis media of right ear, recurrence not specified Start: 10-22-2023 End: 10-22-2023 ambulatory ROGER HORN Facility:[facility] Start: 10-22-2023 End: 10-22-2023 Patient encounter procedure Roger Horn Work Phone: Podiatry Comment on above: Onychodystrophy (Sari david Dx); Toenail fungus; Hallux valgus of left foot; Hallux valgus of right foot Start: 10-05-2023 End: 10-05-2023 ambulatory GANESH WINTER Facility:[facility] Start: 10-05-2023 End: 10-05-2023 Patient encounter procedure Juana Franklin PA-C Work Phone: [facility] Comment on above: Toenail fungus (Prim jae Dx) Start: 09-18-2023 ambulatory Ganesh Winter MD Work Phone: Internal Medicine [facility] Start: 07-30-2023 End: 07-30-2023 Patient encounter procedure Ganesh Winter MD Work Phone: [facility] Comment on above: Travel advice encoun ter (Primary Dx) Start: 07-18-2023 Telephone encounter Woody Winter MD Work Phone: [facility] Comment on above: Request for a letter Start: 05-23-2023 End: 05-23-2023 Patient encounter procedure Indu Foley APRN.CNP Work Phone: [facility] Comment on above: Annual physical exam (Primary Dx); Screening for hyperlipidemia; Generalized anxiety disorder with panic attacks Start: 04-30-2023 End: 04-30-2023 ambulatory [facility] Work Phone: Start: 04-30-2023 End: 04-30-2023 Patient encounter procedure [facility] Work Phone: Start: 10-12-2022 ambulatory Anai kinsey MD Work Phone: OB/Gynecology Comment on above: Menorrhagia with reg ular cycle (Primary Dx); Metrorrhagia Start: 10-12-2022 Patient encounter procedure Anai Mendoza MD Work Phone: [facility] Start: 09-26-2022 End: 09-26-2022 Patient encounter procedure Anai Mendoza MD Work Phone: OB/Gynecology Comment on above: Menorrhagia with reg ular cycle (Primary Dx); Metrorrhagia Start: 09-10-2022 Telephone encounter Yashira Campo david ROVER TENDER.CNM Work Phone: OB/Gynecology Comment on above: Irregular Menstrual Cycle Start: 08-10-2022 Documentation procedure Mammog ihsan Coordinator [facility] Start: 08-10-2022 Letter encounter Mammography Coordinator [facility] Start: 08-10-2022 Telephone encounter Sravani leroy ROVER TENDER.CPC CODER Work Phone: Family [facility] Comment on above: Results Start: 08-08-2022 End: 08-08-2022 Subsequent hospital visit by physician Screen Mammo [facility] Comment on above: Visit for screening mammogram [Z12.31] Start: 08-07-2022 Orders Only Ganesh Winter MD Work Phone: Appointment Center Comment on above: Visit for screening mammogram (Primary Dx) Start: 05-01-2022 Telephone encounter Woody Winter MD Work Phone: Family [facility] Comment on above: Medical Clearance (S urgical clearance information forwarded to Dr Rao as requested by patient and PCP) Start: 04-25-2022 Telephone encounter Woody Winter MD Work Phone: [facility] Comment on above: Results Start: 04-24-2022 End: 04-24-2022 Subsequent hospital visit by physician Xr [facility] Work Phone: Radiology Comment on above: Pre-op evaluation [Z 01.818] Start: 04-24-2022 End: 04-24-2022 Patient encounter procedure Ganesh Winter MD Work Phone: [facility] Comment on above: Pre-op evaluation (P rimary Dx); Generalized anxiety disorder with panic attacks Start: 04-24-2022 End: 04-24-2022 Preprocedural examination done Ganesh Winter MD Work Phone: [facility] Start: 03-12-2022 End: 03-12-2022 Patient encounter procedure No Primary Care Physician [facility] Start: 02-14-2022 End: 02-14-2022 Patient encounter procedure Indu Jassomegan PALMERCPC CODER Work Phone: [facility] Comment on above: Scar of hand (Primar y Dx) Start: 10-25-2021 Telephone encounter Woody Winter MD Work Phone: [facility] Comment on above: Results Start: 10-10-2021 End: 10-10-2021 Subsequent hospital visit by physician iVn Aguilar MD Work Phone: Ambulatory Surgery Comment on above: Screening for colon cancer [Z12.11] Start: 09-05-2021 End: 09-05-2021 Subsequent hospital visit by physician [facility] Work Phone: Radiology Comment on above: Abnormal mammogram [ R92.8] Start: 08-22-2021 Telephone encounter Gracie patton PA-C Work Phone: General Surgery Comment on above: 10-10-2021 Colon [facility] Start: 08-17-2021 Registered [facility] Start: 07-27-2021 End: 07-27-2021 Discharged [facility] Start: 07-17-2021 End: 07-17-2021 Discharged [facility], [facility] Start: 07-17-2021 Registered [facility], [facility] Start: 06-06-2021 ambulatory [facility] Provider Forest Lama Comment on above: PCP Start: 06-06-2021 E-mail encounter fro m caregiver [facility] Provider APRIL MORGAN Start: 04-27-2021 ambulatory [facility] Provider Pulmonary Medicine Comment on above: Test Result Start: 04-27-2021 E-mail encounter fro m caregiver [facility] Provider IRENE [facility] Start: 01-21-2019 ambulatory [facility] Provider Family Med mary Bonilla Comment on above: Results Start: 01-21-2019 E-mail encounter fro m caregiver [facility] Provider JORI BONILLA Start: 02-11-2017 End: 02-11-2017 Ambulatory David P Han Facility:[facility] Start: 02-07-2017 End: 02-08-2017 Ambulatory David P Han Facility:[facility] Start: 01-29-2017 End: 01-30-2017 Ambulatory David P Han Facility:[facility] Start: 01-17-2017 End: 01-17-2017 Ambulatory David P Han Facility:[facility] Start: 01-15-2017 End: 01-15-2017 Ambulatory David P Han Facility:[facility] Start: 01-14-2017 End: 01-15-2017 Ambulatory David P Han Facility:[facility] Start: 01-14-2017 End: 01-15-2017 Ambulatory David P Han Facility:[facility] Start: 01-10-2017 End: 01-11-2017 Ambulatory David P Han Facility:[facility] Start: 01-08-2017 End: 01-09-2017 Ambulatory Nodr No Doctor Assigned Facility:[facility] Start: 12-14-2016 End: 12-15-2016 Ambulatory [facility] Diazpatrick Facility:[facility] Start: 12-14-2016 End: 12-15-2016 Ambulatory Davidmeryl Short Facility:[facility] Start: 05-20-2015 End: 05-20-2015 ambulatory [facility] Start: 05-15-2015 ambulatory [facility] CAT Scan Comment on above: Radiology XR Start: 05-15-2015 Patient encounter procedure [facility] Procedures Date Procedure Procedure Detail Performing Clinician Start: 10-28-2024 Follicle stimulating hormone measurement Yashira CADENA Work Phone: Comment on above: FEMALE:Follicular: 1 .4 - 18.1 mIU/mLMidcycle: 3.4 - 33.4 mIU/mLLuteal: 1.5 - 9.1 mIU/mLPost Menopause: 23.0 - 116.3 mIU/mLMALE: 1.4 - 18.1 mIU/mL NORMAL REFERENCE RANGES FEMALE FOLLICULAR 2.3 - 12.6 mIU/mL MID-CYCLE PEAK 5.2 - 17.5 mIU/mL LUTEAL 1.7 - 12.9 mIU/mL POST-MENOPAUSAL ON MHT 5.9 - 72.8 mIU/mL NOT ON MHT 12.7 - 132.2 mlU/mL MALE 0.7 - 10.8 mIU/mL Start: 10-28-2024 Luteinizing hormone measurement Yashira Mendiola NP-C Work Phone: Comment on above: FEMALE:Follicular: 1 .9-12.5 mIU/mLMidcycle: 8.7-76.3 mIU/mLLuteal: 0.5-16.9 mIU/mLPost Menopause: 15.9-54.0 mIU/mLMALE:20-70 Years: 1.5-9.3 mIU/mL>70 Years: 3.1-34.6 mIU/mL Start: 10-28-2024 Serum progesterone measurement Yashira Mendiola NP-C Work Phone: Comment on above: Follicular phase 0.1 - 0.9 Luteal phase 1.8 - 23.9 Ovulation phase 0.1 - 12.0 First trimester 11.0 - 44.3 Second trimester 25.4 - 83.3 Third trimester 58.7 - 214.0 Postmenopausal 0.0 - 0.1Performed at: [facility] [address] [id number] Director: Zia Ortega PhD, Phone: [phone] Start: 10-28-2024 Vitamin D, 25-hydrox y measurement Yashira Mendiola NP-C Work Phone: Comment on above: Vitamin D StatusDefi ciency: <20 ng/mL (50nmol/L)Insufficiency: 20-30 ng/mL (50-75 nmol/L)Sufficiency: 30-100 ng/mL (75-250 nmol/L)Toxicity: >100 ng/mL (>250 nmol/L) Start: 04-30-2023 MRI of joint of uppe r extremity Start: 04-30-2023 MRI arthrography of shoulder Start: 08-08-2022 End: 08-08-2022 Mammography Ganesh jackson MD Work Phone: Start: 04-24-2022 Radiologic exam ches t 2 views Ganesh Winter MD Work Phone: Start: 04-24-2022 Urine test visual color cmprsn meths Ganesh Winter MD Work Phone: Start: 10-10-2021 Colon ca scrn not hi rsk ind Gracie Freeman PA-C Work Phone: Start: 10-10-2021 Colonoscopy Gracie HERNDONC Work Phone: Start: 09-05-2021 Us breast uni real t glenn with image limited Ganesh Winter MD Work Phone: Start: 08-03-2021 Mammography Us 1 Work Phone: Start: 07-27-2021 Lipid 1996 panel - S humberto or Plasma Screen Ws Start: 06-29-2010 Colonoscopy Us 1 Work Phone: History of reconstru ction of anterior cruciate ligament tear S/P ACL repair Plan of Treatment Date Care Activity Detail Author Start: 10-11-2031 Colonoscopy COLONOSCOPY [facility] Start: 10-11-2031 COLORECTAL CANCER SCREENING COLORECTAL CANCER SCREENING [facility] Start: 10-11-2031 Screening for malign ant neoplasm of colon [facility] Start: 07-27-2031 Urine microalbumin profile [facility] Start: 07-27-2026 Lipid 1996 panel - S humberto or Plasma Lipid Screening [facility] Start: 07-27-2026 Lipid panel Lipid Screening [facility] Start: 07-27-2026 LIPID SCREEN LIPID SCREEN [facility] Start: 04-13-2026 HPV TESTING HPV TESTING [facility] Start: 04-13-2026 PAP TESTING PAP TESTING [facility] Start: 04-13-2026 Screening for malign ant neoplasm of cervix [facility] Start: 04-24-2025 DIABETES SCREEN DIABETES SCREEN [facility] Start: 04-24-2025 Diabetes Screening Diabetes Screenin g [facility] Start: 07-27-2024 DIABETES SCREEN DIABETES SCREEN [facility] Start: 05-23-2024 Covid-19 Vaccine ( season) Covid-19 Vaccine ( season) [facility] Comment on above: Postponed from 02/15 (Declined at this time) Start: 02-16-2024 Covid-19 Vaccine ( season) Covid-19 Vaccine ( season) [facility] Start: 02-16-2024 Influenza vaccination C [facility] Start: 12-15-2023 Influenza vaccination Influenza Vacc ine (#1) [facility] Comment on above: Postponed from 02/15 (Declined at this time) Start: 11-28-2023 Pneumococcal Vaccine : 50+ (1 of 1 - PCV) Pneumococcal Vaccine: 50+ (1 of 1 - PCV) [facility] Start: 11-28-2023 Shingrix Vaccine (1 of 2) Renee grix Vaccine (1 of 2) [facility] Start: 08-08-2023 Mammography [facility] Start: 08-08-2023 Screening for malign ant neoplasm of breast Mammogram Screening [facility] Start: 05-23-2023 End: 08-22-2023 Lipid 1996 panel - Serum or Plasma LIPID PANEL BASIC Lab Routine Screening for hyperlipidemia Expected: 05/23/2023, Expires: 08/22/2023 [facility] Work Phone: Comment on above: Expected: 05/23/2023 , Expires: 08/22/2023 Start: 04-24-2023 COVID-19 VACCINE (3 - Booster for Pfizer series) COVID-19 VACCINE (3 - Booster for Pfizer series) [facility] Comment on above: Postponed from 07/25 (Declined at this time) Start: 02-15-2023 Covid-19 Vaccine () Covid-19 Vaccine () [facility] Start: 02-15-2023 Influenza vaccination C [facility] Start: 12-14-2022 Influenza vaccination INFLUENZA (#1) [facility] Comment on above: Postponed from 02/15 (Declined at this time) Start: 10-10-2022 Colonoscopy COLONOSCOPY [facility] Start: 10-10-2022 COLORECTAL CANCER SCREENING COLORECTAL CANCER SCREENING [facility] Start: 08-03-2022 Mammography MAMMOGRAM [facility] Start: 04-25-2022 End: 06-25-2022 CBC W Auto Differential panel - Blood CBC + DIFF Lab Routine Leukocytosis, unspecified type Expected: 04/25/2022, Expires: 06/25/2022 [facility] Work Phone: Comment on above: Expected: 04/25/2022 , Expires: 06/25/2022 Start: 02-15-2022 Influenza vaccination C [facility] Start: 12-14-2021 Influenza vaccination INFLUENZA (#1) [facility] Comment on above: Postponed from 02/15 (Declined at this time) Start: 10-28-2021 COVID-19 VACCINE (3 - Booster for Pfizer series) COVID-19 VACCINE (3 - Booster for Pfizer series) [facility] Start: 2018 COLOGUARD (FIT-DNA) COLOGUARD (FIT-D NA) [facility] Start: 2018 Colonoscopy COLONOSCOPY [facility] Start: 2018 COLORECTAL CANCER SCREENING COLORECTAL CANCER SCREENING [facility] Start: [address] COLONOGRAPHY [facility] Start: 2018 FECAL OCCULT BLOOD FECAL OCCULT BLOO D [facility] Start: 2018 Screening for malign ant neoplasm of colon [facility] Start: 2018 SIGMOIDOSCOPY SIGMOIDOSCOPY [facility] Start: 1992 Hepatitis B Vaccine (1 of 3 - 19+ 3-dose series) Hepatitis B Vaccine (1 of 3 - 19+ 3-dose series) [facility] Start: 1975 HEPATITIS B (1 of 3 - 3-dose series) HEPATITIS B (1 of 3 - 3-dose series) [facility] Start: 1975 Hepatitis B Vaccine (1 of 3 - 3-dose series) Hepatitis B Vaccine (1 of 3 - 3-dose series) [facility] End: 09-17-2025 DBT Breast - bilateral screening ANGEL SCREENING W KASHIF Radiology Routine Encounter for screening mammogram for breast cancer 1 Occurrences starting 08/18/2024 until 09/17/2025 [facility] Work Phone: Comment on above: 1 Occurrences starti ng 08/18/2024 until 09/17/2025 FUNGAL CULTURE AND SMEAR-HAIR,SKIN,NAIL FUNGAL CULTURE AND SMEAR-HAIR,SKIN,NAIL Microbiology Routine Toenail fungus 10/22/2023 9:[address] [facility] Work Phone: End: 10-17-2024 MG Breast Screening ANGEL SCREENING Radiology Routine Encounter for screening mammogram for breast cancer 1 Occurrences starting 09/18/2023 until 10/17/2024 [facility] Work Phone: Comment on above: 1 Occurrences starti ng 09/18/2023 until 10/17/2024 Removal impacted cer umen instrumentation unilat REMOVAL OF IMPACTED CERUMEN - INSTRUMENTATION Procedures Routine Impacted cerumen of right ear Ordered: 12/07/2023 [facility] Work Phone: Comment on above: Ordered: 12/07/2023 Serum testosterone measurement [facility] Testosterone Free [Mass/volume] in Serum or Plasma [facility] Testosterone measurement [facility] Immunizations Immunization Date Immunization Notes Care Provider Beto montes 07-27-2021 tetanus and diphther ia toxoids, adsorbed, preservative free, for adult use (5 Lf of tetanus toxoid and 2 Lf of diphtheria toxoid) Us 1 Work Phone: [facility] 06-04-2017 influenza, injectabl e, quadrivalent, preservative free [facility] 06-04-2017 influenza, seasonal, injectable [facility] Work Phone: 06-04-2017 influenza, seasonal, injectable, preservative free Indu Jassologsonia ROVER TENDER.CPC CODER Work Phone: [facility] 06-04-2017 influenza virus vaccine, unspecified formulation Screen Wstr [facility] 01-19-2010 tetanus toxoid, redu ok diphtheria toxoid, and acellular pertussis vaccine, adsorbed Us 1 Work Phone: [facility] Payers Date Payer Category Payer Self-pay [id number] 2021 [employer] BLUE ACCE SS PPO [id number] 2021 Unknown [id number] 2021 Unknown [id number] 2020 Unknown ALEX REGALADO ACCE SS PPO [id number] 2020-Present [phone] [address] [place] [address] PPO [id number] 2012 Private Health Insurance 2012 Private Health Insurance [id number] Unknown SELF PAY INSURANCE [id number] Unknown [id number] Unknown [id number] Unknown [id number] Unknown [id number] Social History Date Type Detail Facility Start: 02-14-2022 End: 10-05-2022 Tobacco smoking status NHIS Never smoked tobacco [facility] Start: 08-22-2021 End: 12-07-2023 Alcohol intake Ex-drinker (finding) [facility] Start: 10-15-2019 History SDOH Alcohol Frequency 2 [facility] Start: 10-15-2019 History SDOH Alcohol Std Drinks 3 [facility] Start: 10-15-2019 History SDOH Social Connections Sikh 1 [facility] Start: 10-15-2019 History SDOH Stress 5 [facility] Start: 10-15-2019 History SDOH Financial 4 [facility] Start: 10-15-2019 Education 12 [facility] Start: 1975 Sex Assigned At Not on file C [facility] Start: 08-26-2021 End: 04-24-2022 Exposure to SARS-CoV-2 (event) Not sure [facility] Start: 04-20-2021 End: 10-05-2022 Tobacco smoking status NHIS Unknown if ever smoked [facility] Start: 1975 Sex Assigned At Female W [facility] Start: 06-14-2017 End: 02-14-2022 Tobacco use and exposure Smokeless tobacco non-user [facility] Start: 05-15-2015 End: 10-13-2018 Alcohol intake Current drinker of alcohol (finding) [facility] Start: 06-29-2010 Alcohol Comment once a week [facility] Start: 05-20-2015 Alcohol Comment 2-3 per week [facility] Start: 10-15-2019 End: 10-23-2022 History of Social function [facility] Start: 10-15-2019 End: 10-23-2022 Social connection and isolation panel [facility] Do you belong to any clubs or organizations such as mormonism groups, unions, fraternal or athletic groups, or school groups? No [facility] Are you now , , , , never or living with a partner? [facility] How often to you hav e a drink containing alcohol? Monthly or less [facility] How many standard dr inks containing alcohol do you have on a typical day? 5 or 6 [facility] How often do you hav e 6 or more drinks on 1 occasion? Less than monthly [facility] How hard is it for y ou to pay for the very basics like food, housing, medical care, and heating Not very hard [facility] Adult Depression Scr eening Assessment 0 [facility] Do you feel stress - tense, restless, nervous, or anxious, or unable to sleep at night because your mind is troubled all the time - these days [OSQ] Very much [facility] (I/We) worried wheth er (my/our) food would run out before (I/we) got money to buy more. Never true [facility] Medical Equipment Procedure Code Equipment Code Equipment Origin al Text Equipment Identifier Dates ACL DISPOSABLES KIT FDA Start : 05-28-2017 ACORN REAMER FDA Start: 05-28-2017 FEMORAL INTRAFIX STD FDA Star t: 05-28-2017 FULLY FLUTED REAMER FDA Start : 05-28-2017 INTRAFIX ADVANCE SHEATH/SCREW FDA Start: 05-28-2017 TENDON, ANT TIB NON IRRADIATE FDA Start: 05-28-2017 ACL DISPOSABLES KIT FDA Start : 05-28-2017 ACORN REAMER FDA Start: 05-28-2017 FEMORAL INTRAFIX STD FDA Star t: 05-28-2017 FULLY FLUTED REAMER FDA Start : 05-28-2017 INTRAFIX ADVANCE SHEATH/SCREW FDA Start: 05-28-2017 TENDON, ANT TIB NON IRRADIATE FDA Start: 05-28-2017 ACL DISPOSABLES KIT FDA Start : 05-28-2017 ACORN REAMER FDA Start: 05-28-2017 FEMORAL INTRAFIX STD FDA Star t: 05-28-2017 FULLY FLUTED REAMER FDA Start : 05-28-2017 INTRAFIX ADVANCE SHEATH/SCREW FDA Start: 05-28-2017 TENDON, ANT TIB NON IRRADIATE FDA Start: 05-28-2017 ACL DISPOSABLES KIT FDA Start : 05-28-2017 ACORN REAMER FDA Start: 05-28-2017 FEMORAL INTRAFIX STD FDA Star t: 05-28-2017 FULLY FLUTED REAMER FDA Start : 05-28-2017 INTRAFIX ADVANCE SHEATH/SCREW FDA Start: 05-28-2017 TENDON, ANT TIB NON IRRADIATE FDA Start: 05-28-2017 ACL DISPOSABLES KIT FDA Start : 05-28-2017 ACORN REAMER FDA Start: 05-28-2017 FEMORAL INTRAFIX STD FDA Star t: 05-28-2017 FULLY FLUTED REAMER FDA Start : 05-28-2017 INTRAFIX ADVANCE SHEATH/SCREW FDA Start: 05-28-2017 TENDON, ANT TIB NON IRRADIATE FDA Start: 05-28-2017 Goals Date Patient Goal Desired Activity /State Functional Status Date Assessment Result Facility 09-02-2014 Are you deaf, or do you have serious difficulty hearing No 09/02/2014 1:34 PM EDT Marianela Sprague RN No [facility] 09-02-2014 Are you blind, or do you have serious difficulty seeing, even when wearing glasses No 09/02/2014 1:34 PM EDT Marianela Sprague RN No [facility] 09-02-2014 Do you have serious difficulty walking or climbing stairs No 09/02/2014 1:34 PM EDT Marianela Sprague RN [facility] 09-02-2014 Do you have difficul ty dressing or bathing No 09/02/2014 1:34 PM EDT Marianela Sprague RN No [facility] 09-02-2014 Because of a physica l, mental, or emotional condition, do you have difficulty doing errands alone such as visiting a physician's office or shopping No 09/02/2014 1:34 PM EDT Marianela Sprague RN No [facility] Mental Status Date Assessment Result Facility 09-02-2014 Because of a physica l, mental, or emotional condition, do you have serious difficulty concentrating, remembering, or making decisions No 09/02/2014 1:34 PM EDT Marianela Sprague RN [facility] Clinical Notes 05-15-2015 to 08-18-2024 Telephone Encounter - Mayra Tovar LPN - 01/21/2024 11:03 AM EDTTelephone Encounter - Mayra Tovar LPN - 01/21/2024 11:03 AM EDTPatient Roger Glover - 10/22/2023 9:13 AM EDT Note Date & Type Note Facility 08-18-2024 Note Patient Outreach (FA MPWS) MIGDALIAHARRISON ([id number]) 1975 F Date Time Provider Department 08/18/24 GANESH WINTER During your visit today, we recorded the following information about you: Allergies As of Date: 08/18/2024 Noted Allergy Reaction ADHESIVE TAPE (ROSINS) 12/19/2005 2 - Rash PERCOCET (OXYCODONE-ACETAMINOPHEN) 015 9 - Itching Date Reviewed: 12/07/2023 Reviewed by: Bethany Prather LPN - Fully Assessed Visit Diagnosis:Encounter for screening mammogram for breast cancer [Z12.31] Order(s):[facility] SCREENING W KASHIF [[id number]] Order #: [id number] FUTURE Prescriptions as of 09/18/2024 - sertraline (ZOLOFT) 50 mg tablet Take 1 tablet by mouth once daily. - valACYclovir (VALTREX) 1 gram tablet Take 1,000 mg by mouth as needed (outbreak). - meloxicam (MOBIC) 15 mg tablet Take 15 mg by mouth once daily. As needed Problem List As Of Date 08/18/2024 Noted Resolved Bipolar I disorder, most recent episode (or cur* 07/27/2021 HERPES ZOSTER NOS [B02.9] Dry Cough [R05.8] 03/02/2009 Migraine [G43.909] 08/23/2009 Internal hemorrhoids without mention of complic*04/26/2011 Thrombosed external hemorrhoid [K64.5] 07/27/2011 Thrombosed hemorrhoids [K64.5] 04/09/2012 Hemorrhoids, internal [K64.8] 06/19/2016 Pulmonary embolus (HCC) [I26.99] 06/14/2017 Lumbar strain, subsequent encounter [S39.012D] 10/13/2018 Situational mixed anxiety and depressive disord*10/16/2019 Generalized anxiety disorder with panic attacks*10/16/2019 Ovarian cyst, left [N83.202] 05/19/2021 Recurrent major depressive disorder, in full re*07/27/2021 Encounter Status:Closed by SHO, PRODUSER on 09/18/24 [facility] 01-21-2024 Telephone encounter Note The patient has been identified by name and date of : Yes Caregiver verified no other encounters exist for this prescription request: Yes Caregiver confirmed with patient/requestor that no other refills are due, in the near future, with this provider at this time: Yes The last office visit in the department: 07/30/2023 Does the patient have a future office visit with this provider/department: No Visit date not found Requested Prescriptions Pending Prescriptions Disp Refills sertraline (ZOLOFT) 50 mg tablet 90 tablet 3 Sig: Take 1 tablet by mouth once daily. Mayra Tovar LPN January 21, 2024 11:07 AM [facility] 01-21-2024 Miscellaneous Notes The patient has been identified by name and date of : Yes Caregiver verified no other encounters exist for this prescription request: Yes Caregiver confirmed with patient/requestor that no other refills are due, in the near future, with this provider at this time: Yes The last office visit in the department: 07/30/2023 Does the patient have a future office visit with this provider/department: No Visit date not found Requested Prescriptions Pending Prescriptions Disp Refills sertraline (ZOLOFT) 50 mg tablet 90 tablet 3 Sig: Take 1 tablet by mouth once daily. Mayra Tovar LPN January 21, 2024 11:07 AM documented in this encounter [facility] 12-09-2023 Telephone encounter Note TC to patient who is informed of below. LEXIS Montano [facility] 12-09-2023 Miscellaneous Notes TC to patient who is informed of below. LEXIS Montano Rx sent. Call for OV if symptoms do not improve after 2nd dose. Patient calls to report she is currently taking amoxicillin for ear infection from [facility] on 12/07/2023. Patient reports that she has developed a yeast infection as she always does with antibiotics and asking if provider would send in a prescription for Diflucan to [facility] [place]. Please review and advise, Cindy Bailey RN documented in this encounter [facility] 12-09-2023 Telephone encounter Note Rx sent. Call for OV if symptoms do not improve after 2nd dose. [facility] 12-09-2023 Telephone encounter Note Patient calls to report she is currently taking amoxicillin for ear infection from [facility] on 12/07/2023. Patient reports that she has developed a yeast infection as she always does with antibiotics and asking if provider would send in a prescription for Diflucan to [facility]. Please review and adviseCindy RN [facility] 12-07-2023 Note Addended by: CORA MORROW on: 12/07/2023 03:07 PM Modules accepted: Orders [facility] 12-07-2023 Miscellaneous Notes Addended by: CORA BARKSDALE on: 12/07/2023 03:07 PM Modules accepted: Orders documented in this encounter [facility] 12-07-2023 Instructions Cora Barksdale APRN.CPC CODER - 12/07/2023 11:11 AM EDT ASSESSMENT/PLAN: 1. Impacted cerumen of right ear - ICD9: 380.4, ICD10: H61.21 (primary diagnosis) - Cerumen removed via irrigation, patient tolerated procedure well. Post procedure right ear canal is clear and TM is well visualized with bony landmarks intact. The TM is erythematous and bulging. 2. Right ear pain - ICD9: 388.70, ICD10: H92.01 - due to cerumen impaction and right otitis media. 3. Decreased hearing of right ear - ICD9: 389.9, ICD10: H91.91 - due to cerumen impaction and right otitis media. 4. Other acute nonsuppurative otitis media of right ear, recurrence not specified - ICD9: 381.00, ICD10: H65.191 - Will begin treatment with as per antibiotic as written, see orders - Supportive care with plenty of fluids, rest, and analgesia prn. - AMOXICILLIN 875 MG TABLET - Follow-up with your PCP in 3-5 days if symptoms have not improved or sooner if symptoms worsen - Discussed red flags and need for immediate medical evaluation if any occur. - Discussed supportive care treatment with fluids, rest and analgesia. - Discussed expected course of illness Cora Barksdale APRN.CPC CODER documented in this encounter [facility] 12-07-2023 Note HNO ID: [id number] Author: CORA BARKSDALE APRN.CPC CODER Service: ? Author Type: Nurse Practitioner Type: Progress Notes Filed: 12/07/2023 11:12 Note Text: Subjective Ear Pain Associated symptoms include congestion and headaches. Pertinent negatives include no chills, coughing, fever, myalgias or sore throat. Sinus Problem Associated symptoms include congestion and headaches. Pertinent negatives include no chills, coughing, fever, myalgias or sore throat. Harrison Guido is a 48 year old female who presents with right ear pain for the past 2 days. She states she cannot hear out of her left ear and it feels clogged. She has not had a fever. She has had a headache and nasal congestion due to a cold for the past month. She has taken zyrtec at home. Review of Systems Constitutional: Negative for chills, fever and malaise/fatigue. HENT: Positive for congestion, ear pain and hearing loss. Negative for ear discharge and sore throat. Respiratory: Negative for cough. Cardiovascular: Negative. Musculoskeletal: Negative for myalgias. Neurological: Positive for headaches. BP 112/81 Pulse 74 Temp 36 ?C (96.8 ?F) Resp 20 Wt 77 kg (169 lb 12.1 oz) LMP 10/04/2022 (Exact Date) SpO2 99% BMI 26.19 kg/m? PAST MEDICAL HISTORY Diagnosis Date Abnormal uterine bleeding Acute pain of left shoulder Dr. Vera-Ezequiel Allergic rhinitis, cause unspecified Cyst of left ovary BRANDON (generalized anxiety disorder) Herpes zoster without complication Recurrent. [facility] Herpes zoster without mention of complication face Lateral epicondylitis of left elbow Migraine without aura Other hemorrhoids Pulmonary embolism (HCC) after ACL repair Recurrent major depressive disorder, in full remission (HCC) Umbilical hernia PAST SURGICAL HISTORY Procedure Laterality Date BREAST AUGMENTATION WITH IMPLANT Bilateral 2020 BREAST AUGMENTATION WITH IMPLANT 2011 COLONOSCOPY 10/10/2021 repeat in 10 years COLONOSCOPY W/BIOPSY SINGLE/MULTIPLE 07/05/2010 Normal Colon EGD TRANSORAL BIOPSY SINGLE/MULTIPLE 07/05/2010 Gastritis EXTRACTION, ERUPTED TOOTH OR EXPOSED ROOT (ELEVATION AND/OR FORCEPS REMOVAL) 06/17/2004 PAST SURGICAL HISTORY OF TVT PAST SURGICAL HISTORY OF Left 2018 ACL repair REMOVAL OF OVARY(S) Right benign mass SHX COSMETIC SURGERY 05/2022 Tummy Tuck and hernia repair ALLERGIES Adhesive Tape (Rosins) and Percocet [Oxycodone-Acetaminophen] MEDICATIONS valACYclovir (VALTREX) 1 gram tablet Take 1,000 mg by mouth as needed (outbreak). meloxicam (MOBIC) 15 mg tablet Take 15 mg by mouth once daily. As needed sertraline (ZOLOFT) 50 mg tablet Take 1 tablet by mouth once daily. FAMILY HISTORY Problem Relation Age of Onset Hypertension Mother Cancer Maternal Grandmother lung, smoker Breast Cancer Maternal Aunt Social History Tobacco Use Smoking status: Never Smokeless tobacco: Never Vaping Use Vaping Use: Never used Substance Use Topics Alcohol use: Not Currently Drug use: No Objective Physical Exam Vitals and nursing note reviewed. Constitutional: General: She is not in acute distress. Appearance: Normal appearance. She is not ill-appearing. HENT: Right Ear: External ear normal. Decreased hearing noted. There is impacted cerumen. Left Ear: Tympanic membrane, ear canal and external ear normal. Ears: Comments: Right ear: Cerumen impairs exam of clinically significant portions of the external auditory canal, tympanic membrane or middle ear condition. Nose: Nose normal. Mouth/Throat: Pharynx: Uvula midline. Cardiovascular: Rate and Rhythm: Normal rate. Pulmonary: Effort: Pulmonary effort is normal. Musculoskeletal: Cervical back: Neck supple. Lymphadenopathy: Cervical: No cervical adenopathy. Skin: General: Skin is warm and dry. Findings: No erythema or rash. Neurological: Mental Status: She is alert. ASSESSMENT/PLAN: 1. Impacted cerumen of right ear - ICD9: 380.4, ICD10: H61.21 (primary diagnosis) - Cerumen removed via irrigation, patient tolerated procedure well. Post procedure right ear canal is clear and TM is well visualized with bony landmarks intact. The TM is erythematous and bulging. 2. Right ear pain - ICD9: 388.70, ICD10: H92.01 - due to cerumen impaction and right otitis media. 3. Decreased hearing of right ear - ICD9: 389.9, ICD10: H91.91 - due to cerumen impaction and right otitis media. 4. Other acute nonsuppurative otitis media of right ear, recurrence not specified - ICD9: 381.00, ICD10: H65.191 - Will begin treatment with as per antibiotic as written, see orders - Supportive care with plenty of fluids, rest, and analgesia prn. - AMOXICILLIN 875 MG TABLET - Follow-up with your PCP in 3-5 days if symptoms have not improved or sooner if symptoms worsen - Discussed red flags and need for immediate medical evaluation if any occur. - Discussed supportive care treatment w (more content not included)... [facility] 12-07-2023 History of Presen t illness Narrative Subjective Ear Pain Associated symptoms include congestion and headaches. Pertinent negatives include no chills, coughing, fever, myalgias or sore throat. Sinus Problem Associated symptoms include congestion and headaches. Pertinent negatives include no chills, coughing, fever, myalgias or sore throat. Harrison Guido is a 48 year old female who presents with right ear pain for the past 2 days. She states she cannot hear out of her left ear and it feels clogged. She has not had a fever. She has had a headache and nasal congestion due to a cold for the past month. She has taken zyrtec at home. Review of Systems Constitutional: Negative for chills, fever and malaise/fatigue. HENT: Positive for congestion, ear pain and hearing loss. Negative for ear discharge and sore throat. Respiratory: Negative for cough. Cardiovascular: Negative. Musculoskeletal: Negative for myalgias. Neurological: Positive for headaches. BP 112/81 Pulse 74 Temp 36 C (96.8 F) Resp 20 Wt 77 kg (169 lb 12.1 oz) LMP 10/04/2022 (Exact Date) SpO2 99% BMI 26.19 kg/m PAST MEDICAL HISTORY Diagnosis Date Abnormal uterine bleeding Acute pain of left shoulder Dr. Vera-Ortho Allergic rhinitis, cause unspecified Cyst of left ovary BRANDON (generalized anxiety disorder) Herpes zoster without complication Recurrent. [facility] Herpes zoster without mention of complication face Lateral epicondylitis of left elbow Migraine without aura Other hemorrhoids Pulmonary embolism (HCC) after ACL repair Recurrent major depressive disorder, in full remission (HCC) Umbilical hernia PAST SURGICAL HISTORY Procedure Laterality Date BREAST AUGMENTATION WITH IMPLANT Bilateral 2020 BREAST AUGMENTATION WITH IMPLANT 2011 COLONOSCOPY 10/10/2021 repeat in 10 years COLONOSCOPY W/BIOPSY SINGLE/MULTIPLE 07/05/2010 Normal Colon EGD TRANSORAL BIOPSY SINGLE/MULTIPLE 07/05/2010 Gastritis EXTRACTION, ERUPTED TOOTH OR EXPOSED ROOT (ELEVATION AND/OR FORCEPS REMOVAL) 06/17/2004 PAST SURGICAL HISTORY OF TVT PAST SURGICAL HISTORY OF Left 2018 ACL repair REMOVAL OF OVARY(S) Right benign mass SHX COSMETIC SURGERY 05/2022 Tummy Tuck and hernia repair ALLERGIES Adhesive Tape (Rosins) and Percocet [Oxycodone-Acetaminophen] MEDICATIONS valACYclovir (VALTREX) 1 gram tablet Take 1,000 mg by mouth as needed (outbreak). meloxicam (MOBIC) 15 mg tablet Take 15 mg by mouth once daily. As needed sertraline (ZOLOFT) 50 mg tablet Take 1 tablet by mouth once daily. FAMILY HISTORY Problem Relation Age of Onset Hypertension Mother Cancer Maternal Grandmother lung, smoker Breast Cancer Maternal Aunt Social History Tobacco Use Smoking status: Never Smokeless tobacco: Never Vaping Use Vaping Use: Never used Substance Use Topics Alcohol use: Not Currently Drug use: No Objective Physical Exam Vitals and nursing note reviewed. Constitutional: General: She is not in acute distress. Appearance: Normal appearance. She is not ill-appearing. HENT: Right Ear: External ear normal. Decreased hearing noted. There is impacted cerumen. Left Ear: Tympanic membrane, ear canal and external ear normal. Ears: Comments: Right ear: Cerumen impairs exam of clinically significant portions of the external auditory canal, tympanic membrane or middle ear condition. Nose: Nose normal. Mouth/Throat: Pharynx: Uvula midline. Cardiovascular: Rate and Rhythm: Normal rate. Pulmonary: Effort: Pulmonary effort is normal. Musculoskeletal: Cervical back: Neck supple. Lymphadenopathy: Cervical: No cervical adenopathy. Skin: General: Skin is warm and dry. Findings: No erythema or rash. Neurological: Mental Status: She is alert. ASSESSMENT/PLAN: 1. Impacted cerumen of right ear - ICD9: 380.4, ICD10: H61.21 (primary diagnosis) - Cerumen removed via irrigation, patient tolerated procedure well. Post procedure right ear canal is clear and TM is well visualized with bony landmarks intact. The TM is erythematous and bulging. 2. Right ear pain - ICD9: 388.70, ICD10: H92.01 - due to cerumen impaction and right otitis media. 3. Decreased hearing of right ear - ICD9: 389.9, ICD10: H91.91 - due to cerumen impaction and right otitis media. 4. Other acute nonsuppurative otitis media of right ear, recurrence not specified - ICD9: 381.00, ICD10: H65.191 - Will begin treatment with as per antibiotic as written, see orders - Supportive care with plenty of fluids, rest, and analgesia prn. - AMOXICILLIN 875 MG TABLET - Follow-up with your PCP in 3-5 days if symptoms have not improved or sooner if symptoms worsen - Discussed red flags and need for immediate medical evaluation if any occur. - Discussed supportive care treatment with fluids, rest and analgesia. - Discussed expected course of illness Cora Barksdale APRN.KESHA documented in this encounter [facility] 10-22-2023 Note HNO ID: [id number] Author: ROGER HORN, ? Service: ? Author Type: Physician Type: Progress Notes Filed: 10/22/2023 11:29 Note Text: Consultation requested by Dr. Franklin for an opinion regarding toenail discoloration. My final recommendations will be communicated back to the requesting physician by way of shared Medical record or letter to requesting physician via [place] mail. Initial Podiatric Office Visit: Chief Complaint: This 47 year old female who presents with chief complaint:nail fungus of multiples toes HPI Patient presents to clinic for evaluation of b/l feet Complains of nail discoloration of b/l 1st and 2nd toenail. Has noticed the discoloration for approximately 1 month Denies any pain currently. Has bunions but no pain. PAIN EVALUATION No data found in the last 1 encounters. No results found for: HBA1C PCP: Ganesh Winter MD PAST MEDICAL HISTORY Diagnosis Date Abnormal uterine bleeding Acute pain of left shoulder Dr. Vera-Ezequiel Allergic rhinitis, cause unspecified Cyst of left ovary BRANDON (generalized anxiety disorder) Herpes zoster without complication Recurrent. [facility] Herpes zoster without mention of complication face Lateral epicondylitis of left elbow Migraine without aura Other hemorrhoids Pulmonary embolism (HCC) after ACL repair Recurrent major depressive disorder, in full remission (HCC) Umbilical hernia Current Outpatient Medications Medication Sig valACYclovir (VALTREX) 1 gram tablet Take 1,000 mg by mouth as needed (outbreak). meloxicam (MOBIC) 15 mg tablet Take 15 mg by mouth once daily. As needed sertraline (ZOLOFT) 50 mg tablet Take 1 tablet by mouth once daily. No current facility-administered medications for this visit. ALLERGIES Allergen Reactions Adhesive Tape (Pina* Rash Percocet [Oxycodone* Itching PAST SURGICAL HISTORY Procedure Laterality Date BREAST AUGMENTATION WITH IMPLANT Bilateral 2020 BREAST AUGMENTATION WITH IMPLANT 2011 COLONOSCOPY 10/10/2021 repeat in 10 years COLONOSCOPY W/BIOPSY SINGLE/MULTIPLE 07/05/2010 Normal Colon EGD TRANSORAL BIOPSY SINGLE/MULTIPLE 07/05/2010 Gastritis EXTRACTION, ERUPTED TOOTH OR EXPOSED ROOT (ELEVATION AND/OR FORCEPS REMOVAL) 06/17/2004 PAST SURGICAL HISTORY OF TVT PAST SURGICAL HISTORY OF Left 2018 ACL repair REMOVAL OF OVARY(S) Right benign mass SHX COSMETIC SURGERY 05/2022 Tummy Tuck and hernia repair FAMILY HISTORY Problem Relation Age of Onset Hypertension Mother Cancer Maternal Grandmother lung, smoker Breast Cancer Maternal Aunt Social History Tobacco Use Smoking status: Never Smokeless tobacco: Never Vaping Use Vaping Use: Never used Substance Use Topics Alcohol use: Not Currently Drug use: No REVIEW OF SYSTEMS GENERAL: Negative for Malaise, significant weight loss, fever RESPIRATORY: Negative for cough, wheezing and shortness of breath CARDIOVASCULAR: Negative for chest pain, leg swelling and palpitations GI: Negative for abdominal discomfort, blood in stools or black stools and change in bowel habits : Negative for dysuria, frequency and incontinence MUSCULOSKELETAL: Negative for joint pain or swelling, back pain, and muscle pain. SKIN: Negative for lesions, rash, and itching. HEMATOLOGY/LYMPHOLOGY Negative for prolonged bleeding, bruising easily, and swollen nodes. ENDOCRINE: Negative for cold or heat intolerance, polyuria, polydipsia and goiter. NEURO: negative Physical Exam: Constitutional: Pt is a well developed 47 year old female who is alert, oriented and cooperative Eyes: Following during examination. No redness or drainage. Respiratory: RR normal and nonlabored. Even breathing. No evidence of distress or shortness of breath. Psychology: Patient is engaged during conversation. Normal affect and mood. Does not appear depressed or anxious during encounter. Vascular: Dorsalis pedis and posterior tibial pulses palpable as b/l Capillary Fill time < 5 seconds to digits 1-5 b/l Skin temperature warm to warm proximal to distal b/l Hair growth present to digits Neurological: intact light touch/epicritic sensation b/l intact protective sensation no significant neurological deficits Dermatological: Nails 1,2 b/l appear slightly thick and discolored. Webspaces clean and dry 1-4 b/l. Skin appears well hydrated and supple. good color, texture, turgor. No open lesions present. No callosities present. Musculoskeletal/Orthopaedic: Patient has no pain to palpation of b/l feet Foot type is neutral structurally AJ ROM is full with knee extended and flexed 1st MPJ is decreased when loaded and no pain or crepitus are noted with ROM. Mild bunion is present ot b/l feet. Medial deviation of b/l 2nd toe MTJ, STJ are full and free of pain and crepitus. +5/5 muscle strength dorsiflexion, plantarflexion, inversion, eversion b/l Radiographs:n/a ASSESSMENT: (L60.3) On (more content not included)... [facility] 10-22-2023 History of Presen t illness Narrative Consultation requested by Dr. Franklin for an opinion regarding toenail discoloration. My final recommendations will be communicated back to the requesting physician by way of shared Medical record or letter to requesting physician via [place] mail. Initial Podiatric Office Visit: Chief Complaint: This 47 year old female who presents with chief complaint:nail fungus of multiples toes HPI Patient presents to clinic for evaluation of b/l feet Complains of nail discoloration of b/l 1st and 2nd toenail. Has noticed the discoloration for approximately 1 month Denies any pain currently. Has bunions but no pain. PAIN EVALUATION No data found in the last 1 encounters. No results found for: HBA1C PCP: Ganesh Winter MD PAST MEDICAL HISTORY Diagnosis Date Abnormal uterine bleeding Acute pain of left shoulder Dr. Vera-Ortho Allergic rhinitis, cause unspecified Cyst of left ovary BRANDON (generalized anxiety disorder) Herpes zoster without complication Recurrent. [facility] Herpes zoster without mention of complication face Lateral epicondylitis of left elbow Migraine without aura Other hemorrhoids Pulmonary embolism (HCC) after ACL repair Recurrent major depressive disorder, in full remission (HCC) Umbilical hernia Current Outpatient Medications Medication Sig valACYclovir (VALTREX) 1 gram tablet Take 1,000 mg by mouth as needed (outbreak). meloxicam (MOBIC) 15 mg tablet Take 15 mg by mouth once daily. As needed sertraline (ZOLOFT) 50 mg tablet Take 1 tablet by mouth once daily. No current facility-administered medications for this visit. ALLERGIES Allergen Reactions Adhesive Tape (Pina* Rash Percocet [Oxycodone* Itching PAST SURGICAL HISTORY Procedure Laterality Date BREAST AUGMENTATION WITH IMPLANT Bilateral 2020 BREAST AUGMENTATION WITH IMPLANT 2011 COLONOSCOPY 10/10/2021 repeat in 10 years COLONOSCOPY W/BIOPSY SINGLE/MULTIPLE 07/05/2010 Normal Colon EGD TRANSORAL BIOPSY SINGLE/MULTIPLE 07/05/2010 Gastritis EXTRACTION, ERUPTED TOOTH OR EXPOSED ROOT (ELEVATION AND/OR FORCEPS REMOVAL) 06/17/2004 PAST SURGICAL HISTORY OF TVT PAST SURGICAL HISTORY OF Left 2018 ACL repair REMOVAL OF OVARY(S) Right benign mass SHX COSMETIC SURGERY 05/2022 Tummy Tuck and hernia repair FAMILY HISTORY Problem Relation Age of Onset Hypertension Mother Cancer Maternal Grandmother lung, smoker Breast Cancer Maternal Aunt Social History Tobacco Use Smoking status: Never Smokeless tobacco: Never Vaping Use Vaping Use: Never used Substance Use Topics Alcohol use: Not Currently Drug use: No REVIEW OF SYSTEMS GENERAL: Negative for Malaise, significant weight loss, fever RESPIRATORY: Negative for cough, wheezing and shortness of breath CARDIOVASCULAR: Negative for chest pain, leg swelling and palpitations GI: Negative for abdominal discomfort, blood in stools or black stools and change in bowel habits : Negative for dysuria, frequency and incontinence MUSCULOSKELETAL: Negative for joint pain or swelling, back pain, and muscle pain. SKIN: Negative for lesions, rash, and itching. HEMATOLOGY/LYMPHOLOGY Negative for prolonged bleeding, bruising easily, and swollen nodes. ENDOCRINE: Negative for cold or heat intolerance, polyuria, polydipsia and goiter. NEURO: negative Physical Exam: Constitutional: Pt is a well developed 47 year old female who is alert, oriented and cooperative Eyes: Following during examination. No redness or drainage. Respiratory: RR normal and nonlabored. Even breathing. No evidence of distress or shortness of breath. Psychology: Patient is engaged during conversation. Normal affect and mood. Does not appear depressed or anxious during encounter. Vascular: Dorsalis pedis and posterior tibial pulses palpable as b/l Capillary Fill time < 5 seconds to digits 1-5 b/l Skin temperature warm to warm proximal to distal b/l Hair growth present to digits Neurological: intact light touch/epicritic sensation b/l intact protective sensation no significant neurological deficits Dermatological: Nails 1,2 b/l appear slightly thick and discolored. Webspaces clean and dry 1-4 b/l. Skin appears well hydrated and supple. good color, texture, turgor. No open lesions present. No callosities present. Musculoskeletal/Orthopaedic: Patient has no pain to palpation of b/l feet Foot type is neutral structurally AJ ROM is full with knee extended and flexed 1st MPJ is decreased when loaded and no pain or crepitus are noted with ROM. Mild bunion is present ot b/l feet. Medial deviation of b/l 2nd toe MTJ, STJ are full and free of pain and crepitus. +5/5 muscle strength dorsiflexion, plantarflexion, inversion, eversion b/l Radiographs:n/a ASSESSMENT: (L60.3) Onychodystrophy (primary encounter diagnosis) (B35.1) Toenail fungus (M20.12) Hallux valgus of left foot (M20.11) Hallux valgus of right foot PLAN: A review of the patient's PMH and Podiatric physical exam was completed. We discussed the possible etiologies of discolored, dystrophic, and thickened nails including fungus, yeast, mold as well as in some instances, prior trauma, or mechanical causes such as repetitive microtrauma in shoe gear. We discussed topical medication for discolored toenails which has very low success but no major side effects. We discussed oral medication. Patient will need hepatic testing prior to use. Patient informed of risks associated with Lamisil. We discussed removal of toenails. Will send sample of b/l 1st and 2nd toenail. Can discuss possible medication pending fungal culture. Discussed bunions. No pain. Continue with wider shoes. Roger Horn DPM Podiatry [address] [facility] [address] Dept: [phone] Dept AMB ROOMING INTAKE FLOWSHEET DATA Patient presents with: Left Foot - Established Patient, Follow Up, Nail Fungus Right Foot - Established Patient, Follow Up, Nail Fungus Yeni Lucas LPN documented in this encounter [facility] 10-22-2023 Note HNO ID: [id number] Author: YENI LUCAS LPN Service: ? Author Type: LICENSED NURSE Type: Progress Notes Filed: 10/22/2023 11:29 Note Text: AMB ROOMING INTAKE FLOWSHEET DATA Patient presents with: Left Foot - Established Patient, Follow Up, Nail Fungus Right Foot - Established Patient, Follow Up, Nail Fungus Yeni Lucas LPN [facility] 10-05-2023 Note HNO ID: [id number] Author: JUANA FRANKLIN PA-C Service: ? Author Type: Physician Food Technology Teacher Type: Progress Notes Filed: 10/05/2023 11:06 Note Text: This note was created using [email or web address]. Subjective Harrison Guido is a 47 year old female. HPI Presents with a chief complaint of toenail pain. She states her left toenail has been bothering her over the past 2 days. She had looked at it and thought maybe she had a fungal nail as well. She does get her nails done with gel at the nail salon. She did recently take a trip to [place] and did get her nails done there. She also had showered in a campground shower while there. She has multiple nails that she has noticed some discoloration on both feet. No drainage from the nail. She has not noticed any redness or swelling. Review of Systems Constitutional: Negative. HENT: Negative. Respiratory: Negative. Cardiovascular: Negative. Gastrointestinal: Negative. Musculoskeletal: Toenail pain All other systems reviewed and are negative. PAST MEDICAL HISTORY Diagnosis Date Abnormal uterine bleeding Acute pain of left shoulder Dr. Vera-Ezequiel Allergic rhinitis, cause unspecified Cyst of left ovary BRANDON (generalized anxiety disorder) Herpes zoster without complication Recurrent. [facility] Herpes zoster without mention of complication face Lateral epicondylitis of left elbow Migraine without aura Other hemorrhoids Pulmonary embolism (HCC) after ACL repair Recurrent major depressive disorder, in full remission (HCC) Umbilical hernia Current Outpatient Medications Medication Sig Dispense Refill valACYclovir (VALTREX) 1 gram tablet Take 1,000 mg by mouth as needed (outbreak). meloxicam (MOBIC) 15 mg tablet Take 15 mg by mouth once daily. As needed sertraline (ZOLOFT) 50 mg tablet Take 1 tablet by mouth once daily. 90 tablet 3 No current facility-administered medications for this visit. PAST SURGICAL HISTORY Procedure Laterality Date BREAST AUGMENTATION WITH IMPLANT Bilateral 2020 BREAST AUGMENTATION WITH IMPLANT 2011 COLONOSCOPY 10/10/2021 repeat in 10 years COLONOSCOPY W/BIOPSY SINGLE/MULTIPLE 07/05/2010 Normal Colon EGD TRANSORAL BIOPSY SINGLE/MULTIPLE 07/05/2010 Gastritis EXTRACTION, ERUPTED TOOTH OR EXPOSED ROOT (ELEVATION AND/OR FORCEPS REMOVAL) 06/17/2004 PAST SURGICAL HISTORY OF TVT PAST SURGICAL HISTORY OF Left 2018 ACL repair REMOVAL OF OVARY(S) Right benign mass SHX COSMETIC SURGERY 05/2022 Tummy Tuck and hernia repair FAMILY HISTORY Problem Relation Age of Onset Hypertension Mother Cancer Maternal Grandmother lung, smoker Breast Cancer Maternal Aunt Social History Tobacco Use Smoking status: Never Smokeless tobacco: Never Vaping Use Vaping Use: Never used Substance Use Topics Alcohol use: Not Currently Drug use: No Objective BP 138/76 Pulse (!) 123 Temp 36.3 ?C (97.3 ?F) Resp 16 Wt 76.5 kg (168 lb 10.4 oz) LMP 10/04/2022 (Exact Date) SpO2 98% BMI 26.02 kg/m? Physical Exam Vitals reviewed. Constitutional: Appearance: Normal appearance. HENT: Head: Normocephalic and atraumatic. Feet: Comments: Patient has multiple thickened discolored nails on both feet. She does have a gel manicure on currently as well. No erythema or swelling of the skin surrounding the nail or sign of secondary bacterial infection. Skin: General: Skin is warm and dry. Neurological: Mental Status: She is alert. Assessment and Plan ASSESSMENT/PLAN: 1. Toenail fungus - ICD9: 110.1, ICD10: B35.1 Discussed with patient she may need oral antifungals due to this being on several nails. I did recommend having the gel manicure removed and will have her follow-up with podiatry. - CONSULT TO PODIATRY Juana Franklin PA-C [facility] 10-05-2023 History of Presen t illness Narrative This note was created using igobubbleriter. Subjective Harrison Guido is a 47 year old female. HPI Presents with a chief complaint of toenail pain. She states her left toenail has been bothering her over the past 2 days. She had looked at it and thought maybe she had a fungal nail as well. She does get her nails done with gel at the nail salon. She did recently take a trip to [place] and did get her nails done there. She also had showered in a campground shower while there. She has multiple nails that she has noticed some discoloration on both feet. No drainage from the nail. She has not noticed any redness or swelling. Review of Systems Constitutional: Negative. HENT: Negative. Respiratory: Negative. Cardiovascular: Negative. Gastrointestinal: Negative. Musculoskeletal: Toenail pain All other systems reviewed and are negative. PAST MEDICAL HISTORY Diagnosis Date Abnormal uterine bleeding Acute pain of left shoulder Dr. Vera-Ezequiel Allergic rhinitis, cause unspecified Cyst of left ovary BRANDON (generalized anxiety disorder) Herpes zoster without complication Recurrent. [facility] Herpes zoster without mention of complication face Lateral epicondylitis of left elbow Migraine without aura Other hemorrhoids Pulmonary embolism (HCC) after ACL repair Recurrent major depressive disorder, in full remission (HCC) Umbilical hernia Current Outpatient Medications Medication Sig Dispense Refill valACYclovir (VALTREX) 1 gram tablet Take 1,000 mg by mouth as needed (outbreak). meloxicam (MOBIC) 15 mg tablet Take 15 mg by mouth once daily. As needed sertraline (ZOLOFT) 50 mg tablet Take 1 tablet by mouth once daily. 90 tablet 3 No current facility-administered medications for this visit. PAST SURGICAL HISTORY Procedure Laterality Date BREAST AUGMENTATION WITH IMPLANT Bilateral 2020 BREAST AUGMENTATION WITH IMPLANT 2011 COLONOSCOPY 10/10/2021 repeat in 10 years COLONOSCOPY W/BIOPSY SINGLE/MULTIPLE 07/05/2010 Normal Colon EGD TRANSORAL BIOPSY SINGLE/MULTIPLE 07/05/2010 Gastritis EXTRACTION, ERUPTED TOOTH OR EXPOSED ROOT (ELEVATION AND/OR FORCEPS REMOVAL) 06/17/2004 PAST SURGICAL HISTORY OF TVT PAST SURGICAL HISTORY OF Left 2018 ACL repair REMOVAL OF OVARY(S) Right benign mass SHX COSMETIC SURGERY 05/2022 Tummy Tuck and hernia repair FAMILY HISTORY Problem Relation Age of Onset Hypertension Mother Cancer Maternal Grandmother lung, smoker Breast Cancer Maternal Aunt Social History Tobacco Use Smoking status: Never Smokeless tobacco: Never Vaping Use Vaping Use: Never used Substance Use Topics Alcohol use: Not Currently Drug use: No Objective BP 138/76 Pulse (!) 123 Temp 36.3 C (97.3 F) Resp 16 Wt 76.5 kg (168 lb 10.4 oz) LMP 10/04/2022 (Exact Date) SpO2 98% BMI 26.02 kg/m Physical Exam Vitals reviewed. Constitutional: Appearance: Normal appearance. HENT: Head: Normocephalic and atraumatic. Feet: Comments: Patient has multiple thickened discolored nails on both feet. She does have a gel manicure on currently as well. No erythema or swelling of the skin surrounding the nail or sign of secondary bacterial infection. Skin: General: Skin is warm and dry. Neurological: Mental Status: She is alert. Assessment and Plan ASSESSMENT/PLAN: 1. Toenail fungus - ICD9: 110.1, ICD10: B35.1 Discussed with patient she may need oral antifungals due to this being on several nails. I did recommend having the gel manicure removed and will have her follow-up with podiatry. - CONSULT TO PODIATRY Juana Franklin PA-C documented in this encounter [facility] 10-05-2023 Instructions Juana Franklin PA-C - 10/05/2023 10:[address] Erin Connor [address] [place] [address] PCP documented in this encounter [facility] 07-30-2023 History of Presen t illness Narrative Chief Complaint Patient presents with: Travel Nurse Visit Follow Up: Travel visit HPI Harrison Guido is a 47 year old female who presents here today for Travel advice visit. Patient is travelling to [place] for total of 5 weeks and will be leaving on 08/08. Patient will be staying in [place] with friends. Has direct flight from [place] to [facility]. Discussed CDC recommendations for vaccinations and safety precautions. Patient states that she has been vaccinated for hepatitis B when she worked at [employer] in 2014. Will not be working with wild animals, cave diving, etc so does not need rabies vaccination. Requesting letter stating she is taking Zoloft and valtrex to give to Customs. Past medical history, appointments, medications, allergies reviewed. Previous Medical History PAST MEDICAL HISTORY Diagnosis Date Abnormal uterine bleeding Acute pain of left shoulder Dr. Vera-Ezequiel Allergic rhinitis, cause unspecified Cyst of left ovary BRANDON (generalized anxiety disorder) Herpes zoster without complication Recurrent. Trillium Ewiiaapaayp Herpes zoster without mention of complication face Lateral epicondylitis of left elbow Migraine without aura Other hemorrhoids Pulmonary embolism (HCC) after ACL repair Recurrent major depressive disorder, in full remission (HCC) Umbilical hernia Previous Surgical History PAST SURGICAL HISTORY Procedure Laterality Date BREAST AUGMENTATION WITH IMPLANT Bilateral 2020 BREAST AUGMENTATION WITH IMPLANT 2011 COLONOSCOPY 10/10/2021 repeat in 10 years COLONOSCOPY W/BIOPSY SINGLE/MULTIPLE 07/05/2010 Normal Colon EGD TRANSORAL BIOPSY SINGLE/MULTIPLE 07/05/2010 Gastritis EXTRACTION, ERUPTED TOOTH OR EXPOSED ROOT (ELEVATION AND/OR FORCEPS REMOVAL) 06/17/2004 PAST SURGICAL HISTORY OF TVT PAST SURGICAL HISTORY OF Left 2018 ACL repair REMOVAL OF OVARY(S) Right benign mass SHX COSMETIC SURGERY 05/2022 Tummy Tuck and hernia repair Family History FAMILY HISTORY Problem Relation Age of Onset Hypertension Mother Cancer Maternal Grandmother lung, smoker Breast Cancer Maternal Aunt Patient Allergies ALLERGIES Allergen Reactions Adhesive Tape (Pina* Rash Percocet [Oxycodone* Itching Current Medications Current Outpatient Medications on File Prior to Visit Medication Sig sertraline (ZOLOFT) 50 mg tablet Take 1 tablet by mouth once daily. No current facility-administered medications on file prior to visit. Social History Social History Tobacco Use Smoking status: Never Smokeless tobacco: Never Vaping Use Vaping Use: Never used Substance Use Topics Alcohol use: Not Currently Drug use: No Review of Symptoms REVIEW OF SYSTEMS GENERAL: No weight loss, malaise or fevers RESPIRATORY: Negative for cough, hemoptysis, wheezing, COPD, dyspnea or shortness of breath CARDIOVASCULAR: Negative for chest pain, leg swelling, hypertension, CHF or palpitations GI: No nausea, vomiting, or diarrhea SKIN: Negative for lesions, rash, and itching EXAM: BP 108/68 Pulse 77 Temp 36.7 C (98 F) Resp 16 LMP 10/04/2022 (Exact Date) SpO2 97% General Appearance: Well appearing, alert, in no acute distress, well-hydrated, well nourished.. Skin: Skin color, texture, turgor normal, no suspicious rashes or lesions. Lungs: Lungs clear to auscultation. No wheezing, rhonchi, rales.. Heart: RRR without murmur, gallop, or rubs. No ectopy. Abdomen: Normal abdominal exam, Abdomen soft, non-tender. Bowel sounds normal. No masses, organomegaly. Extremities: No deformities, edema, skin discoloration, clubbing or cyanosis. Good capillary refill. . Health Maintenance List Hepatitis B Vaccine(1 of 3 - 3-dose series) Never done Mammogram Screening due on 08/08/2023 Influenza Vaccine(1) due on 12/15/2023 Covid-19 Vaccine( season) due on 05/23/2024 Diabetes Screening due on 04/24/2025 Pap Testing due on 04/13/2026 HPV Testing due on 04/13/2026 Lipid Screening due on 07/27/2026 DTaP,Tdap,Td Vaccine(3 - Td or Tdap) due on 07/27/2031 Colorectal Cancer Screening due on 10/11/2031 Hepatitis C Screening Completed HIV Screening Completed ASSESSMENT/PLAN: 1. Travel advice encounter - ICD9: V65.49, ICD10: Z71.84 Reviewed CDC recommendations for travel. Refusing COVID booster today. Up to date on vaccinations otherwise. Letter given as requested. Ganesh Winter MD documented in this encounter [facility] 07-18-2023 Miscellaneous Notes Reviewed. Pt called and is notified of providers message and instructions. Pt voices understanding. Pt scheduled with provider on 07/30/23. Gracie Ruiz, JUAN Needs OV for travel visit to discuss concerns and any needed vaccinations prior to travel. Pt states she is going to [place] for 5 wks, leaving 08/08/23. Pt states she needs a letter for [place]'s customs stating pt is taking zoloft. Pt states the flight will be a total of [address] & she is having a lot of anxiety about it because she knows she will not be able to sleep. She is asking if there is something provider would recommend for her either OTC or Rx? [facility] Pt will also need a letter for this medication too. Please advise & pt will pick letter up when completed. Mayra Tovar LPN documented in this encounter [facility] 05-23-2023 History of Presen t illness Narrative 05/23/2023 Patient presents with: Physical SUBJECTIVE: This is a 47 year old that is here today for Above Complaints. Since last office visit has been in good health without ER visits or hospitalizations. Anxiety: doing well on Zoloft. Not attending counseling PAST MEDICAL HISTORY Diagnosis Date Abnormal uterine bleeding Acute pain of left shoulder Dr. Vera-Ortho Allergic rhinitis, cause unspecified Cyst of left ovary BRANDON (generalized anxiety disorder) Herpes zoster without complication Recurrent. Trillium Ewiiaapaayp Herpes zoster without mention of complication face Lateral epicondylitis of left elbow Migraine without aura Other hemorrhoids Pulmonary embolism (HCC) after ACL repair Recurrent major depressive disorder, in full remission (HCC) Umbilical hernia ALLERGIES Adhesive Tape (Rosins) and Percocet [Oxycodone-Acetaminophen] MEDICATIONS Current Outpatient Medications Medication Sig sertraline (ZOLOFT) 50 mg tablet Take 1 tablet by mouth once daily. No current facility-administered medications for this visit. Medications and allergies reviewed by this provider. SOCIAL HISTORY Social History Tobacco Use Smoking status: Never Smokeless tobacco: Never Vaping Use Vaping Use: Never used Substance Use Topics Alcohol use: Not Currently Drug use: No REVIEW OF SYSTEMS GENERAL: No weight loss, malaise or fevers HEENT: No changes in hearing or vision, no nose bleeds or other nasal problems NECK: Negative for lumps, goiter, pain and significant neck swelling RESPIRATORY: Negative for cough, hemoptysis, wheezing, COPD, dyspnea or shortness of breath CARDIOVASCULAR: Negative for chest pain, leg swelling, hypertension, CHF or palpitations GI: No nausea, vomiting, or diarrhea : No history of dysuria, frequency or incontinence SITE ADMINISTRATOR: Negative for abnormal vaginal bleeding, abnormal vaginal discharge MUSCULOSKELETAL: Negative for joint pain or swelling, back pain. Will be having surgery next week on torn bicep SKIN: Negative for lesions, rash, and itching. Does have some peeling skin from burn in tanning bed on back and between breasts PSYCH: Negative for sleep disturbance, mood disorder and recent psychosocial stressors HEMATOLOGY/LYMPHOLOGY: Negative for prolonged bleeding, bruising easily or swollen nodes ENDOCRINE: Negative for cold or heat intolerance, polyuria, polydipsia and goiter NEURO: No history of syncope, paralysis, seizures or tremors and All other reviewed and negative other than HPI. OBJECTIVE: BP 96/76 Pulse 72 Temp 36.6 C (97.9 F) (Right Tympanic) Resp 16 Ht 171.5 cm (5' 7.5) Wt 74.1 kg (163 lb 6.4 oz) LMP 10/04/2022 (Exact Date) SpO2 97% BMI 25.21 kg/m . Vital signs reviewed by this provider. APPEARANCE Well appearing, alert, in no acute distress, well-hydrated, well nourished. EYES conjunctiva and sclera normal. EARS External ears normal, canals clear HEART RRR with normal S1 and S2, no murmurs, no gallops, no JVD appreciated LUNG clear to auscultation. No wheezes, rhonchi or rales EXTREMITIES Extremities normal, No deformities, No skin discoloration, No edema SKIN Skin color, texture, turgor normal, no suspicious rashes or lesions Component Latest Ref Rng & Units 04/24/2022 05/01/2022 WBC 3.70 - 11.00 k/uL 10.49 RBC 3.90 - 5.20 m/uL 4.26 Hemoglobin 11.5 - 15.5 g/dL 13.6 Hematocrit 36.0 - 46.0 % 42.0 MCV 80.0 - 100.0 fL 98.6 MCH 26.0 - 34.0 pg 31.9 MCHC 30.5 - 36.0 g/dL 32.4 RDW-CV 11.5 - 15.0 % 15.6 (H) Platelet Count 150 - 400 k/uL 234 MPV 9.0 - 12.7 fL 11.3 Neut% % 74.2 Abs Neut (ANC) 1.45 - 7.50 k/uL 7.79 (H) Lymph% % 17.9 Abs Lymph 1.00 - 4.00 k/uL 1.88 Cotton% % 6.5 Abs Cotton <0.87 k/uL 0.68 Eosin% % 0.6 Abs Eosin <0.46 k/uL 0.06 Baso% % 0.4 Abs Baso <0.11 k/uL 0.04 Immature Gran % % 0.4 IMMATURE GRANS (ABS) <0.10 k/uL 0.04 NRBC /100 WBC 0.0 Absolute nRBC <0.01 k/uL <0.01 DTYPE Auto Protein, Total 6.3 - 8.0 g/dL 6.8 Albumin 3.9 - 4.9 g/dL 4.3 Calcium 8.5 - 10.2 mg/dL 9.5 Bilirubin, Total 0.2 - 1.3 mg/dL 0.2 Alkaline Phosphatase 34 - 123 U/L 45 AST 13 - 35 U/L 28 ALT 7 - 38 U/L 24 Glucose 74 - 99 mg/dL 58 (L) BUN 7 - 21 mg/dL 17 Creatinine 0.58 - 0.96 mg/dL 0.91 Sodium 136 - 144 mmol/L 136 Potassium 3.7 - 5.1 mmol/L 4.3 Chloride 97 - 105 mmol/L 101 CO2 22 - 30 mmol/L 23 Anion Gap 9 - 18 mmol/L 12 eGFR >=60 mL/min/1.73m 78 Component Latest Ref Rng & Units 07/27/2021 Total Cholesterol, Nonfasting <200 mg/dL 238 (H) Triglycerides, Nonfasting <150 mg/dL 58 HDL Cholesterol, Nonfasting >39 mg/dL 87 LDL Cholesterol, Nonfasting <100 mg/dL 139 (H) Non HDL Cholesterol, Nonfasting <130 mg/dL 151 (H) VLDL Cholesterol, Nonfasting <30 mg/dL 12 Total Chol/HDL Ratio, Nonfasting <5.10 mg/dL 2.74 LDL/HDL Ratio, Nonfasting <2.54 mg/dL 1.60 Hepatitis B Vaccine(1 of 3 - 3-dose series) Never done Mammogram Screening due on 08/08/2023 Influenza Vaccine(1) due on 12/15/2023 Covid-19 Vaccine( season) due on 05/23/2024 Diabetes Screening due on 04/24/2025 Pap Testing due on 04/13/2026 HPV Testing due on 04/13/2026 Lipid Screening due on 07/27/2026 DTaP,Tdap,Td Vaccine(3 - Td or Tdap) due on 07/27/2031 Colorectal Cancer Screening due on 10/11/2031 Hepatitis C Screening Completed HIV Screening Completed ASSESSMENT/PLAN: 1. Annual physical exam - ICD9: V70.0, ICD10: Z00.00 (primary diagnosis) - Counseled on healthy diet and regular exercise - Calcium intake with supplements or by diet of 1000 mg/day for under 50, 7468-2335 mg/day for 50+ - Follow up for annual exam in one year 2. Screening for hyperlipidemia - ICD9: V77.91, ICD10: Z13.220 - LIPID PANEL BASIC 3. Generalized anxiety disorder with panic attacks - ICD9: 300.02, 300.01, ICD10: F41.1, F41.0 - controlled on current regime Indu Foley APRN.KESHA Prescription instructions reviewed with patient as applicable. Patient advised if symptoms do not improve or if symptoms worsen sooner, to contact their primary care physician. Potential red flag symptoms discussed with the patient. Reviewed appropriate action plan to take if red flag symptoms occur. Patient agreeable to treatment plan. documented in this encounter [facility] 10-15-2022 History of Presen t illness Narrative Patient underwent hysteroscopy with Jessica endometrial ablation at [facility] on 10/12/2022 without complications. She was discharged home with routine instructions and follow-up as needed Anai Mendoza MD documented in this encounter [facility] 09-26-2022 History and physical note Pre-Op History and Physical HPI: The patient is a 46 year old female presenting for pre-operative visit. She is scheduled for hysteroscopy with endometrial ablation, for metromenorrhagia on 10/12/22. Procedure discussed along with risks, benefits and complications. Other alternatives discussed for management. Consent form signed? Yes. PAST MEDICAL HISTORY Diagnosis Date Abnormal uterine bleeding Acute pain of left shoulder Dr. Vera-Ezequiel Allergic rhinitis, cause unspecified Cyst of left ovary BRANDON (generalized anxiety disorder) Herpes zoster without complication Recurrent. Trillium Ewiiaapaayp Herpes zoster without mention of complication face Lateral epicondylitis of left elbow Migraine without aura Other hemorrhoids Pulmonary embolism (HCC) after ACL repair Recurrent major depressive disorder, in full remission (HCC) Umbilical hernia PAST SURGICAL HISTORY Procedure Laterality Date BREAST AUGMENTATION WITH IMPLANT Bilateral 2020 BREAST AUGMENTATION WITH IMPLANT 2011 COLONOSCOPY 10/10/2021 repeat in 10 years COLONOSCOPY W/BIOPSY SINGLE/MULTIPLE 07/05/2010 Normal Colon EGD TRANSORAL BIOPSY SINGLE/MULTIPLE 07/05/2010 Gastritis EXTRACTION, ERUPTED TOOTH OR EXPOSED ROOT (ELEVATION AND/OR FORCEPS REMOVAL) 06/17/2004 PAST SURGICAL HISTORY OF TVT PAST SURGICAL HISTORY OF Left 2018 ACL repair REMOVAL OF OVARY(S) Right benign mass SHX COSMETIC SURGERY Current Outpatient Medications Medication Sig Dispense Refill norethindrone (AYGESTIN) 5 mg tablet Take 1 tablet by mouth as directed. 1 tablet 3 times daily until bleeding stops then twice daily for 2 days then 1 tablet daily for 2 days. 30 tablet 0 norethindrone acetate (AYGESTIN ORAL) Take by mouth. sertraline (ZOLOFT) 50 mg tablet Take 1 tablet by mouth once daily. 90 tablet 3 valACYclovir (VALTREX) 1 gram Take 2 tablets PO at the first sign of shingles, and then 2 more tabs in 12 hours. No current facility-administered medications for this visit. ALLERGIES: Adhesive Tape (Rosins) and Percocet [Oxycodone-Acetaminophen] PERSONAL HISTORY: Social History Tobacco Use Smoking status: Never Smokeless tobacco: Never Vaping Use Vaping Use: Never used Substance Use Topics Alcohol use: Not Currently Drug use: No FAMILY HISTORY: FAMILY HISTORY Problem Relation Age of Onset Hypertension Mother Cancer Maternal Grandmother lung, smoker Breast Cancer Maternal Aunt REVIEW OF SYMPTOMS: GENERAL: denies fevers or chills ENDOCRINOLOGY: has not been on steroids Cardiology : denies palpitations or chest pain Respiratory: denies SOB or cough Hematology: denies history of prolonged bleeding or easy bruising or VTE Allergy: Denies history of personal or family history of allergy to anesthesia PHYSICAL EXAMINATION: VITALS: Last menstrual period 09/03/2022. GENERAL: The patient is well nourished, well hydrated in no acute distress. , The patient is oriented to time, place, and person. NECK: Supple. No lynphadenopathy, normal thyroid, no thyromegaly. LUNGS: Clear to auscultation bilaterally. no wheezes, rhonchi or rales HEART: Regular rate and rhythm, Normal heart sounds, and No murmurs or gallops IMPRESSION: metromenrrhagia PLAN: The risks/benefits/alternatives and personal involved for the planned hysteroscopy with endometrial ablation were reviewed with the patient. Her questions were answered to her satisfaction and she desires to proceed. Consent was signed. I reviewed with her postop instructions and expectations. I have reviewed and updated past medical and surgical history, medications and allergies Anai Mendoza M.D. documented in this encounter [facility] 09-10-2022 Miscellaneous Notes Notified patient that REBEKAH is at the hospital. Patient will call the pharmacy and have it transferred electronically. Sheila Red RN Addended by: ANGELA CASTRO LPN on: 09/10/2022 04:06 PM Modules accepted: Orders Aygestin was sent to [facility]. Patient states that [facility] [place] Order signed. Yashira Lester APRN.CNM Patient was seen by Dr. Mendoza last week on 09/06 for irregular, heavy menses. Hysteroscopy with endometrial ablation is being scheduled. Patient calling requesting a prescription for Aygestin for the bleeding until surgery can be done. Patient was on this medication in the past. Patient requesting message be sent to provider developer relations manager in Dr. Mendoza's absence. Please file if appropriate. Will only call patient back if there is a problem. Ynes Colby RN documented in this encounter [facility] 08-10-2022 Miscellaneous Notes Patient notified and verbalized understanding Laura Lo Cma Please let patient know her mammogram is normal. Patient should continue with yearly screening mammograms. documented in this encounter [facility] 08-10-2022 Miscellaneous Notes August 13, 2022 PID: [id number] Harrison Guido [address] [place] [address] Dear Ms. Guido, We are pleased to inform you that the results of your recent breast imaging exam on 08/08/2022 are normal. Your mammogram demonstrates that you have dense breast tissue, which could hide abnormalities. Dense breast tissue, in and of itself, is a relatively common condition. Therefore, this information is not provided to cause undue concern; rather, it is to raise your awareness and promote discussion with your health care provider regarding the presence of dense breast tissue in addition to other risk factors. Early detection of cancer is very important. We also understand recommendations regarding breast cancer screening are controversial. Please discuss with your primary care provider which strategy is best for you and whether a mammogram is right for you. Your imaging studies and report will be kept on file at [facility] as part of your permanent medical record and are available for your continuing care. Thank you for allowing us to help in meeting your health care needs. Sincerely, Dr. Thomas Interpreting Radiologist [facility] (Normal over 40) documented in this encounter [facility] 08-08-2022 History of Presen t illness Narrative Radiology Service Progress Note PATIENT NAME: Harrison Guido DATE OF SERVICE: August 08, 2022 TIME: 10:10 AM PATIENT IDENTITY VERIFICATION COMPLETED USING TWO (2) IDENTIFIERS: Name and Date of confirmed by patient verbally. FALL SCREENING: Has the patient had 2 falls in the last year or 1 fall with injury or currently using an Ambulatory Assistive Device (Walker, Cane, Wheelchair, Crutches, etc.)? No PATIENT GENDER DATA: Female. status: : No status: NO. PATIENT RELEVANT IMPLANT DATA REVIEWED: Not Applicable RADIOLOGY DEPARTMENT: Mammography PERIPHERAL IV DATA: Not applicable SIGNED BY: Sandoval Fang August 08, 2022 10:10 AM documented in this encounter [facility] 05-01-2022 Miscellaneous Notes Surgical clearance information forwarded to Dr Rao as requested by patient and PCP ----- Message from Ganesh Winter MD sent at 05/01/2022 3:29 PM EST ----- Repeat WBC normal and neutrophils are trending down. Will clear for procedure. Please fax EKG and last OV to Dr. Angelic Rao's office. documented in this encounter [facility] 04-25-2022 Miscellaneous Notes TC to patient who verbalizes understanding. Pt advised to hydrate before lab work. No further questions at this time. RENETTA Montano I would want to get it back before clearing her. I have has surgeons refuse to operate with mild elevations in WBC in the past, so want to get this checked out before it is a problem. Patient notified. Patient questions if she needs to repeat the CBC + diff lab before being cleared for surgery. Please advise. Laura Flynn MA Blood work negative for anemia or kidney dysfunction. Sugar level was low. Recommend eating 3 meals per day to prevent hypoglycemia. WBC mildly elevated. This is possibly related to some dehydration after just coming from the gym vs infection vs inflammation. Recommend checking CBC with diff in the next week. Make sure to drink plenty of water before this blood draw. Call with concerns for illness/infection. documented in this encounter [facility] 04-24-2022 History of Presen t illness Narrative Radiology Service Progress Note PATIENT NAME: Harrison Guido DATE OF SERVICE: April 24, 2022 TIME: 2:55 PM PATIENT IDENTITY VERIFICATION COMPLETED USING TWO (2) IDENTIFIERS: Name and Date of confirmed by patient verbally. FALL SCREENING: Has the patient had 2 falls in the last year or 1 fall with injury or currently using an Ambulatory Assistive Device (Walker, Cane, Wheelchair, Crutches, etc.)? No PATIENT GENDER DATA: Female. status: : No status: NO. PATIENT RELEVANT IMPLANT DATA REVIEWED: Yes RADIOLOGY DEPARTMENT: General X-ray: Exam(s) Completed: Chest X-Ray PERIPHERAL IV DATA: Not applicable SIGNED BY: RT Ivan(R) April 24, 2022 2:55 PM documented in this encounter [facility] 04-24-2022 History of Presen t illness Narrative Chief Complaint Patient presents with: Follow Up: 6 month HPI Harrison Guido is a 46 year old female who presents here today for 6 month follow up. Patient states that she is following up with Dr. Saini at [facility] for umbilical hernia repair and tummy tuck. Scheduled 05/17 under general anesthesia. Patient has not had any pre op testing and thought they already faxed information to our office. Able to climb flight of stairs without chest pain/SOB. Working out at the gym for 60-90 minutes daily. Noted that she has history of PE after ACL repair. Has spoken with surgeon about this already. Denies fever/chills, chest pain, SOB, wheezing, LE edema, claudication, weight loss. Started patient on Zoloft 50 mg daily at last OV 9 months ago for uncontrolled anxiety without depression. States that she thinks the medication is working great. Improved: feeling anxious/nervous, excessive worrying, inability to control her worrying, racing thoughts, panic symptoms. Has not had any side effects or manic symptoms. Denies SI/HI. Past medical history, appointments, medications, allergies reviewed. Previous Medical History PAST MEDICAL HISTORY Diagnosis Date Abnormal uterine bleeding Acute pain of left shoulder Dr. Vera-Ezequiel Allergic rhinitis, cause unspecified Cyst of left ovary BRANDON (generalized anxiety disorder) Herpes zoster without complication Recurrent. Tr[facility]ium Ewiiaapaayp Herpes zoster without mention of complication face Lateral epicondylitis of left elbow Migraine without aura Other hemorrhoids Pulmonary embolism (HCC) after ACL repair Recurrent major depressive disorder, in full remission (HCC) Previous Surgical History PAST SURGICAL HISTORY Procedure Laterality Date BREAST AUGMENTATION WITH IMPLANT Bilateral 2020 BREAST AUGMENTATION WITH IMPLANT 2011 COLONOSCOPY 10/10/2021 repeat in 10 years COLONOSCOPY W/BIOPSY SINGLE/MULTIPLE 07/05/2010 Normal Colon EGD TRANSORAL BIOPSY SINGLE/MULTIPLE 07/05/2010 Gastritis EXTRACTION, ERUPTED TOOTH OR EXPOSED ROOT (ELEVATION AND/OR FORCEPS REMOVAL) 06/17/2004 PAST SURGICAL HISTORY OF TVT PAST SURGICAL HISTORY OF Left 2018 ACL repair REMOVAL OF OVARY(S) Right benign mass SHX COSMETIC SURGERY Family History FAMILY HISTORY Problem Relation Age of Onset Hypertension Mother Cancer Maternal Grandmother lung, smoker Breast Cancer Maternal Aunt Patient Allergies ALLERGIES Allergen Reactions Adhesive Tape (Pina* Rash Percocet [Oxycodone* Itching Current Medications Current Outpatient Medications on File Prior to Visit Medication Sig Goqox-4-OGC-EPA-Fish Oil 1,000 mg (120 mg-180 mg) cap Take 2 g by mouth twice daily. valACYclovir (VALTREX) 1 gram Take 2 tablets PO at the first sign of shingles, and then 2 more tabs in 12 hours. sertraline (ZOLOFT) 50 mg tablet Take 1 tablet by mouth once daily. No current facility-administered medications on file prior to visit. Social History Social History Tobacco Use Smoking status: Never Smokeless tobacco: Never Vaping Use Vaping Use: Never used Substance Use Topics Alcohol use: Not Currently Drug use: No Review of Symptoms REVIEW OF SYSTEMS GENERAL: No weight loss, malaise or fevers RESPIRATORY: Negative for cough, hemoptysis, wheezing, COPD, dyspnea or shortness of breath CARDIOVASCULAR: Negative for chest pain, leg swelling, hypertension, CHF or palpitations GI: No nausea, vomiting, or diarrhea SKIN: Negative for lesions, rash, and itching EXAM: BP 102/66 Pulse 81 Resp 16 LMP 10/10/2021 (Exact Date) SpO2 96% General Appearance: Well appearing, alert, in no acute distress, well-hydrated, well nourished.. Skin: Skin color, texture, turgor normal, no suspicious rashes or lesions. Lungs: Lungs clear to auscultation. No wheezing, rhonchi, rales.. Heart: RRR without murmur, gallop, or rubs. No ectopy. Abdomen: Abdomen soft, non-tender. Bowel sounds normal. No masses, organomegaly, Positive for reducible umbilical hernia. Extremities: No deformities, edema, skin discoloration, clubbing or cyanosis. Good capillary refill. . Health Maintenance List HEPATITIS B(1 of 3 - 3-dose series) Never done COVID-19 VACCINE(3 - Booster for Pfizer series) due on 07/25/2021 INFLUENZA(1) due on 02/15/2022 MAMMOGRAM due on 08/03/2022 DIABETES SCREEN due on 07/27/2024 PAP TESTING due on 04/13/2026 HPV TESTING due on 04/13/2026 LIPID SCREEN due on 07/27/2026 DTAP,TDAP,TD(3 - Td or Tdap) due on 07/27/2031 COLORECTAL CANCER SCREENING due on 10/11/2031 HEPATITIS C SCREENING Completed HIV SCREENING Completed Data reviewed Component Latest Ref Rng & Units 07/27/2021 10/03/2021 WBC 3.70 - 11.00 k/uL 9.25 10.62 RBC 3.90 - 5.20 m/uL 4.78 4.45 Hemoglobin 11.5 - 15.5 g/dL 15.5 14.6 Hematocrit 36.0 - 46.0 % 47.0 (H) 43.7 MCV 80.0 - 100.0 fL 98.3 98.2 MCH 26.0 - 34.0 pg 32.4 32.8 MCHC 30.5 - 36.0 g/dL 33.0 33.4 RDW-CV 11.5 - 15.0 % 14.2 14.6 Platelet Count 150 - 400 k/uL 261 262 MPV 9.0 - 12.7 fL 11.3 10.8 Neut% % 77.9 Abs Neut (ANC) 1.45 - 7.50 k/uL 8.28 (H) Lymph% % 14.9 Abs Lymph 1.00 - 4.00 k/uL 1.58 Cotton% % 6.2 Abs Cotton <0.87 k/uL 0.66 Eosin% % 0.4 Abs Eosin <0.46 k/uL 0.04 Baso% % 0.4 Abs Baso <0.11 k/uL 0.04 Immature Gran % % 0.2 IMMATURE GRANS (ABS) <0.10 k/uL <0.03 NRBC /100 WBC 0.0 Absolute nRBC <0.01 k/uL <0.01 <0.01 DTYPE Auto Protein, Total 6.3 - 8.0 g/dL 8.2 (H) Albumin 3.9 - 4.9 g/dL 5.2 (H) Calcium 8.5 - 10.2 mg/dL 10.3 (H) Bilirubin, Total 0.2 - 1.3 mg/dL 0.4 Alkaline Phosphatase 34 - 123 U/L 51 AST 13 - 35 U/L 31 Glucose 74 - 99 mg/dL 79 BUN 7 - 21 mg/dL 21 Creatinine 0.58 - 0.96 mg/dL 1.01 (H) Sodium 136 - 144 mmol/L 139 Potassium 3.7 - 5.1 mmol/L 4.3 Chloride 97 - 105 mmol/L 99 CO2 22 - 30 mmol/L 27 Anion Gap 9 - 18 mmol/L 13 ALT 7 - 38 U/L 30 eGFR- >60 eGFR-All Other Races . 59 Total Cholesterol, Nonfasting <200 mg/dL 238 (H) Triglycerides, Nonfasting <150 mg/dL 58 HDL Cholesterol, Nonfasting >39 mg/dL 87 LDL Cholesterol, Nonfasting <100 mg/dL 139 (H) Non HDL Cholesterol, Nonfasting <130 mg/dL 151 (H) VLDL Cholesterol, Nonfasting <30 mg/dL 12 Total Chol/HDL Ratio, Nonfasting <5.10 mg/dL 2.74 LDL/HDL Ratio, Nonfasting <2.54 mg/dL 1.60 HIV 12 Combo (Ag/Ab) Non Reactive Non Reactive HIV-1/2 AB Test Not Indicated HIV Interpretation Negative TSH 0.270 - 4.200 uU/mL 2.280 Free T4 0.9 - 1.7 ng/dL 1.3 Hep C Antibody IA Negative Negative EKG: NSR at 74 bpm, Possible left atrial enlargement, borderline EKG. ASSESSMENT/PLAN: 1. Pre-op evaluation - ICD9: V72.84, ICD10: Z01.818 (primary diagnosis) Based on the patient's history, physical, functional status, and ACS risk score, he has an 0.4% chance of a serious adverse cardiac event. This is average risk for his age an the planned operation. The risk is below the recommended threshold for further evaluation. Therefore, I do not recommend further preoperative testing and he may proceed with the planned operation. I recommend this risk assessment be incorporated into the overall discussion on risks and benefits of this operation. - ECG COMPLETE - CBC - COMP METABOLIC PANEL - HCG QUAL UR B/O 2. Generalized anxiety disorder with panic attacks - ICD9: 300.02, 300.01, ICD10: F41.1, F41.0 Controlled on current regimen. Refill Zoloft. - SERTRALINE 50 MG TABLET Ganesh Winter MD documented in this encounter [facility] 02-14-2022 History of Presen t illness Narrative 02/14/2022 Patient presents with: Derm Problem: Inside right hand; had blood blister. Healing and has a dry raised area, painful SUBJECTIVE: This is a 46 year old that is here today for Above Complaints. 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 Blood blister resolved but has a raised area where it was. Reports the end of it is tender to touch. Denies fever, chills, increasing erythema, excessive warmth or drainage. PAST MEDICAL HISTORY Diagnosis Date Abnormal uterine bleeding Acute pain of left shoulder Dr. Vera-Ezequiel Allergic rhinitis, cause unspecified Cyst of left ovary BRANDON (generalized anxiety disorder) Herpes zoster without complication Recurrent. Trillium Ewiiaapaayp Herpes zoster without mention of complication face Lateral epicondylitis of left elbow Migraine without aura Other hemorrhoids Pulmonary embolism (HCC) after ACL repair Recurrent major depressive disorder, in full remission (HCC) ALLERGIES Adhesive Tape (Rosins) and Percocet [Oxycodone-Acetaminophen] MEDICATIONS Current Outpatient Medications Medication Sig sertraline (ZOLOFT) 50 mg tablet Take 1 tablet by mouth once daily. Ulvvu-4-XNV-EPA-Fish Oil (FISH OIL) 1,000 mg (120 mg-180 mg) cap Take 2 g by mouth twice daily. valACYclovir (VALTREX) 1 gram Take 2 tablets PO at the first sign of shingles, and then 2 more tabs in 12 hours. No current facility-administered medications for this visit. Medications and allergies reviewed by this provider. SOCIAL HISTORY Social History Tobacco Use Smoking status: Never Smokeless tobacco: Never Vaping Use Vaping Use: Never used Substance Use Topics Alcohol use: Not Currently Drug use: No REVIEW OF SYSTEMS All other reviewed and negative other than HPI. OBJECTIVE: BP 102/60 Pulse 70 Resp 18 Wt 68.2 kg (150 lb 6.4 oz) LMP 10/10/2021 (Exact Date) SpO2 98% BMI 24.28 kg/m . Vital signs reviewed by this provider. APPEARANCE Well appearing, alert, in no acute distress, well-hydrated, well nourished. RIGHT PALM: approximately 2 cm x 0.8 cm elongated raised slightly pinked area. TTP to bottom. No surrounding erythema, excessive warmth or drainage from area. 2+ radial pulse. Cap refill WNL HEPATITIS B(1 of 3 - 3-dose series) Never done COVID-19 VACCINE(3 - Booster for Pfizer series) due on 10/28/2021 INFLUENZA(1) due on 02/15/2022 MAMMOGRAM due on 08/03/2022 DIABETES SCREEN due on 07/27/2024 PAP TESTING due on 04/13/2026 HPV TESTING due on 04/13/2026 LIPID SCREEN due on 07/27/2026 DTAP,TDAP,TD(3 - Td or Tdap) due on 07/27/2031 COLORECTAL CANCER SCREENING due on 10/11/2031 HEPATITIS C SCREENING Completed HIV SCREENING Completed ASSESSMENT/PLAN: 1. Scar of hand - ICD9: 709.2, ICD10: L90.5 - does not appear to be infected at this time, has appearance of keloid - no red flag symptoms or exam finding - red flag symptoms discussed, verbalizes understanding - will have her follow-up with dermatology for further evaluation- she sees Eduar Morgan so she will follow-up with them Indu Foley APRN.KESHA Prescription instructions reviewed with patient as applicable. Patient advised if symptoms do not improve or if symptoms worsen sooner, to contact their primary care physician. Potential red flag symptoms discussed with the patient. Reviewed appropriate action plan to take if red flag symptoms occur. Patient agreeable to treatment plan. I spent a total of 25 minutes on the date of the service which included preparing to see the patient, [id number] patient care, completing clinical documentation, obtaining and/or reviewing separately obtained history, performing a medically appropriate examination, counseling and educating the patient/family/caregiver, and ordering medications, tests, or procedures. documented in this encounter [facility] 10-25-2021 Miscellaneous Notes Patient was notified and does not need letter Carlene Connell Ma Please notify patient that she is positive for COVID. Recommend rest, supportive care, and should isolate until: At least 5 days have passed since symptoms first appeared and At least 24 hours have passed since last fever without the use of fever-reducing medications and Symptoms (e.g., cough, shortness of breath) have improved. Should wear mask for at least 5 days after he ends isolation to prevent spread to others. Will send a letter for work to [employer] with the above information if needed. Since symptoms started 5-6 days ago, will have her continue to mask. Call if symptoms are worsening or go to the ED with red flag symptoms as discussed in office. documented in this encounter [facility] 10-10-2021 Nurse Note Abdomen soft non-distended. Will continue to monitor. documented in this encounter [facility] 10-10-2021 History and physical note UPDATED PROCEDURAL SEDATION HISTORY AND PHYSICAL EXAMINATION SERVICE DATE: 10/10/2021 SERVICE TIME: 9:25 AM PHYSICAL EXAM MUST BE COMPLETED ON ADMISSION PROCEDURE: Procedure Indications: The History and Physical (completed in the past 30 days) has been reviewed and the patient has been examined. The contents accurately reflect the patient's condition with the following additions or revisions since the H&P was completed. ASA Class: ASA Class:: Patient with mild systemic disease Examination indicates no changes. AIRWAY: Airway Visualization of Uvula: Yes Mouth opening greater than 2 fingerbreadths: Yes Neck Full Range of Motion: Yes LUNGS: Lungs clear to auscultation CARDIAC: Regular rhythm,Regular rate Provisional Diagnosis/Treatment Plan: screening colonoscopy SEDATION GOAL: Moderate This H&P can be found in the attached. SIGNATURE: Vin Aguilar MD PATIENT NAME: Harrison Guido DATE: October 10, 2021 TIME: 9:24 AM Images from the original note were not included. HISTORY AND PHYSICAL Harrison Guido 1975 REFERRING PHYSICIAN: Ganesh Winter,* CHIEF COMPLAINT: Consult (colon screening) HPI: The patient is a 45 year old female referred for screening endoscopy. Harrison notes she had a recent GI illness with diarrhea. States the diarrhea resolved but stools are still somewhat irregular. She is taking a probiotic which is helping. She notes past issues with hemorrhoids and has seen Dr. Aguilar for this. Patient denies any change in bowel habits outside of her very recent GI illness and denies weight changes, blood in stools, black tarry stools or abdominal pain. Denies family history of colon issues. The patient notes no upper GI complaints. Harrison has undergone prior endoscopy. Most recent colonoscopy 07/05/[address] Aguilar without concerning findings at that time. Patient denies chest pain, shortness of breath or recent hospitalizations. Denies problems with sedation in the past. PAST MEDICAL HISTORY PAST MEDICAL HISTORY Diagnosis Date Abnormal uterine bleeding Acute pain of left shoulder Dr. Vera-Ezequiel Allergic rhinitis, cause unspecified Cyst of left ovary BRANDON (generalized anxiety disorder) Herpes zoster without complication Recurrent. Trillium Ewiiaapaayp Herpes zoster without mention of complication face Lateral epicondylitis of left elbow Migraine without aura Other hemorrhoids Pulmonary embolism (HCC) after ACL repair Recurrent major depressive disorder, in full remission (HCC) PAST SURGICAL HISTORY PAST SURGICAL HISTORY Procedure Laterality Date BREAST AUGMENTATION WITH IMPLANT Bilateral 2020 BREAST AUGMENTATION WITH IMPLANT 2011 COLONOSCOPY W/BIOPSY SINGLE/MULTIPLE 07/05/2010 Normal Colon EGD TRANSORAL BIOPSY SINGLE/MULTIPLE 07/05/2010 Gastritis EXTRACTION, ERUPTED TOOTH OR EXPOSED ROOT (ELEVATION AND/OR FORCEPS REMOVAL) 06/17/2004 PAST SURGICAL HISTORY OF TVT PAST SURGICAL HISTORY OF Left 2018 ACL repair REMOVAL OF OVARY(S) Right benign mass CURRENT MEDICATIONS Current Outpatient Medications Medication Sig Morqu-4-KAK-EPA-Fish Oil (FISH OIL) 1,000 mg (120 mg-180 mg) cap Take 2 g by mouth twice daily. sertraline (ZOLOFT) 50 mg tablet Take 1 tablet by mouth once daily. valACYclovir (VALTREX) 1 gram Take 2 tablets PO at the first sign of shingles, and then 2 more tabs in 12 hours. No current facility-administered medications for this visit. ALLERGIES: Adhesive Tape (Rosins) and Percocet [Oxycodone-Acetaminophen] PERSONAL HISTORY: SOCIAL HISTORY Social History Tobacco Use Smoking status: Never Smoker Smokeless tobacco: Never Used Vaping Use Vaping Use: Never used Substance Use Topics Alcohol use: Not Currently Drug use: No FAMILY HISTORY: FAMILY HISTORY FAMILY HISTORY Problem Relation Age of Onset Hypertension Mother Cancer Maternal Grandmother lung, smoker Breast Cancer Maternal Aunt REVIEW OF SYMPTOMS: The review of systems data was entered by the nurse and reviewed by tn Nursing Notes: Julia Chang RN 08/22/2021 1:23 PM Signed REVIEW OF SYSTEMS: General: The patient denies fatigue, denies weight loss, denies weight gain, denies feeling hot, and denies feelings of cold. Eyes: The patient denies glaucoma, denies eye injury/surgery, does not wear glasses or contacts. Ear/Nose/Throat: The patient denies allergies, denies hayfever, denies ear infections, and denies bloody noses. Cardiovascular: The patient denies chest pain, denies heart disease, denies high blood pressure,denies cardiac stent, denies prior heart attack, denies irregular heart beat, NOTES high cholesterol, denies poor circulation, denies heart failure, other cardiac issues, denies claudication, denies cold feet, denies peripheral arterial stent. Respiratory: The patient denies tuberculosis, denies pneumonia, NOTES frequent cough, NOTES pulmonary embolism, denies shortness of breath, and denies coughing up blood. Gastrointestinal: The patient denies difficulty swallowing, denies acid reflux, denies ulcers, denies vomiting, denies jaundice/hepatitis, denies gallbladder problems, denies black or tarry stools, NOTES hemorrhoids, denies bleeding from rectum, denies diverticulitis, denies constipation, denies diarrhea, denies loss of stool control, and denies hernias. Kidney/Bladder: The patient denies kidney stones, denies urine infections, and denies bloody urine. Skin: The patient denies a history of skin cancer, denies bleeding/changing moles, and denies a history of skin rash. Neurologic: The patient denies a history of epilepsy/convulsions, NOTES headaches, denies head/spinal injuries, and denies stroke/TIA. Psychiatric: The patient NOTES psychiatric medications, NOTES depression, and denies voices, denies substance abuse. Endocrine: The patient denies thyroid disorders, denies diabetes, and denies hormonal problems. Hematologic: The patient denies a history of bruising, denies bleeding, and denies anemia, NOTES blood clots. Infections: The patient denies a history of measles and mumps, denies rheumatic fever, and denies sexually transmitted diseases. Musculoskeletal: The patient denies back pain/injury, NOTES back problems, denies sciatica, denies knee/foot trouble, denies arthritis, or denies gout. When was patient's last Mammogram screening? 2021 Last Colonoscopy: 2010 Julia Chang RN I have confirmed and edited as necessary, the PFSH and ROS obtained by others. Gracie Freeman PA-C PHYSICAL EXAMINATION: General: The patient is 45 year old female, well nourished, well hydrated in no acute distress. The patient is oriented to time, place, and person. VITALS: Blood pressure 112/72, pulse 99, temperature 36.3 C (97.3 F), height 167.6 cm (5' 6), weight 68.5 kg (151 lb), last menstrual period 07/24/2021, SpO2 92 %. Body mass index is 24.37 kg/m . HEENT: Normal cephalic, ataumatic, pupils are equally round, sclera are anicteric, mucous membranes are moist, oropharynx is clear. Neck has no masses, asymmetry or lymphadenopathy. Respiratory: Clear to auscultation and percussion. Normal respiratory excursion and pattern. Cardiac: Examination is regular rate and rhythm. Normal S1/S2 Abdominal exam: Soft, nontender, with no palpable masses. No hepatosplenomegaly. No palpable hernias. Extremities: no clubbing, cyanosis or edema. No adenopathy. LABORATORY VALUES: As Noted RADIOLOGIC STUDIES: As Noted Assessment IMPRESSION: encounter for screening colonoscopy PLAN: I have reviewed my findings with the surgeon. Will plan for lower endoscopy. We discussed the risks and benefits of the planned endoscopy. I have informed the patient that complications can occur including failure to complete the endoscopy and perforation. The patient had the opportunity to ask questions concerning the planned endoscopy. My staff has also explained the procedure to the patient in understandable terms and has given the patient printed material concerning the procedure. The patient freely consents to surgery. The patient was offered a surgery/procedure at a [facility] facility. I have counseled the patient regarding the risk of exposure to and/or potential harm posed by the COVID-19 virus with having a surgery/procedure at this time versus the risk of delaying the surgery/procedure. It is not possible to know either the risk of delaying the surgery or procedure or chance of getting an infection with perfect accuracy, but a joint decision was made between the patient and myself to proceed at this time with endoscopy. I plan to use Golytely bowel preparation I have explained to the patient the difference between IV conscious sedation and MAC anesthesia - and I have offered either, according to the patient's wishes. I have explained that with IV conscious sedation there is no anesthesia provider available and therefore there is a limitation of the amount of IV medications that can be given and that the patient may wake up in the middle of the procedure and/or experience pain/discomfort during the procedure. Further discussion was done and the patient was given the opportunity to ask questions and all questions were answered. The patient chooses IV conscious sedation Diagnoses: (Z12.11) Screening for colon cancer Consultation requested by Dr. Winter for an opinion regarding screening colonoscopy. My final recommendations will be communicated back to the requesting physician by way of shared Medical record or letter to requesting physician via US mail. Gracie Freeman PA-C documented in this encounter [facility] 09-05-2021 History of Presen t illness Narrative Radiology Service Progress Note PATIENT NAME: Harrison Guido DATE OF SERVICE: September 05, 2021 TIME: 9:25 AM PATIENT IDENTITY VERIFICATION COMPLETED USING TWO (2) IDENTIFIERS: Name and Date of confirmed by patient verbally. FALL SCREENING: Has the patient had 2 falls in the last year or 1 fall with injury or currently using an Ambulatory Assistive Device (Walker, Cane, Wheelchair, Crutches, etc.)? No PATIENT GENDER DATA: Female. status: : No status: N/A PATIENT RELEVANT IMPLANT DATA REVIEWED: Not Applicable RADIOLOGY DEPARTMENT: Ultrasound PERIPHERAL IV DATA: Not applicable SIGNED BY: Yashira Meyers RDMS RVT September 05, 2021 9:25 AM documented in this encounter [facility] 08-22-2021 Miscellaneous Notes 10-10-2021 Colon [facility] documented in this encounter [facility] 07-27-2021 History of Past i llness Narrative Problem Noted Date Resolved Date Bipolar I disorder, most rec ent episode (or current) unspecified 07/27/2021 documented as of this encounter (statuses as of 09/06/2021) [facility] History of Past illness Narrative* Problem Noted Date Resolved Date Bipolar I disorder, most rec ent episode (or current) unspecified 07/27/2021 documented as of this encounter (statuses as of 10/10/2021) [facility] History of Past illness Narrative* Problem Noted Date Resolved Date Bipolar I disorder, most rec ent episode (or current) unspecified 07/27/2021 documented as of this encounter (statuses as of 10/11/2021) [facility] History of Past illness Narrative* Problem Noted Date Resolved Date Bipolar I disorder, most rec ent episode (or current) unspecified 07/27/2021 documented as of this encounter (statuses as of 10/25/2021) [facility] History of Past illness Narrative* Problem Noted Date Resolved Date Bipolar I disorder, most rec ent episode (or current) unspecified 07/27/2021 documented as of this encounter (statuses as of 02/14/2022) [facility] History of Past illness Narrative* Problem Noted Date Resolved Date Bipolar I disorder, most rec ent episode (or current) unspecified 07/27/2021 documented as of this encounter (statuses as of 04/25/2022) [address]10-2022 History of Past illness Narrative* Problem Noted Date Resolved Date Bipolar I disorder, most rec ent episode (or current) unspecified 07/27/2021 documented as of this encounter (statuses as of 05/01/2022) [address]10-2022 History of Past illness Narrative* Problem Noted Date Resolved Date Bipolar I disorder, most rec ent episode (or current) unspecified 07/27/2021 documented as of this encounter (statuses as of 05/01/2022) [address]-2022 History of Past illness Narrative* Problem Noted Date Resolved Date Bipolar I disorder, most rec ent episode (or current) unspecified 07/27/2021 documented as of this encounter (statuses as of 08/10/2022) [facility] History of Past illness Narrative* Problem Noted Date Resolved Date Bipolar I disorder, most rec ent episode (or current) unspecified 07/27/2021 documented as of this encounter (statuses as of 08/14/2022) [address]22 History of Past illness Narrative* Problem Noted Date Resolved Date Bipolar I disorder, most rec ent episode (or current) unspecified 07/27/2021 documented as of this encounter (statuses as of 09/10/2022) [facility] History of Past illness Narrative* Problem Noted Date Resolved Date Bipolar I disorder, most rec ent episode (or current) unspecified 07/27/2021 documented as of this encounter (statuses as of 09/27/2022) [facility] History of Past illness Narrative* Problem Noted Date Resolved Date Bipolar I disorder, most rec ent episode (or current) unspecified 07/27/2021 documented as of this encounter (statuses as of 10/15/2022) [facility]02-10-2022 History of Past illness Narrative* Problem Noted Date Resolved Date Bipolar I disorder, most rec ent episode (or current) unspecified 07/27/2021 documented as of this encounter (statuses as of 10/15/2022) [facility]-10-2022 History of Past illness Narrative* Problem Noted Date Resolved Date Bipolar I disorder, most rec ent episode (or current) unspecified 07/27/2021 documented as of this encounter (statuses as of 10/15/2022) [address]10-2022 History of Past illness Narrative* Problem Noted Date Resolved Date Bipolar I disorder, most rec ent episode (or current) unspecified 07/27/2021 documented as of this encounter (statuses as of 10/15/2022) [address]-2022 History of Past illness Narrative* Problem Noted Date Diagnosed Date Resolved Date Bipolar I disorder, most rec ent episode (or current) unspecified 07/27/2021 documented as of this encounter (statuses as of 04/21/2023) [place] [address] History of Past illness Narrative* Problem Noted Date Diagnosed Date Resolved Date Bipolar I disorder, most rec ent episode (or current) unspecified 07/27/2021 documented as of this encounter (statuses as of 05/23/2023) [facility]-10[facility]2022 History of Past illness Narrative* Problem Noted Date Diagnosed Date Resolved Date Bipolar I disorder, most rec ent episode (or current) unspecified 07/27/2021 documented as of this encounter (statuses as of 07/19/2023) [facility]20[facility] History of Past illness Narrative* Problem Noted Date Diagnosed Date Resolved Date Bipolar I disorder, most rec ent episode (or current) unspecified 07/27/2021 documented as of this encounter (statuses as of 07/30/2023) [facility]2022 History of Past illness Narrative* Problem Noted Date Diagnosed Date Resolved Date Bipolar I disorder, most rec ent episode (or current) unspecified 07/27/2021 documented as of this encounter (statuses as of 09/23/2023) [facility]20[facility] History of Past illness Narrative* Problem Noted Date Diagnosed Date Resolved Date Bipolar I disorder, most rec ent episode (or current) unspecified 07/27/2021 documented as of this encounter (statuses as of 10/05/2023) [facility]11-29-2015 History of Present illness Narrative* Stefanie Ramos, CT - 05/15/2015 10:17 PM EST Radiology Service Progress Note PATIENT NAME: Harrison Guido DATE OF SERVICE: May 15, 2015 TIME: 10:17 PM PATIENT IDENTITY VERIFICATION COMPLETED USING TWO (2) METHODS: Patient confirmed name verbally and ID band matches.. PATIENT GENDER DATA: Female. status: : No status: N/A PATIENT RELEVANT IMPLANT DATA REVIEWED: Not Applicable CONTRAST INDUCED NEPHROPATHY RISK FACTORS: Not applicable CREATININE: CREATININE Date Value Ref Range Status 05/15/2015 0.87 0.70 - 1.40 mg/dL Final 03/03/2014 0.92 0.70 - 1.40 mg/dL Final EGFR-ALL OTHER RACES Date Value Ref Range Status 05/15/2015 >60 . Final Comment: eGFR (Estimated GFR) Units of measure: mL/min/1.73 meters squared eGFR is derived from the reexpressed MDRD Study equation using the following parameters: serum creatinine, age, gender and race. The creatinine assay has been calibrated to be traceable to IDMS. An eGFR <60 mL/min/1.73m2 for >3 months is consistent with chronic kidney disease. Refer to KDOQI guidelines for clinical interpretation. In patients with unstable renal function, e.g. those with acute kidney injury, the eGFR may not accurately reflect actual GFR. EGFR- Date Value Ref Range Status 03/03/2014 >60 Final P.O.C.T. RESULTS: POCT Creatinine Results: 0.87 mg/dl and Q.C. = OK. May 15, 2015 Reference range (age 0-9 years) 0.30 - 1.00 mg/dl. Reference range (age 10-14 years) 0.30 - 1.20 mg/dl. Reference range (age 15-18 years) 0.40 - 1.30 mg/dl. Reference range (age 19-99 years) 0.70 - 1.40 mg/dl. CALCULATED GFR: 60 RADIOLOGIST NOTIFIED?: No ALLERGIES: Reviewed and unchanged CONTRAST ALLERGY: NO. IV SITE: Inpatient - refer to LDA documentation RADIOLOGY DEPARTMENT: CT; Exam(s) Completed: Abdomen/Pelvis PERIPHERAL IV ACCESS: Inpatient see [facility] documentation SIGNED BY: RENETTA Garcia May 15, 2015 10:17 PM [facility] Diagnosis Abnormal mammogram Abnormal mammogram, unspecified documented in this encounter [facility] noteNo assessment information availableWTriHealth [facility] Work Phone: Evaluation note* Diagnosis Screening for colon cancer- Primary Special screening for malignant neoplasms, colon documented in this encounter [facility] note* Diagnosis Screening for colon cancer Special screening for malignant neoplasms, colon documented in this encounter [facility] note* Diagnosis Scar of hand- Primary Scar condition and fibrosis of skin documented in this encounter [facility] note* Diagnosis Onset Date Resolution Status Irritant dermatitis acute [facility] Work Phone: Evaluation note* Diagnosis Leukocytosis, unspecified type- Primary [facility]* Diagnosis Pre-op evaluation- Primary Preoperative examination, unspecified Generalized anxiety disorder with panic attacks [facility]* Diagnosis Menorrhagia with regular cycle Excessive or frequent menstruation [facility]* Diagnosis Menorrhagia with regular cycle- Primary Excessive or frequent menstruation Metrorrhagia documented [facility]* Diagnosis Visit for screening mammogram- Primary Other screening mammogram [facility]* Diagnosis Menorrhagia with regular cycle- Primary Excessive or frequent menstruation Metrorrhagia [facility]* Diagnosis Annual physical exam- Primary Routine general medical examination at a [facility] facility Screening for hyperlipidemia Screening for lipoid disorders Generalized anxiety disorder with panic attacks [facility]* Diagnosis Travel advice encounter- Primary Other specified counseling [facility]* Diagnosis Encounter for screening mammogram for breast cancer documented [facility]* Diagnosis Toenail fungus- Primary Dermatophytosis of nail [facility]* Diagnosis Onychodystrophy- Primary Other specified disease of nail Toenail fungus Dermatophytosis of nail Hallux valgus of left foot Hallux valgus of right foot [facility]* Diagnosis Impacted cerumen of right ear- Primary Impacted cerumen Right ear pain Otalgia, unspecified Decreased hearing of right ear Other acute nonsuppurative otitis media of right ear, recurrence not specified [facility]* Diagnosis Generalized anxiety disorder with panic attacks [facility]* Diagnosis Pre-op evaluation Preoperative examination, unspecified [facility] Diagnosis Encounter for screening mammogram for breast cancer documented in this encounter [facility] for referral (narrative)* Diagnostic Procedure Only (Routine) - Closed Specialty Diagnoses / Procedures Referred By Lynda t Referred To Contact [facility] Diagnoses Abnormal mammogram Procedures US BREAST LTD LT US BREAST UNI REAL TIME WITH IMAGE LIMITED Ganesh Winter MD [address] [place] [address] [facility] [address] [place] [address] Referral ID Status Reason Start Date Expiration Date V isits Requested Visits Authorized [id number] Closed Auto-Generate d Referral 08/03/2021 09/02/2022 1 1 [facility] for referral (narrative)* Outpatient Procedure (Routine) - Closed Specialty Diagnoses / Procedures Referred By Contac t Referred To [facility] Diagnoses Screening for colon cancer Procedures COLONOSCOPY SCREENING COLONOSCOPY FLX DX W/COLLJ SPEC WHEN Gracie Correia PA-C [address] [place] [address] [facility] [place] [address] [place] [address] Referral ID Status Reason Start Date Expiration Date V isits Requested Visits Authorized [id number] Closed Auto-Generate d Referral 08/22/2021 08/22/2022 1 1 [facility] for referral (narrative)* Outpatient Procedure (Routine) - Closed Specialty Diagnoses / Procedures Referred By Contac t Referred To [facility] Diagnoses Screening for colon cancer Procedures COLONOSCOPY SCREENING COLONOSCOPY FLX DX W/COLLJ SPEC WHEN Gracie Correia PA-C [address] [place] [address] [facility] [place] [address] [place] [address] Referral ID Status Reason Start Date Expiration Date V isits Requested Visits Authorized [id number] Closed Auto-Generate d Referral 08/22/2021 08/22/2022 1 1 [facility] for referral (narrative)* Outpatient Procedure (Routine) - Closed Specialty Diagnoses / Procedures Referred By Contac t Referred [facility] Diagnoses Pre-op evaluation Procedures ECG COMPLETE ECG ROUTINE ECG W/LEAST 12 LDS W/I&R Ganesh Winter MD [address] [place] [address] [facility] [place] [address] [place] [address] Referral ID Status Reason Start Date Expiration Date V isits Requested Visits Authorized [id number] Closed Auto-Generate d Referral 04/24/2022 04/24/2023 1 1 [facility] for referral (narrative)* Diagnostic Procedure Only (Routine) - Closed Specialty Diagnoses / Procedures Referred By Lynda aldana Referred To Contact [facility] Diagnoses Visit for screening mammogram Procedures ANGEL SCREENING SCREENING MAMMOGRAPHY BI 2-VIEW BREAST INC Ganesh Caballero MD [address] [place] [address] [facility] [address] [place] [phone] Referral ID Status Reason Start Date Expiration Date V isits Requested Visits Authorized [id number] Closed Auto-Generate d Referral 08/08/2022 09/06/2023 1 1 [facility] for referral (narrative)* Diagnostic Procedure Only (Routine) - Pending Review Specialty Diagnoses / Procedures Referred By Lynda aldana Referred To Contact [facility] Diagnoses Encounter for screening mammogram for breast cancer Procedures ANGEL SCREENING SCREENING MAMMOGRAPHY BI 2-VIEW BREAST INC Ganesh Caballero MD [facility] [place] [address] [facility] [address] [place] [address] Referral ID Status Reason Start Date Expiration Date Visits Requested Visits Authorized [id number] Pending Review Auto-Generat ed Referral 09/18/2023 10/17/2024 1 1 [facility] ([facility]No reason for referral information availableWTriHealth [facility] Work Phone: Reason for visit Narrative* Outpatient Procedure (Routine) - Closed Specialty Diagnoses / Procedures Referred By Lynda aldana Referred To Contact [facility] Diagnoses Screening for colon cancer Procedures COLONOSCOPY SCREENING COLONOSCOPY FLX DX W/COLLJ SPEC WHEN [facility] Gracie Freeman PA-C [address] [place] [address] [facility] [place] [address] [place] [address] Referral ID Status Reason Start Date Expiration Date V isits Requested Visits Authorized [id number] Closed Auto-Generate d Referral 08/22/2021 08/22/2022 1 1 [facility] N[facility]* Diagnostic Procedure Only (Routine) - Closed Specialty Diagnoses / Procedures Referred By Lynda aldana Referred To Contact [facility] Diagnoses Visit for screening mammogram Procedures ANGEL SCREENING SCREENING MAMMOGRAPHY BI 2-VIEW BREAST INC Ganesh Caballero MD [address] [place] [address] [facility] [address] [place] [address] Referral ID Status Reason Start Date Expiration Date V isits Requested Visits Authorized [id number] Closed Auto-Generate d Referral 08/08/2022 09/06/2023 1 1 [facility] Summary Purpose Family History No Family History Records Found Relationship Condition Age at Onset Recorded Date/T glenn Unknown Family History?No pe rtinent history Unknown June 03, 2017 2:44pm Family History?No pe rtinent history Unknown June 03, 2017 2:44pm Relationship Condition Age at Onset Recorded Date/T glenn Unknown Family History?No pe rtinent history Unknown June 03, 2017 1:44pm Family History?No pe rtinent history Unknown June 03, 2017 1:44pm Advance Directives No Advanced Directives Records Found Advance Directive Response Recorded Date/ Time Living Will No September 29, 2018 10:23am Power of Lettuce Trimmer No September 29 10:23am Documents on File Type Date Recorded 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 SELF PAY DRY NEEDLE INCOMPLETE RC TEAR OR RUPTURE/RX HERE Chief Complaint RASH/GROIN/FEET Reason for Visit Irritant dermatitis Chief Complaint Strain of muscle, fa scia and tendon of long head o Chief Complaint Admit Date TESTOSTERONE PROFILE October 30, 2024 10:1 5am Medications Administered Section Inactive Administered Medications - up to 3 most recent administrations Medication Order MAR Action Action Date Dose Rate Site diphenhydrAMINE 12.5-50 mg injection (BENADRYL) 12.5-50 mg, INTRAVENOUS, DIRECTED, Starting on Sat10/10/21 at 1000, Until Sat10/10/21 at 1359, DOSING DIRECTED BY PHYSICIAN FOR PROCEDURAL SEDATION ONLY, Intraprocedure Given by [facility] 10/10/2021 9:41 AM EDT 50 mg fentaNYL 50 mcg/mL 25-100 mcg injection (SUBLIMAZE) 25-100 mcg, INTRAVENOUS, DIRECTED, Starting on Sat10/10/21 at 1000, Until Sat10/10/21 at 1359, DOSING DIRECTED BY PHYSICIAN FOR PROCEDURAL SEDATION ONLY, Intraprocedure Given by [facility] 10/10/2021 9:39 AM EDT 50 mcg Given 10/10/2021 9:37 AM EDT 50 mcg lactated ringers iv infusion 30 mL/hr, INTRAVENOUS, CONTINUOUS, Starting on Sat10/10/21 at 0900, Until Sat10/10/21 at 1011, Preprocedure New Bag/Syringe/Bottle 10/10/2021 9:00 AM EDT 30 mL/hr 30 mL/hr Arm, Right midazolam (PF) 1-5 mg injection (VERSED) 1-5 mg, INTRAVENOUS, DIRECTED, Starting on Sat10/10/21 at 1000, Until Sat10/10/21 at 1359, DOSING DIRECTED BY PHYSICIAN FOR PROCEDURAL SEDATION ONLY, Intraprocedure Given 10/10/2021 9:50 AM EDT 1 mg Given 10/10/2021 9:45 AM EDT 2 mg Given by [facility] 10/10/2021 9:39 AM EDT 2 mg Health Concerns Infection Onset Date Last Indicated Resolved Time COVID-19 Confirmed 10/24/2021 10/24/2021 Infection Onset Date Last Indicated Resolved Time COVID-19 Confirmed 10/24/2021 10/24/2021 8:51 PM EDT Reason for Referral Specialty Diagnoses / Procedures Referred By Contac t Referred To Contact Podiatry Diagnoses Toenail fungus Procedures CONSULT TO PODIATRY OFFICE/OUTPATIENT [facility] 60 MINUTES Juana Franklin PA-C [address] [place] [address] Referral ID Status Reason Start Date Expiration Date Visits Requested Visits Authorized [id number] Authorized PCP Requested Referral 10/05/2023 10/04/2024 1 1 Additional Source Comments INFORMATION SOURCE (unrecogn ized section and content) DATE CREATED AUTHOR 12/11/2017 [facility] DATE CREATED AUTHOR AUTHOR'S ORGANIZ ATION 12/11/2017 [facility] DATE CREATED AUTHOR AUTHOR'S ORGANIZ ATION 10/15/2022 [facility] DATE CREATED AUTHOR AUTHOR'S ORGANIZ ATION 09/20/2024 [facility] DATE CREATED AUTHOR AUTHOR'S ORGANIZ ATION 01/15/2025 [facility] Source Comments (unrecognize d section and content) In the event this informatio n is protected by the Federal Confidentiality of Alcohol and Drug Abuse Patient Records regulations: The Federal rules restrict any use of the information to criminally investigate or prosecute any alcohol or drug abuse patient.[facility] the event this information is protected by the Federal Confidentiality of Alcohol and Drug Abuse Patient Records regulations: The Federal rules restrict any use of the information to criminally investigate or prosecute any alcohol or drug abuse patient.[facility] the event this information is protected by the Federal Confidentiality of Alcohol and Drug Abuse Patient Records regulations: The Federal rules restrict any use of the information to criminally investigate or prosecute any alcohol or drug abuse patient.[facility] the event this information is protected by the Federal Confidentiality of Alcohol and Drug Abuse Patient Records regulations: The Federal rules restrict any use of the information to criminally investigate or prosecute any alcohol or drug abuse patient.[facility]In the event this information is protected by the Federal Confidentiality of Alcohol and Drug Abuse Patient Records regulations: The Federal rules restrict any use of the information to criminally investigate or prosecute any alcohol or drug abuse patient.[facility] the event this information is protected by the Federal Confidentiality of Alcohol and Drug Abuse Patient Records regulations: The Federal rules restrict any use of the information to criminally investigate or prosecute any alcohol or drug abuse patient.[facility]In the event this information is protected by the Federal Confidentiality of Alcohol and Drug Abuse Patient Records regulations: The Federal rules restrict any use of the information to criminally investigate or prosecute any alcohol or drug abuse patient.[facility]In the event this information is protected by the Federal Confidentiality of Alcohol and Drug Abuse Patient Records regulations: The Federal rules restrict any use of the information to criminally investigate or prosecute any alcohol or drug abuse patient.[facility]In the event this information is protected by the Federal Confidentiality of Alcohol and Drug Abuse Patient Records regulations: The Federal rules restrict any use of the information to criminally investigate or prosecute any alcohol or drug abuse patient.[facility]In the event this information is protected by the Federal Confidentiality of Alcohol and Drug Abuse Patient Records regulations: The Federal rules restrict any use of the information to criminally investigate or prosecute any alcohol or drug abuse patient.[facility] HospitalIn the event this information is protected by the Federal Confidentiality of Alcohol and Drug Abuse Patient Records regulations: The Federal rules restrict any use of the information to criminally investigate or prosecute any alcohol or drug abuse patient.[facility] HospitalIn the event this information is protected by the Federal Confidentiality of Alcohol and Drug Abuse Patient Records regulations: The Federal rules restrict any use of the information to criminally investigate or prosecute any alcohol or drug abuse patient.[facility] HospitalIn the event this information is protected by the Federal Confidentiality of Alcohol and Drug Abuse Patient Records regulations: The Federal rules restrict any use of the information to criminally investigate or prosecute any alcohol or drug abuse patient.[facility] HospitalIn the event this information is protected by the Federal Confidentiality of Alcohol and Drug Abuse Patient Records regulations: The Federal rules restrict any use of the information to criminally investigate or prosecute any alcohol or drug abuse patient.[facility] HospitalIn the event this information is protected by the Federal Confidentiality of Alcohol and Drug Abuse Patient Records regulations: The Federal rules restrict any use of the information to criminally investigate or prosecute any alcohol or drug abuse patient.[facility] HospitalIn the event this information is protected by the Federal Confidentiality of Alcohol and Drug Abuse Patient Records regulations: The Federal rules restrict any use of the information to criminally investigate or prosecute any alcohol or drug abuse patient.[facility] HospitalIn the event this information is protected by the Federal Confidentiality of Alcohol and Drug Abuse Patient Records regulations: The Federal rules restrict any use of the information to criminally investigate or prosecute any alcohol or drug abuse patient.[facility] HospitalIn the event this information is protected by the Federal Confidentiality of Alcohol and Drug Abuse Patient Records regulations: The Federal rules restrict any use of the information to criminally investigate or prosecute any alcohol or drug abuse patient.[facility] HospitalIn the event this information is protected by the Federal Confidentiality of Alcohol and Drug Abuse Patient Records regulations: The Federal rules restrict any use of the information to criminally investigate or prosecute any alcohol or drug abuse patient.[facility] HospitalIn the event this information is protected by the Federal Confidentiality of Alcohol and Drug Abuse Patient Records regulations: The Federal rules restrict any use of the information to criminally investigate or prosecute any alcohol or drug abuse patient.[facility] HospitalIn the event this information is protected by the Federal Confidentiality of Alcohol and Drug Abuse Patient Records regulations: The Federal rules restrict any use of the information to criminally investigate or prosecute any alcohol or drug abuse patient.[facility] HospitalIn the event this information is protected by the Federal Confidentiality of Alcohol and Drug Abuse Patient Records regulations: The Federal rules restrict any use of the information to criminally investigate or prosecute any alcohol or drug abuse patient.[facility] HospitalIn the event this information is protected by the Federal Confidentiality of Alcohol and Drug Abuse Patient Records regulations: The Federal rules restrict any use of the information to criminally investigate or prosecute any alcohol or drug abuse patient.[facility] HospitalIn the event this information is protected by the Federal Confidentiality of Alcohol and Drug Abuse Patient Records regulations: The Federal rules restrict any use of the information to criminally investigate or prosecute any alcohol or drug abuse patient.[facility]In the event this information is protected by the Federal Confidentiality of Alcohol and Drug Abuse Patient Records regulations: The Federal rules restrict any use of the information to criminally investigate or prosecute any alcohol or drug abuse patient.[facility] HospitalIn the event this information is protected by the Federal Confidentiality of Alcohol and Drug Abuse Patient Records regulations: The Federal rules restrict any use of the information to criminally investigate or prosecute any alcohol or drug abuse patient.[facility] HospitalIn the event this information is protected by the Federal Confidentiality of Alcohol and Drug Abuse Patient Records regulations: The Federal rules restrict any use of the information to criminally investigate or prosecute any alcohol or drug abuse patient.[facility] HospitalIn the event this information is protected by the Federal Confidentiality of Alcohol and Drug Abuse Patient Records regulations: The Federal rules restrict any use of the information to criminally investigate or prosecute any alcohol or drug abuse patient.[facility] HospitalIn the event this information is protected by the Federal Confidentiality of Alcohol and Drug Abuse Patient Records regulations: The Federal rules restrict any use of the information to criminally investigate or prosecute any alcohol or drug abuse patient.[facility] HospitalIn the event this information is protected by the Federal Confidentiality of Alcohol and Drug Abuse Patient Records regulations: The Federal rules restrict any use of the information to criminally investigate or prosecute any alcohol or drug abuse patient.[facility] Reason for Visit (unrecogniz ed section and content) Reason Comments Radiology US Specialty Diagnoses / Procedures Referred By Lynda t Referred To Contact [facility] Diagnoses Abnormal mammogram Procedures ANGEL DIAGNOSTIC LT DIAGNOSTIC MAMMOGRAPHY COMPUTER-AIDED DETCJ UNI Ganesh Winter MD [address] [place] [address] [facility] [address] [place] [address] Referral ID Status Reason Start Date Expiration Date V isits Requested Visits Authorized [id number] Closed Auto-Generate d Referral 08/03/2021 09/02/2022 1 1 Reason Comments 10-10-2021 Colon [facility] Reason Comments Results Reason Comments Derm Problem Inside right hand; h ad blood blister. Healing and has a dry raised area, painful Reason Comments Follow Up 6 month Reason Comments Medical Clearance Surgical clearance i nformation forwarded to Dr Rao as requested by patient and PCP Reason Comments Irregular Menstrual Cycle Reason Comments Pre-Op Visit Reason Comments Radiology XR Reason Comments Physical Reason Comments Request for a letter Reason Comments Travel Nurse Visit Follow Up Travel visit Reason Comments Ingrown Toenail Reason Comments Established Patient Follow Up Nail Fungus Specialty Diagnoses / Procedures Referred By Lynda t Referred To Contact Podiatry Diagnoses Toenail fungus Procedures CONSULT TO PODIATRY OFFICE/OUTPATIENT NEW HIGH MDM 60 MINUTES Juana Franklin PA-C [address] [place] [address] Referral ID Status Reason Start Date Expiration Date V isits Requested Visits Authorized [id number] Closed PCP Requested Referral 10/05/2023 10/04/2024 1 1 Reason Comments Ear Pain R ear pain, unable t o hear, pain down neck, x 2 days increasing. HeadacheNasal congestion, headache on R side, Sinus Problem Pressure and pain in face and sinuses, nasal drainage x 1 month Reason Comments Patient Question Reason Onset Date Comments Refill Request 01/21/2024 Care Teams (unrecognized sec tion and content) Injection Moulding Machine Operator Relationship Specialty Start Date End Date Ganesh Winter MD [address] [place], [place] [id number] PCP - General Family Practice 06/07/21 Injection Moulding Machine Operator Relationship Specialty Start Date End Date Ganesh Winter MD [address] [place] [address] PCP - General Family Practice 06/07/21 Injection Moulding Machine Operator Relationship Specialty Start Date End Date Ganesh Winter MD [address] [place], [place] [id number] [phone] PCP - General Family Practice 06/07/21 Injection Moulding Machine Operator Relationship Specialty Start Date End Date Ganesh Winter MD [address] [place] [address] PCP - General Family Practice 06/07/21 Injection Moulding Machine Operator Relationship Specialty Start Date End Date Ganesh Winter MD [address] [place], [place] [id number] [phone] PCP - General Family Practice 06/07/21 Injection Moulding Machine Operator Relationship Specialty Start Date End Date Ganesh Winter MD [address] [place], [place] [id number] [phone] PCP - General Family Medicine 06/07/21 Injection Moulding Machine Operator Relationship Specialty Start Date End Date Ganesh Winter MD [address] [facility] [place] [address] PCP - General Family Medicine 06/07/21 Injection Moulding Machine Operator Relationship Specialty Start Date End Date Ganesh Winter MD [address] [place] [place] [address] PCP - General Family Medicine 06/07/21 Injection Moulding Machine Operator Relationship Specialty Start Date End Date Ganesh Winter MD [address] [place] [address] PCP - General Family Medicine 06/07/21 Injection Moulding Machine Operator Relationship Specialty Start Date End Date Ganesh Winter MD [address] [place] [place] [address] PCP - General Family Medicine 06/07/21 Injection Moulding Machine Operator Relationship Specialty Start Date End Date Ganesh Winter MD [facility] [place] [address] PCP - General Family Medicine 06/07/21 Injection Moulding Machine Operator Relationship Specialty Start Date End Date Ganesh Winter MD [address] [place] [place] [address] PCP - General Family Medicine 06/07/21 Injection Moulding Machine Operator Relationship Specialty Start Date End Date Kyle Young MD [address] [place] [address] PCP - General 07/14/08 09/16/17 Lew Ortega III, MD [address] [place] [place] [address] PCP - General Family Medicine 09/17/17 06/06/21 Ganesh Winter MD [facility] [place] [place] [address] PCP - General Family Medicine 06/07/21 Injection Moulding Machine Operator Relationship Specialty Start Date End Date Lew Ortega III, MD PCP - General Family Medicine 09/17/17 06/06/21 Ganesh Winter MD [address] [place] [address] PCP - General Family Medicine 06/07/21 Injection Moulding Machine Operator Relationship Specialty Start Date End Date Lew Ortega III, MD PCP - General Family Medicine 09/17/17 06/06/21 Ganesh Winter MD [address] [place] [address] PCP - General Family Medicine 06/07/21 Injection Moulding Machine Operator Relationship Specialty Start Date End Date Ganesh Winter MD [address] [place] [address] PCP - General Family Medicine 06/07/21 Injection Moulding Machine Operator Relationship Specialty Start Date End Date Ganesh Winter MD [address] [place] [address] PCP - General Family Medicine 06/07/21 Team Status: Active Member Role Status Dates Dr. Lew Ortega III, MD Family Provider Active Dr. Woody Winter MD Primary Care Provider Acti ve Team Status: Inactive Member Role Status Dates Dr. Woody Winter MD Primary Care Provider Acti ve Dr. Jayro Atkinson DO Attending Provider, [facility] Provider Active Injection Moulding Machine Operator Relationship Specialty Start Date End Date Ganesh Winter MD [address] [place] [place] [address] PCP - General Family Medicine 06/07/21 Injection Moulding Machine Operator Relationship Specialty Start Date End Date Ganesh Winter MD [address] [place] [address] PCP - General Family Medicine 06/07/21 Injection Moulding Machine Operator Relationship Specialty Start Date End Date Ganesh Winter MD [address] [place] [place] [address] PCP - General Family Medicine 06/07/21 Injection Moulding Machine Operator Relationship Specialty Start Date End Date Ganesh Winter MD [address] [place] [address] PCP - General Family Medicine 06/07/21 Injection Moulding Machine Operator Relationship Specialty Start Date End Date Ganesh Winter MD [address] [place] [address] PCP - General Family Medicine 06/07/21 Injection Moulding Machine Operator Relationship Specialty Start Date End Date Ganesh Winter MD [address] [place] [address] PCP - General Family Medicine 06/07/21 Injection Moulding Machine Operator Relationship Specialty Start Date End Date Ganesh Winter MD [address] [place] [address] PCP - General Family Medicine 06/07/21 Injection Moulding Machine Operator Relationship Specialty Start Date End Date Ganesh Winter MD [address] [place] [address] PCP - General Family Medicine 06/07/21 Injection Moulding Machine Operator Relationship Specialty Start Date End Date Ganesh Winter MD [address] [place] [address] PCP - General Family Medicine 06/07/21 Injection Moulding Machine Operator Relationship Specialty Start Date End Date Ganesh Winter MD [address] [place] [address] PCP - General Family Medicine 06/07/21 PodIndu guzman APRN.CPC CODER [address] [place], [place] [address] [facility] 05/23/24 Sravani Gold, CLARI.[facility]PC CODER [address] [place], [place] [address] [facility] 08/28/24 09/06/24 Sravani Gold, CLARI.CPC CODER [address] [place] [address] [facility] 09/07/24 Team Status: Active Member Role Status Dates Dr. Lew Ortega III, MD Family Provider Active Yashira GOTTLIEB, BLENDING OPERATOR-C Primary Care Provider Activ e Team Status: Inactive Member Role Status Dates Yashira Mendiola VSZeb, BLENDING OPERATOR-C Primary Care Provider Activ e Start: October 28, 2024 End: October 28, 2024 Yashira GOTTLIEB, BLENDING OPERATOR-C Attending Provider Active Start: October 28, 2024 End: October 28, 2024 Team Status: Active Member Role Status Dates Yashira GOTTLIEB, BLENDING OPERATOR-C Primary Care Provider Activ e Start: October 30, 2024 Yashira GOTTLIEB, BLENDING OPERATOR-C Attending Provider Active Start: October 30, 2024 Yashira GOTTLIEB, BLENDING OPERATOR-C Referring Provider Active Start: October 30, 2024 FOR RECORDS PERTAINING TO PATIENTS WHO ARE OR HAVE BEEN ENROLLED IN A CHEMICAL DEPENDENCY/SUBSTANCEABUSE PROGRAM, SOME INFORMATION MAY BE OMITTED. This clinical summary was aggregated from multiple sources. Caution should be exercised in using it in the provision of clinical care. This summary normalizes information from multiple sources, and as a consequence, information in this document may materially change the coding, format and clinical context of patient data. In addition, data may be omitted in some cases. CLINICAL DECISIONS SHOULD BE BASED ON THE PRIMARY CLINICAL RECORDS. [employer] provides no warranty or guarantee of the accuracy or completeness of information in this document.
--- NOTE | 2025-01-22 10:04 | H&P.OPEN ---
HPI - General HPI Narrative CARLOS NEGRON, is a 49 F who presents with dysphagia. She has a long-term history of GERD. She was started on PPI which help with reflux but she is still having dysphagia. She says that protein shakes get stuck but she tolerates food well. [facility] Medical History Heartburn History of shingles Pulmonary embolism DVT (deep venous thrombosis) Wears glasses Anxiety Non-smoker Cardiology follow-up encounter Irritant dermatitis Impingement syndrome, shoulder, left Left shoulder pain HPV test positive Menorrhagia with irregular cycle Neck pain Migraines Hemorrhoids DVT (deep venous thrombosis) Home Medications ?Medication ?Instructions ?Recorded ?Last Taken ?Type acetaminophen 325 mg tablet 650 mg PO ONCE PRN Pain 04/20/21 01/21/25 History (Tylenol) sertraline 50 mg tablet 50 mg PO DAILY 10/05/22 01/21/25 History valacyclovir 1 gram tablet 1 mg PO PRN PRN SHINGLES OUTBREAK 10/05/22 01/21/25 History acetylcarnitine 500 mg capsule 500 mg PO QDAY 12/21/24 01/21/25 History atogepant 60 mg tablet (Qulipta) 60 mg PO QDAY 12/21/24 01/22/25 History caffeine pill 200 mg PO QDAY 12/21/24 01/21/25 History natural accelerator 1 tab PO BID 12/21/24 01/21/25 History omeprazole 40 mg capsule,delayed 40 mg PO QDAY 12/21/24 01/22/25 History release ubrogepant 100 mg tablet (Ubrelvy) 100 mg PO ONCE 12/21/24 01/08/25 History Allergy/AdvReac Type Severity Reaction Status Date / Time adhesive tape Allergy Rash Verified 01/22/25 09:11 oxycodone HCl (From Percocet) Allergy Itching Verified 01/22/25 09:11 Surgical History History of surgery History of abdominoplasty History of umbilical hernia repair History of breast augmentation History of repair of anterior cruciate ligament of left knee H/O oophorectomy S/P ACL repair Social History household members: spouse number of children: 3 current occupational status: employed 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 history of recent travel: No sexually active: Yes Smoking Status: Never smoker alcohol intake: never substance use type: does not use diet: low carbohydrate well-balanced diet: daily or most days caffeine: No what type of physical activity do you participate in: aerobics and weight training frequency: daily duration: > 90 minutes/day seatbelt use: always do you feel safe at home: Yes additional social history: - Valdemar Past Medical/Surgical History Planned Operation Planned Operative Procedure(s): EGD S.O.S: No Previous Hospitalizations/Surgeries HX Hospitalizations: No HX of Surgeries: BREAST AUGMENTATION OVARY REMOVED D AND C Any Problems With Anesthesia: No You/Your Family Experience Fever (Hyperthermia) With Anes: No Cholinesterase deficiency: No Cardiovascular Hx Chest Pain within Last 2 months: No Hx of Irregular Heartbeat and/or Afib: No Hx Heart Attack: No Hx Congestive Heart Failure: No Hx Rheumatic Fever: No Hx Hypertension: No Hx Internal Defibrillator: No Hx Pacemaker: No Hx Cardiac Catheterization: No Hx Cardiac Surgery/Stents/Etc.: No Hx Stress Test: No Hx Pain in Legs when Walking/Leg Cramps: No Respiratory Chronic Cough: No HX of Shortness of Breath: No Hoarseness: No Hx Chronic Obstructive Pulmonary Disease (COPD): No Hx Asthma: No Hx Emphysema: No Hx Sleep Apnea: No Hx Respiratory Tract Infection/Cold (presently): No Do You Snore Loudly (louder than talking or can be heard): No Do You Often Feel Tired/ Fatigued/ Sleepy Dring Daytime?: No Has Anyone Observed You Stop Breathing During Sleep?: No Result (for STOP score): Negative Hx Smoking: No Smoking Status: Never smoker Gastrointestinal Hx Gastrointestinal Disorders: No Hx Gastrointestinal Bleed: No Hx Ulcer: No Hx Hiatal Hernia: No Difficulty Chewing/Swallowing: No Special diet followed at home: Yes (HIGH PROTEIN) Hx Unplanned Weight Loss of 20#: No HX Unplanned Weight Gain of 20#: No Neurological Hx Seizures: No HX Syncope/Blackout Spells/Unconsciousness: No Hx Transient Ischemic Attacks (TIA): No Hx Multiple Sclerosis: No Hx Parkinson's Disease: No Hx Head/Neck Injury: No Hx Headaches: Yes (MIGRAINES FROM FOOD) Hx Back Injury/Pain: No Recent Onset of Speech Difficulty: No Restless Legs: No Does patient have nerve stimulator: No Blood Disorder Hx Leukemia: No Bleeding Tendencies: No Hx Deep Vein Thrombosis: No Hx High Cholesterol: No Blood Transmitted Disease: No Hx Hepatitis: No Hx Cirrhosis: No Hx Anemia: No Hx Blood Disorders: No Reproduction : No Is Patient Lactating: No Hx Hysterectomy: No Hx Tubal Ligation: No Are You Post Menopause: No Genitourinary Hx Renal Disease: No Hx Dialysis: No Musculoskeletal Hx Arthritis: No Hx Rheumatoid Arthritis: No Hx Gout: No Recent Onset of an Orthopedic Problem: Yes (INJURY KNEE 03/2017) Endocrine Hx Diabetes: No Thyroid Disease: No Hx Steroid Therapy: No Psycho/Social Hx Substance Use: No Hx Alcohol Use: Yes (SOCIAL) Hx Anxiety: No Hx Depression: No Mental Illness: No Hx Dementia: No Miscellaneous Hx Cancer: No Recent Exposure to Contagious Disease: No Hx of C-Diff: No Any Loose Teeth: No Allergies adhesive tape Allergy (Verified 01/22/25 09:11) Rash oxycodone HCl (From Percocet) Allergy (Verified 01/22/25 09:11) Itching Maternal: No pertinent history Discharge Is Pt Admitted From a [facility], or a [facility]: No Who Could Help: After D/C, Where Do you Plan to Go: Return Home Vital Signs Vital Signs Vital Signs: 01/22/25 09:12 01/22/25 09:12 01/22/25 09:49 Temperature 97.4 F L 97.4 F L Temperature Source Temporal Pulse Rate 71 71 Respiratory Rate 12 12 Respiratory Pattern Normal Blood Pressure 113/73 113/73 Blood Pressure Mean 86 Blood Pressure Source Monitor Blood Pressure Position Semi-Fowlers Blood Pressure Location Left Arm Pulse Ox 98 98 Oxygen Delivery Method Room Air Room Air Weight Weight: 141 lb 1.533 oz Body Mass Index (BMI) 22.7 Physical Exam Const alert and oriented x3 HEENT normocephalic Eyes PERRL Resp normal respiratory effort and normal air movement Cardio regular rate and regular rhythm GI soft to palpation, non-tender and non-distended Extremity normal to inspection Assessment & Plan Assessment/Plan (1) Difficulty swallowing: PLAN: Patient has background of GERD and is having difficulty swallowing. I discussed EGD with possible dilation. I discussed the increased risks of perforation and bleeding with dilation. I explained endoscopy in detail to the patient. I explained the risks including but not limited to stroke or heart attack with anesthesia, perforation of the GI tract, bleeding, infection. I explained that any of these could necessitate further emergency surgery. The patient understands and all questions were answered sufficiently. The patient wishes to proceed with procedure. David Keys MD Pager: [facility] [address] [place] [address] [address] [place] [address] Office: Surgery Risks - Colonoscopy Risks Include but are not Limited To: Risks include but are not limited to: Bleeding, perforation requiring further surgery, inability to complete colonoscopy requiring barium enema.
[2025-01-22] MEDS: Lactated Ringers 250 ML IV (10:11)
--- NOTE | 2025-01-22 10:27 | PCM.POSTANE2 ---
Anesthesia Postop Eval I Sum Postop Eval Completion status Anesthesia document: Postop Eval 1 completed: Yes Anesthesia Postop Eval I Summary Anesthesia Postop Eval I Summary: Anesthesia Postop Eval I: Assessment Summary Airway patent Spontaneous unlabored respirations Mental status nausea Vomiting Anesthesia Postop Eval I: Fluid Summary Crystalloid volume administer (ml) Colloids volume administered ( ml) Blood Product volume administered (ml) Total IV fluid infused Anesthesia Postop Eval I: Summary Notes Anesthesia Complication Anesthesia Complication Comment: Post-operative progress note Anesthesia: Postop Eval II Evaluation Mental status: Awake and Calm Pain Level: 0 nausea: No Vomiting: No
--- NOTE | 2025-01-22 10:28 | OP.PROVAT_ITS ---
01/22/2025 Yashira Mendiola [facility], Sanitation Laborer-c Re : Upper GI endoscopy procedure for Harrison Romanr Maury This procedure was performed on Wednesday, January 22, 2025. My impressions and recommendations are as follows: Impressions : - Normal esophagus. - Normal stomach. - Normal examined duodenum. - No specimens collected. Recommendations : - Discharge patient to home. - Resume previous diet. - Continue present medications. - Perform ambulatory esophageal manometry at appointment to be scheduled. My findings are described in the full procedure note, which is enclosed. If I can be of further assistance, please feel free to contact me at Doctor phone number(s): , Work: . Sincerely, David Keys MD 01/22/2025 10:28:32 AM This report has been signed electronically.
--- NOTE | 2025-01-22 10:28 | OP.EGD_ITS ---
Patient Name: Harrison Guido Procedure Date: 01/22/2025 10:07 AM Date of : 1975 Age: 49 Procedure: Upper GI endoscopy Indications: Dysphagia Providers: David Keys MD Referring MD: Yashira Mendiola [facility], Biometry Teacher-c Medicines: Propofol per Anesthesia Patient Profile: This is a 49 year old female. Refer to note in patient chart for documentation of history and physical. Complications: No immediate complications. Procedure: Pre-Anesthesia Assessment: - Prior to the procedure, a History and Physical was performed, and patient medications and allergies were reviewed. The patient's tolerance of previous anesthesia was also reviewed. The risks and benefits of the procedure and the sedation options and risks were discussed with the patient. All questions were answered, and informed consent was obtained. Prior Anticoagulants: The patient has taken no anticoagulant or antiplatelet agents. After reviewing the risks and benefits, the patient was deemed in satisfactory condition to undergo the procedure. After obtaining informed consent, the endoscope was passed under direct vision. Throughout the procedure, the patient's blood pressure, pulse, and oxygen saturations were monitored continuously. The Endoscope was introduced through the mouth, and advanced to the fourth part of duodenum. The upper GI endoscopy was accomplished without difficulty. The patient tolerated the procedure well. Scope In: 10:21:46 AM Scope Out: 10:25:29 AM Total Procedure Duration Time 0 hours 3 minutes 43 seconds Findings: The esophagus was normal. The stomach was normal. The examined duodenum was normal. Impression: - Normal esophagus. - Normal stomach. - Normal examined duodenum. - No specimens collected. Recommendation: - Discharge patient to home. - Resume previous diet. - Continue present medications. - Perform ambulatory esophageal manometry at appointment to be scheduled. Procedure Code(s): --- Professional --- 62749, Esophagogastroduodenoscopy, flexible, transoral; diagnostic, including collection of specimen(s) by brushing or washing, when performed (separate procedure) Diagnosis Code(s): --- Professional --- R13.10, Dysphagia, unspecified CPT copyright 2021 [employer]. All rights reserved. The codes documented in this report are preliminary and upon orthopedic coder review may be revised to meet current compliance requirements. David Keys MD 01/22/2025 10:28:32 AM This report has been signed electronically. Number of Addenda: 0 Note Initiated On: 01/22/2025 10:07 AM
== END 2025-01-22 11:10 | disposition home or self-care (01) ==
LOC: EN 08:58 → AC 09:03
PROVIDERS: Anesthesiology; PCP Nurse Practitioner Family; Referring Provider Nurse Practitioner Family; Visit Provider Surgery
PROC: 0DJ08ZZ Inspection of Upper Intestinal Tract, Via Natural or Artificial Opening Endoscopic (ICD-10-PCS; CPT 43235; principal; 2025-01-22 09:55)
DX: R13.10 Dysphagia, unspecified (principal); K21.9 Gastro-esophageal reflux disease without esophagitis; Z79.899 Other long term (current) drug therapy
CPT/HCPCS: 43235; 81025